=== PATIENT | female | born 1930 | race Caucasian/White ===

== ENCOUNTER 2017-08-24 13:48 | Inpatient (IN) | payer MEDICARE ==
[2017-08-24] MEDS ORDERED: SODIUM CHLORIDE 0.9% 1,000 ML IV ONE (14:12)
[2017-08-24] MEDS ORDERED: IBUPROFEN 600 MG TAB PO STA (14:12)
--- NOTE | 2017-08-24 14:20 | ED ---
General Adult HPI - General Chief complaint: Urogenital Stated complaint: Female Time Seen by Provider: 08/24/17 13:55 Source: patient Mode of arrival: ambulatory Limitations: no limitations - History of Present Illness Initial comments: 86-year-old female who presents with a chief complaint of fatigue and lower abdominal pain. The patient states that she was seen at urgent care earlier today where they performed a urinalysis and advised that she go to the emergency department. Review of the patient's urinalysis from urgent care shows mild leukocyte esterases but is otherwise unremarkable. Patient stated her symptoms going on for 3 days intermittently. She cannot identify any inciting incidences. There are no aggravating or alleviating factors. Patient states that her symptoms are worse at night. She admits to intermittent chills and back pain. She denies nausea or vomiting. Regarding the patient's back pain she states that she fell 3 days ago but was able to get herself up off the floor. She states while getting up she feels that she strained her lower back. - Related Data Home Medications Medication Instructions Recorded Confirmed Acetaminophen Tab [Tylenol Tab] 325 mg PO Q4H PRN 08/24/17 08/24/17 Cholecalciferol [Vitamin D3] 1,000 unit PO DAILY 08/24/17 08/24/17 [place] Unknown Dose 1 tab PO TID PRN 08/24/17 08/24/17 Ramipril 1.25 mg PO DAILY 08/24/17 08/24/17 Allergies Allergy/AdvReac Type Severity Reaction Status Date / Time No Known Allergies Allergy Verified 08/24/17 14:27 Review of Systems ROS Statement: Those systems with pertinent positive or pertinent negative responses have been documented in the HPI. ROS Other: All systems not noted in ROS Statement are negative. Constitutional: Reports: chills Respiratory: Reports: cough Genitourinary: Reports: dysuria Musculoskeletal: Reports: back pain Past Medical History Past Medical History: Hyperlipidemia, Hypertension, Thyroid Disorder History of Any Multi-Drug Resistant Organisms: None Reported Past Surgical History: Adenoidectomy, Appendectomy, Hysterectomy, Tonsillectomy Additional Past Surgical History / Comment(s): eye surgery Past Psychological History: No Psychological Hx Reported Smoking Status: Current every day smoker Past Alcohol Use History: None Reported Past Drug Use History: None Reported General Exam Limitations: no limitations General appearance: alert, in no apparent distress Head exam: Present: atraumatic, normocephalic Eye exam: Present: normal appearance ENT exam: Present: mucous membranes moist Neck exam: Absent: tenderness Respiratory exam: Present: normal lung sounds bilaterally. Absent: respiratory distress, wheezes Cardiovascular Exam: Present: normal rhythm, tachycardia GI/Abdominal exam: Present: tenderness (Patient has tenderness in the epigastric and right upper quadrant regions. There is minimal tenderness to palpation of the lower abdomen.) Rectal exam: Present: deferred Extremities exam: Present: normal inspection Back exam: Present: tenderness, CVA tenderness (R), CVA tenderness (L) Neurological exam: Present: alert, oriented X3 Psychiatric exam: Present: normal affect, normal mood Skin exam: Present: warm, dry, intact Course Vital Signs 08/24/17 13:50 Temperature 100.3 F H Pulse Rate 119 H Respiratory 20 Rate Blood Pressure 173/64 O2 Sat by Pulse 98 Oximetry Medical Decision Making - Medical Decision Making Patient presents with a chief complaint of dysuria and fatigue. On initial evaluation, patient is febrile and tachycardic otherwise vital signs are stable. At this time, Sepsis considered with an intraabdominal source. patient will be evaluated with basic and abdominal labs, EKG, cardiac enzymes, and x- rays. I will perform a bedside US to evaluate the gall bladder and further discuss imaging with the patient at that point. patient given motrin, and IVF. EKG performed at 1431 shows sinus tachycardia with a rate of 108 bpm. EKG is otherwise unremarkable. 4:46 PM Lab evaluation of this patient reveals evidence of a urinary tract infection and acute kidney injury with a creatinine of 1.30. Labs are otherwise unremarkable. Computed tomography scan of the abdomen and pelvis shows a 4 mm left-sided obstructing ureteral calculus with mild hydronephrosis. There is perinephric fat stranding out of proportion to other findings likely indicative of pyelonephritis. Patient was started on Rocephin. On reexamination, patient appears well and in no acute distress. I discussed admission with the patient, she is agreeable. This case was discussed with Dr. Vázquez who accepts admission with consults to Dr. Basurto. - Lab Data Result diagrams: 08/24/17 14:41 08/24/17 14:41 Lab Results 08/24/17 08/24/17 08/24/17 Range/Units 14:41 14:41 14:41 WBC 6.1 (3.8-10.6) k/uL RBC 3.95 (3.80-5.40) m/uL Hgb 12.5 (11.4-16.0) gm/dL Hct 38.5 (34.0-46.0) % MCV 97.5 (80.0-100.0) fL MCH 31.7 (25.0-35.0) pg MCHC 32.5 (31.0-37.0) g/dL RDW 13.5 (11.5-15.5) % Plt Count 136 L (150-450) k/uL Neutrophils % 89 % Lymphocytes % 5 % Monocytes % 3 % Eosinophils % 2 % Basophils % 0 % Neutrophils # 5.4 (1.3-7.7) k/uL Lymphocytes # 0.3 L (1.0-4.8) k/uL Monocytes # 0.2 (0-1.0) k/uL Eosinophils # 0.1 (0-0.7) k/uL Basophils # 0.0 (0-0.2) k/uL PT (9.0-12.0) sec INR (<1.2) APTT (22.0-30.0) sec Sodium 139 (137-145) mmol/L Potassium 5.1 (3.5-5.1) mmol/L Chloride 103 (98-107) mmol/L Carbon Dioxide 22 (22-30) mmol/L Anion Gap 14 mmol/L BUN 24 H (7-17) mg/dL Creatinine 1.30 H (0.52-1.04) mg/dL Est GFR (CKD-EPI)AfAm 44 (>60 ml/min/1.73 sqM) Est GFR (CKD-EPI)NonAf 38 (>60 ml/min/1.73 sqM) Glucose 83 (74-99) mg/dL Plasma Lactic Acid Don 1.1 (0.7-2.0) mmol/L Calcium 10.2 (8.4-10.2) mg/dL Total Bilirubin 0.8 (0.2-1.3) mg/dL AST 20 (14-36) U/L ALT 17 (9-52) U/L Alkaline Phosphatase 54 (38-126) U/L Troponin I (0.000-0.034) ng/mL NT-Pro-B Natriuret Pep pg/mL Total Protein 6.3 (6.3-8.2) g/dL Albumin 3.8 (3.5-5.0) g/dL Lipase 78 (23-300) U/L Urine Color Urine Appearance (Clear) Urine pH (5.0-8.0) Ur Specific [place] (1.001-1.035) Urine Protein (Negative) Urine Glucose (UA) (Negative) Urine Ketones (Negative) Urine Blood (Negative) Urine Nitrite (Negative) Urine Bilirubin (Negative) Urine Urobilinogen (<2.0) mg/dL Ur Leukocyte Esterase (Negative) Urine RBC (0-5) /hpf Urine WBC (0-5) /hpf Urine WBC Clumps (None) /hpf Ur Squamous Epith Cells (0-4) /hpf Urine Bacteria (None) /hpf Cellular Casts (0) /lpf 08/24/17 08/24/17 08/24/17 Range/Units 14:41 14:41 14:41 WBC (3.8-10.6) k/uL RBC (3.80-5.40) m/uL Hgb (11.4-16.0) gm/dL Hct (34.0-46.0) % MCV (80.0-100.0) fL MCH (25.0-35.0) pg MCHC (31.0-37.0) g/dL RDW (11.5-15.5) % Plt Count (150-450) k/uL Neutrophils % % Lymphocytes % % Monocytes % % Eosinophils % % Basophils % % Neutrophils # (1.3-7.7) k/uL Lymphocytes # (1.0-4.8) k/uL Monocytes # (0-1.0) k/uL Eosinophils # (0-0.7) k/uL Basophils # (0-0.2) k/uL PT 10.4 (9.0-12.0) sec INR 1.1 (<1.2) APTT 22.5 (22.0-30.0) sec Sodium (137-145) mmol/L Potassium (3.5-5.1) mmol/L Chloride (98-107) mmol/L Carbon Dioxide (22-30) mmol/L Anion Gap mmol/L BUN (7-17) mg/dL Creatinine (0.52-1.04) mg/dL Est GFR (CKD-EPI)AfAm (>60 ml/min/1.73 sqM) Est GFR (CKD-EPI)NonAf (>60 ml/min/1.73 sqM) Glucose (74-99) mg/dL Plasma Lactic Acid Don (0.7-2.0) mmol/L Calcium (8.4-10.2) mg/dL Total Bilirubin (0.2-1.3) mg/dL AST (14-36) U/L ALT (9-52) U/L Alkaline Phosphatase (38-126) U/L Troponin I <0.012 (0.000-0.034) ng/mL NT-Pro-B Natriuret Pep 263 pg/mL Total Protein (6.3-8.2) g/dL Albumin (3.5-5.0) g/dL Lipase (23-300) U/L Urine Color Urine Appearance (Clear) Urine pH (5.0-8.0) Ur Specific [place] (1.001-1.035) Urine Protein (Negative) Urine Glucose (UA) (Negative) Urine Ketones (Negative) Urine Blood (Negative) Urine Nitrite (Negative) Urine Bilirubin (Negative) Urine Urobilinogen (<2.0) mg/dL Ur Leukocyte Esterase (Negative) Urine RBC (0-5) /hpf Urine WBC (0-5) /hpf Urine WBC Clumps (None) /hpf Ur Squamous Epith Cells (0-4) /hpf Urine Bacteria (None) /hpf Cellular Casts (0) /lpf 08/24/17 Range/Units 15:27 WBC (3.8-10.6) k/uL RBC (3.80-5.40) m/uL Hgb (11.4-16.0) gm/dL Hct (34.0-46.0) % MCV (80.0-100.0) fL MCH (25.0-35.0) pg MCHC (31.0-37.0) g/dL RDW (11.5-15.5) % Plt Count (150-450) k/uL Neutrophils % % Lymphocytes % % Monocytes % % Eosinophils % % Basophils % % Neutrophils # (1.3-7.7) k/uL Lymphocytes # (1.0-4.8) k/uL Monocytes # (0-1.0) k/uL Eosinophils # (0-0.7) k/uL Basophils # (0-0.2) k/uL PT (9.0-12.0) sec INR (<1.2) APTT (22.0-30.0) sec Sodium (137-145) mmol/L Potassium (3.5-5.1) mmol/L Chloride (98-107) mmol/L Carbon Dioxide (22-30) mmol/L Anion Gap mmol/L BUN (7-17) mg/dL Creatinine (0.52-1.04) mg/dL Est GFR (CKD-EPI)AfAm (>60 ml/min/1.73 sqM) Est GFR (CKD-EPI)NonAf (>60 ml/min/1.73 sqM) Glucose (74-99) mg/dL Plasma Lactic Acid Don (0.7-2.0) mmol/L Calcium (8.4-10.2) mg/dL Total Bilirubin (0.2-1.3) mg/dL AST (14-36) U/L ALT (9-52) U/L Alkaline Phosphatase (38-126) U/L Troponin I (0.000-0.034) ng/mL NT-Pro-B Natriuret Pep pg/mL Total Protein (6.3-8.2) g/dL Albumin (3.5-5.0) g/dL Lipase (23-300) U/L Urine Color Light Yellow Urine Appearance Cloudy H (Clear) Urine pH 7.0 (5.0-8.0) Ur Specific [place] 1.008 (1.001-1.035) Urine Protein 1+ H (Negative) Urine Glucose (UA) Negative (Negative) Urine Ketones Negative (Negative) Urine Blood Small H (Negative) Urine Nitrite Negative (Negative) Urine Bilirubin Negative (Negative) Urine Urobilinogen <2.0 (<2.0) mg/dL Ur Leukocyte Esterase Moderate H (Negative) Urine RBC 19 H (0-5) /hpf Urine WBC 32 H (0-5) /hpf Urine WBC Clumps Occasional H (None) /hpf Ur Squamous Epith Cells <1 (0-4) /hpf Urine Bacteria Occasional H (None) /hpf Cellular Casts 1 (0) /lpf Disposition Clinical Impression: Urinary tract infection, Ureterolithiasis, SIRS (systemic inflammatory response syndrome) Disposition: ADMITTED IP TO THIS HOSP Is patient prescribed a controlled substance at d/c from ED?: No Referrals: Yung Vázquez MD [Primary Care Provider] - 1-2 days Decision to Admit Reason: Admit from EC - Out of Hospital Transfer - Req. Specs Out of Hospital Transfer - Requested Specifics: Other Non-Acute
[2017-08-24] MEDS ORDERED: RX INFO: IV CONTRAST WAS GIVEN 1 EACH MISC MISCELLANE PRN (14:31)
[2017-08-24 14:53] LABS: Basophils % (A) 0 %; Eosinophils # (A) 0.1 k/uL (0-0.7); Eosinophils % (A) 2 %; HCT 38.5 % (34.0-46.0); HGB 12.5 gm/dL (11.4-16.0); Lymphocytes # (A) 0.3 k/uL (1.0-4.8); Lymphocytes % (A) 5 %; MCH 31.7 pg (25.0-35.0); MCHC 32.5 g/dL (31.0-37.0); MCV 97.5 fL (80.0-100.0); Mean Platelet Volume 8.6; Monocytes # (A) 0.2 k/uL (0-1.0); Monocytes % (A) 3 %; Neutrophils # (A) 5.4 k/uL (1.3-7.7); Neutrophils % (A) 89 %; Platelet Count 136 k/uL (150-450); RBC 3.95 m/uL (3.80-5.40); RDW 13.5 % (11.5-15.5); WBC 6.1 k/uL (3.8-10.6)
[2017-08-24 15:03] LABS: Albumin 3.8 g/dL (3.5-5.0); Calcium 10.2 mg/dL (8.4-10.2); Potassium 5.1 mmol/L (3.5-5.1); Total Bilirubin 0.8 mg/dL (0.2-1.3); Total Protein 6.3 g/dL (6.3-8.2)
[2017-08-24 15:05] LABS: INR 1.1 (<1.2); Partial Thromboplastin Time 22.5 sec (22.0-30.0); Prothrombin Time 10.4 sec (9.0-12.0)
--- NOTE | 2017-08-24 15:14 | XR ---
EXAMINATION TYPE: XR chest 2V DATE OF EXAM: 08/24/2017 COMPARISON: NONE HISTORY: Fever, low back pain TECHNIQUE: Frontal and lateral views of the chest are obtained. FINDINGS: There is no focal air space opacity, pleural effusion, or pneumothorax seen. The cardiac silhouette size is within normal limits. Spondylosis noted in the visualized spine. There is mild spi nal curvature. The aorta is dense. The osseous structures are intact. IMPRESSION: No acute cardiopulmonary process.
--- NOTE | 2017-08-24 15:17 | XR ---
Lumbar spine HISTORY: Back pain No comparisons There is a dextroscoliosis centered at L3. Multilevel spondylosis is present. Loss of bone mineraliza tion is noted. Sclerosis present in the posterior elements of the lower lumbar spine. Lumbar vertebra l bodies show preserved height. Bone mineralization is reduced. There is a calcification superimposed over the left kidney measuring approximately 7 mm. Possible vascular calcifications within the pelvi s. IMPRESSION: Degenerative disc disease, osteopenia, scoliosis and facet arthropathy. Additional findin gs above. Possible nephrolithiasis.
--- NOTE | 2017-08-24 15:39 | CT ---
EXAMINATION TYPE: CT abdomen pelvis wo con DATE OF EXAM: 08/24/2017 COMPARISON: NONE HISTORY: 86-year-old female Female pain CT DLP: 300.5 mGycm. Automated exposure control for dose reduction was used. TECHNIQUE: Contiguous axial scanning of the abdomen and pelvis without IV contrast. Coronal and sagit vaughn reconstructions performed. FINDINGS: Heart is normal size with trace anterior basilar pericardial fluid. Some strandy dependent atelectasi s is noted. No pleural effusion. Small hiatal hernia. Noncontrast appearance of the liver, gallbladder, right adrenal gland, spleen, pancreas shows no guillermo s abnormality. There is a low-density 1.4 cm nodule in the left adrenal gland with attenuation of -7 Hounsfield unit s. There is a 7 mm nonobstructive calculus dependent in the right renal collecting system. No hydrone phrosis. An extrarenal pelvis is present on this side. Nonobstructive 8 mm and 3 mm left renal calculi. There is mild to moderate hydronephrosis which appea rs out of proportion to the degree of perinephric fat stranding and edema. 4 mm calculus at the left UVJ. Multiple pelvic phleboliths. Mild to moderate atherosclerotic calcifications throughout the abdominal aorta and iliac arteries. No dilated small bowel, free fluid, or free air. No mesenteric or retroperitoneal lymphadenopathy. Mild stool burden without pericolonic inflammatory change. There is sigmoid diverticulosis. Pelvic floor relaxation. Uterus surgically absent. No adnexal mass or abnormal fluid collection in th e pelvis. Bones: Degenerated dextroconvex scoliosis. Degenerative changes of the hips. No osseous destructive p rocess. Grade 1 anterolisthesis at L3-L4. IMPRESSION: 1. A 4 mm calculus at the left UVJ with mild to moderate obstructive uropathy. The degree of perinep hric fat stranding and edema is out of proportion to the degree of hydronephrosis suggesting either s uperimposed infection or more likely tiny urine extravasation from pyelosinus backflow. Clinically co rrelate. 2. A 7 mm calculus in the right renal collecting system. This calculus could potentially pass into t he ureter in the near future. 3. Additional nonobstructive left renal calculi measuring up to 8 mm. 4. Pelvic floor relaxation and sigmoid diverticulosis. 5. Small hiatal hernia and a 1.4 cm left adrenal adenoma.
[2017-08-24 15:45] LABS: Appearance,Urine Cloudy (Clear); Bacteria,Urine Occasional /hpf; Bilirubin,Urine Negative (Negative); Blood,Urine Small (Negative); Cellular Casts,Urine 1 /lpf (0); Color,Urine Light Yellow; Glucose,Urine (UA) Negative (Negative); Ketones,Urine Negative (Negative); Leukocyte Esterase,Urine Moderate (Negative); Nitrite,Urine Negative (Negative); Protein,Urine 1+ (Negative); RBC,Urine 19 /hpf (0-5); Specific Gravity,Urine 1.008 (1.001-1.035); Squamous Epithelial Cell,Urine <1 /hpf (0-4); Urobilinogen,Urine <2.0 mg/dL (<2.0); WBC,Urine 32 /hpf (0-5)
[2017-08-24] MEDS ORDERED: cefTRIAXone IN SWFI 1,000 MG/10 ML SYRINGE IVP STA (16:10)
[2017-08-24] MEDS ORDERED: NALOXONE 0.4 MG/ML 1 ML VIAL IV PRN (16:38)
[2017-08-24] MEDS ORDERED: oxyCODONE-APAP 5-325MG 1 EACH TAB PO PRN (16:38)
[2017-08-24] MEDS ORDERED: ONDANSETRON 4 MG/2 ML VIAL IVP PRN (16:38)
[2017-08-24] MEDS ORDERED: IBUPROFEN 400 MG TAB PO PRN (16:38)
[2017-08-24] MEDS ORDERED: TAMSULOSIN 0.4 MG CAP.ER.24H PO STA (18:22)
[2017-08-24] MEDS: SODIUM CHLORIDE 0.9% 1,000 ML IV SCH (19:50)
[2017-08-24] MEDS ORDERED: cefTRIAXone IN SWFI 1,000 MG/10 ML SYRINGE IVP SCH (20:00)
[2017-08-24] MEDS: KETOROLAC 30 MG/ML 1 ML VIAL IVP SCH (23:37)
--- NOTE | 2017-08-25 03:16 | HP ---
HISTORY AND PHYSICAL ATTENDING PHYSICIAN: Dr. Lyndon Vázquez. CHIEF COMPLAINT: Abdominal pain. HISTORY OF PRESENT ILLNESS: This 86-year-old was admitted to the hospital after evaluation in the emergency room. The patient presented to the emergency room with complaints of left flank pain. The patient says she has had some pain off and on for the past few days. The patient today decided to have it checked. She was going to come and drive down the emergency room when she suddenly started having shakiness and basically was unsteady. She felt unsteady. In view of this, she was asked the neighbor to bring her down to the emergency room who did bring her to the ER. The patient is evaluated in the emergency room, noted to have a temperature of 100.3, heart rate 103. The patient also had a CT scan of the abdomen done which revealed evidence of obstructive stone on the left side to the UV junction. There was also another stone in the right kidney. The radiologist report says there is a possibility of some infection not ruled out. The conclusion of the CT scan was the patient has a 4 mm left UVJ stone with [id number] obstructive uropathy and there was perinephric fat stranding and edema. However proportions due to the degree of hydronephrosis suggesting either superimposed infection or more likely tiny urine extravasation from the backflow. There is also a 7 mm calculus in the right renal collecting system with the potential risk of the passing down to this. Also, an additional left intrarenal calculus 8 mm in size and some sigmoid diverticulosis and a hiatal hernia with the left adrenal adenoma. The patient, in view of this, is admitted to the hospital for further medical management. The patient after initial hydration in the emergency room felt a bit better. At the time of my evaluation, patient is feeling fairly well. She is afebrile. However, she is still tachycardic at a rate of 110. Denies any pain. The patient denies any other symptoms. PAST MEDICAL HISTORY: Past medical history is primarily significant for no history of any nephrolithiasis. She has a history of hyperlipidemia. Also has a history of chronic kidney disease stage 3. Degenerative disc disease, lumbosacral area, gastroesophageal reflux with Camargo's esophagitis, and some anxiety disorder. PAST SURGICAL HISTORY: Significant for tonsils and adenoids, appendectomy, eye strabismus surgery, lower eyelid surgery, bilateral cataract surgery, total abdominal hysterectomy with bilateral salpingo-oophorectomy. SOCIAL HISTORY: Patient lives alone. She does exercise regularly. She has 1-5 cigarettes a day. Smoker. She has been smoking for the past 64 years. Alcohol: Glass of wine every day. FAMILY MEDICAL HISTORY: Father at the age of 87, ASHD. Mother at the age of 91, ASHD. A brother at the age of 60 cancer of the thyroid. Daughter in good health at age 67. A son 63 in good health and son 61 in good health. A son 57 in good health. REVIEW OF SYSTEMS: NEURO: Denies any headaches, dizziness. Psych no anxiety, depression. Cardiac: Denies chest pain, angina or palpitation. Respiratory: Denies shortness of breath, cough, hemoptysis. GI: Denies any nausea, vomiting. Present complaining of left flank pain. No diarrhea, constipation, hematochezia, melena. Symptoms of dysuria, hematuria, urgency, frequency. Extremities denies pain, edema. Constitutional: No fever, chills. MUSCULOSKELETAL: Back pain. The patient says she has done some physical work and she felt the back pain was hurting from that. She had also fallen and bruised her right arm and thought that at that time, she strained her back. Skin no rashes. CONSTITUTIONAL: Noted to have a low-grade temperature today, but no fever, chills at home. Hematological: No anemia, bleeding disorder. Endocrine: No history of diabetes mellitus or hypothyroidism. MEDICATIONS: Medications at home includes: 1. Ramipril 1.25 mg daily. 2. Tylenol. 3. Vitamin D3. 4. Occasional [place]. PHYSICAL EXAMINATION: Pleasant female at present in no distress. Vital signs reveals temperature in the ER was 100.5, pulse 108, respirations 18, blood pressure 133/76, pulse ox 95% room air. At the time of my evaluation, patient's heart rate was 111, temperature 98.3, blood pressure 119/66. HEENT: Normocephalic. NECK: Supple. No JVD. Pupils are reactive. Oral cavity is moist. Neck reveals no JVD, carotid bruits or thyromegaly. Chest examination is mild increased percussion noted bilaterally. Cardiac distant heart sounds S1, S2 with no gallop. Systolic murmur 2/6 left sternal border. Abdomen bilateral CVA tenderness. Bowel sounds active. No other masses. No abdominal bruits. No femoral bruits. Extremities revealed no edema. Good pulses upper and lower extremities. Neurological awake, alert, oriented with well-coordinated movements both upper and lower extremities. LAB ASSESSMENT: CBC which revealed a normal white count, hemoglobin, platelet count was 136. Electrolytes were normal. BUN 24, creatinine 1.3, which is slightly higher than previous. Calcium normal. Troponins negative. Urinalysis had 1+ protein, 19 RBCs, 32 WBCs, occasional bacteria. Nitrite negative. ASSESSMENT: 1. Abdominal pain associated with nephrolithiasis. 2. Left UVJ 4 mm calculus. 3. Right renal pelvic 8 mm stone. 4. Rule out urinary tract infection. 5. Mild thrombocytopenia. 6. Acute on chronic renal failure. PLAN: The patient is admitted to the hospital. Urine culture is pending. will continue. We will place the patient on Rocephin. The patient is given Flomax, pain medication with hydration. Repeat labs in the morning. Urology consult. The likelihood is the patient should pass the 4 mm stone. The patient's general condition is guarded. Prognosis guarded. Condition discussed with the patient. MMODL / IJN: [id number] /
[2017-08-25] MEDS: KETOROLAC 30 MG/ML 1 ML VIAL IVP SCH (05:56)
[2017-08-25] MEDS: SODIUM CHLORIDE 0.9% 1,000 ML IV SCH ×2 (05:57→15:26)
[2017-08-25] MEDS ORDERED: KETOROLAC 30 MG/ML 1 ML VIAL IVP PRN (06:40)
[2017-08-25 07:44] LABS: Basophils % (A) 0 %; Eosinophils # (A) 0.1 k/uL (0-0.7); Eosinophils % (A) 1 %; HCT 33.7 % (34.0-46.0); HGB 10.8 gm/dL (11.4-16.0); Lymphocytes # (A) 0.6 k/uL (1.0-4.8); Lymphocytes % (A) 8 %; MCH 32.3 pg (25.0-35.0); MCHC 32.1 g/dL (31.0-37.0); MCV 100.4 fL (80.0-100.0); Macrocytosis Slight; Mean Platelet Volume 8.9; Monocytes # (A) 0.5 k/uL (0-1.0); Monocytes % (A) 7 %; Neutrophils # (A) 5.7 k/uL (1.3-7.7); Neutrophils % (A) 82 %; Platelet Count 122 k/uL (150-450); RBC 3.36 m/uL (3.80-5.40); RDW 13.6 % (11.5-15.5)
[2017-08-25 07:58] LABS: Calcium 8.5 mg/dL (8.4-10.2)
[2017-08-25] MEDS: cefTRIAXone IN SWFI 1,000 MG/10 ML SYRINGE IVP SCH (09:11)
[2017-08-25] MEDS: HEPARIN SODIUM,PORCINE 5,000 UNIT/ML 1 ML VIAL SQ SCH ×2 (09:11→21:48)
[2017-08-25] MEDS: LISINOPRIL 5 MG TAB PO SCH (09:11)
--- NOTE | 2017-08-25 14:00 | XR ---
EXAMINATION TYPE: XR KUB DATE OF EXAM: 08/25/2017 HISTORY: Pain Comparison: None. Single KUB is submitted for interpretation. Findings: Right renal calculi: 6.6 mm calculus lower pole right kidney. Right ureteral calculi: None Visualized. Left renal calculi: 5.9 mm calculus lower pole left kidney. Left ureteral calculi: None Visualized. Pelvic calcifications: None Visualized. Bowel gas pattern is unremarkable. No free air. No mass effects. IMPRESSION: 1. Bilateral nephrolithiasis.
[2017-08-25] MEDS: ACETAMINOPHEN TAB 325 MG TAB PO PRN (17:18)
--- NOTE | 2017-08-25 21:29 | P.GSCN ---
History of Present Illness Consult date: 08/25/17 Reason for Consult: Left ureteral calculus Requesting physician: Yung Vázquez History of present illness: The patient is an 86-year-old white female who presents with a several-day history of left flank pain. She denies nausea, vomiting, fever, and chills. She has been found to have left hydronephrosis due to a 4 mm calculus at the left ureterovesical junction. Bilateral renal calculi are also noted. Her primary complaint today is urinary urgency. She has had a low-grade fever intermittently since the time of admission but is currently afebrile. Her WBC count is normal. Her urine culture is pending, but blood cultures have shown gram-negative bacilli. Review of Systems - Constitutional Denies chills, Denies fever - Gastrointestinal Denies nausea, Denies vomiting - Genitourinary Genitourinary: Reports flank pain, Reports kidney stones, Reports urgency, Denies dysuria, Denies hematuria Past Medical History Past Medical History: Hyperlipidemia, Hypertension, Osteoarthritis (OA), Sleep Apnea/CPAP/BIPAP, Thyroid Disorder Additional Past Medical History / Comment(s): used to take thyroid meds, rls, arthritis in hands, past gerd, past uterine fibroids History of Any Multi-Drug Resistant Organisms: None Reported Past Surgical History: Adenoidectomy, Appendectomy, Hysterectomy, Tonsillectomy Additional Past Surgical History / Comment(s): hx of "cross eyed"-sx to correct. cataracts-lens implants, eye lift Past Anesthesia/Blood Transfusion Reactions: No Reported Reaction Past Psychological History: Panic Disorder, PTSD Additional Psychological History / Comment(s): pt is . lives alone in single level home. has life alert. uses cane when up. has a cleaning service. drives. Smoking Status: Current every day smoker Past Alcohol Use History: Daily Additional Past Alcohol Use History / Comment(s): started smoking at age 21, currently smokes 2-3 cig/day and enjoys 1-2 coctails at night Past Drug Use History: None Reported - Past Family History Father Additional Family Medical History / Comment(s): cardiac problems Mother Additional Family Medical History / Comment(s): mom fom old age Medications and Allergies Home Medications Medication Instructions Recorded Confirmed Type Acetaminophen Tab [Tylenol Tab] 325 mg PO Q4H PRN 08/24/17 08/24/17 History Cholecalciferol [Vitamin D3] 1,000 unit PO DAILY 08/24/17 08/24/17 History [place] Unknown Dose 1 tab PO TID PRN 08/24/17 08/24/17 History Ramipril 1.25 mg PO DAILY 08/24/17 08/24/17 History Allergies Allergy/AdvReac Type Severity Reaction Status Date / Time No Known Allergies Allergy Verified 08/24/17 14:27 Surgical - Exam Vital Signs Temp Pulse Resp BP Pulse Ox 100.3 F H 119 H 20 173/64 98 08/24/17 13:50 08/24/17 13:50 08/24/17 13:50 08/24/17 13:50 08/24/17 13:50 - General well developed, well nourished, no distress - Abdomen Abdomen: soft, tender (Mild left CVA tenderness), no guarding, no rigid, no rebound - Psychiatric oriented to time, oriented to person, oriented to place, speech is normal, memory intact Results - Labs 08/25/17 07:18 08/25/17 07:18 Abnormal Lab Results - Last 24 Hours (Table) 08/25/17 08/25/17 Range/Units 07:18 07:18 RBC 3.36 L (3.80-5.40) m/uL Hgb 10.8 L (11.4-16.0) gm/dL Hct 33.7 L (34.0-46.0) % MCV 100.4 H (80.0-100.0) fL Plt Count 122 L (150-450) k/uL Lymphocytes # 0.6 L (1.0-4.8) k/uL Chloride 109 H (98-107) mmol/L Carbon Dioxide 19 L (22-30) mmol/L BUN 25 H (7-17) mg/dL Creatinine 1.30 H (0.52-1.04) mg/dL Microbiology - Last 24 Hours (Table) 08/24/17 14:41 Blood Culture Gram Stain - Preliminary Blood Blood Culture - Preliminary Gram Neg Bacilli 08/24/17 14:41 Blood Culture - Final Blood 08/24/17 15:27 Urine Culture - Preliminary Urine,Voided Diabetes panel 08/25/17 Range/Units 07:18 Sodium 138 (137-145) mmol/L Potassium 4.0 (3.5-5.1) mmol/L Chloride 109 H (98-107) mmol/L Carbon Dioxide 19 L (22-30) mmol/L BUN 25 H (7-17) mg/dL Creatinine 1.30 H (0.52-1.04) mg/dL Glucose 78 (74-99) mg/dL Calcium 8.5 (8.4-10.2) mg/dL Calcium panel 08/25/17 Range/Units 07:18 Calcium 8.5 (8.4-10.2) mg/dL Pituitary panel 08/25/17 Range/Units 07:18 Sodium 138 (137-145) mmol/L Potassium 4.0 (3.5-5.1) mmol/L Chloride 109 H (98-107) mmol/L Carbon Dioxide 19 L (22-30) mmol/L BUN 25 H (7-17) mg/dL Creatinine 1.30 H (0.52-1.04) mg/dL Glucose 78 (74-99) mg/dL Calcium 8.5 (8.4-10.2) mg/dL Adrenal panel 08/25/17 Range/Units 07:18 Sodium 138 (137-145) mmol/L Potassium 4.0 (3.5-5.1) mmol/L Chloride 109 H (98-107) mmol/L Carbon Dioxide 19 L (22-30) mmol/L BUN 25 H (7-17) mg/dL Creatinine 1.30 H (0.52-1.04) mg/dL Glucose 78 (74-99) mg/dL Calcium 8.5 (8.4-10.2) mg/dL - Imaging CT scan - abdomen: report reviewed, image reviewed Assessment and Plan (1) Ureterolithiasis Current Visit: Yes Status: Acute Code(s): N20.1 - CALCULUS OF URETER SNOMED Code(s): 27282950 (2) Hydronephrosis with urinary obstruction due to ureteral calculus Current Visit: Yes Status: Acute Code(s): N13.2 - HYDRONEPHROSIS WITH RENAL AND URETERAL CALCULOUS OBSTRUCTION SNOMED Code(s): 507117679 (3) Bilateral nephrolithiasis Current Visit: Yes Status: Acute Code(s): N20.0 - CALCULUS OF KIDNEY SNOMED Code(s): 32933149 Plan: I had a lengthy discussion with Mrs. WILSON regarding her condition. In summary, she has moderate left hydronephrosis due to a 4 mm calculus at the left ureterovesical junction. There is significant left perinephric stranding, suggestive of pyelonephritis and/or a forniceal rupture. Bilateral renal calculi are also noted, though these are not contributing to her condition at this time. A preliminary blood culture shows gram-negative bacilli, which is likely of urinary origin. In view of this, I have suggested she undergo cystoscopy with left ureteral stent insertion. I discussed the rationale for this procedure with her, and also explained the potential risks. These include anesthesia, ureteral injury, and inability to successfully place the stent. In either of the latter 2 scenarios, she may require left percutaneous nephrostomy tube insertion. I am hopeful that I can perform this procedure tomorrow. In the meantime, her urine will be strained as the procedure will be unnecessary if she successfully passes the calculus. Time with Patient: Greater than 30
[2017-08-26] MEDS: SODIUM CHLORIDE 0.9% 1,000 ML IV SCH ×3 (02:23→20:30)
--- NOTE | 2017-08-26 05:20 | PN ---
PROGRESS NOTE CHIEF COMPLAINT: Re-evaluation. HISTORY OF PRESENT ILLNESS: This 86-year-old female was admitted to the hospital yesterday with low-grade fever and suggestion of urinary tract infection. The patient's blood cultures came back positive. The patient also has nephrolithiasis with a left UVJ stone. The patient is pain free and suspect she might have passed the stone. The patient also has bilateral renal calculi. She is feeling better today. Actually, she does not appear sick today. REVIEW OF SYSTEMS: NEURO: Denies any headaches, dizziness. PSYCH: No anxiety. CARDIAC: No chest pain, angina, palpitation. RESPIRATORY: No shortness of breath, cough, hemoptysis. GI: No nausea, vomiting, abdominal pain, diarrhea. : No symptoms of dysuria or hematuria. EXTREMITIES: No pain or edema. CONSTITUTIONAL: No fever or chills. MUSCULOSKELETAL: Lower back pain. PHYSICAL EXAMINATION: A pleasant female in no distress. Vital signs reveal temperature 97.9, pulse 71, respirations 16, blood pressure 114/56, pulse ox 98% on room air. HEENT: Normocephalic. NECK: Decreased range of motion. No JVD. CHEST: Clear to auscultation. CARDIAC: Normal S1, S2 with no gallops. Systolic murmur 2/6 left sternal border. ABDOMEN: Soft. Bowel sounds active. Mild tenderness in the left CVA area. Extremities reveal no edema, no tenderness. NEUROLOGICAL: Awake, alert, oriented x3 with well-coordinated movements. LABORATORY ASSESSMENT: A CBC which revealed white count of 7, hemoglobin 10.8, platelets 122. Electrolytes are normal. BUN 25, creatinine 1.3. Urine culture positive for gram negative and blood cultures positive gram-negative. KUB reveals bilateral renal stones. The UVJ stone does not appear to be seen on my review of the film. Radiologist reports also the same. ASSESSMENT: 1. Urinary tract infection with sepsis. 2. Obstructive uropathy. 3. Nephrolithiasis. 4. Chronic kidney disease stage 3. 5. Thrombocytopenia. PLAN: Continue present medical regimen with IV antibiotics, IV fluids. The patient seems to have passed the UV junction stone. Surgical consultation with Dr. Enrique reviewed. Dr. Enrique suggested the patient undergo cystoscopy with left ureteral stent insertion. The patient's condition discussed with the patient. Prognosis guarded. MMODL / IJN: [id number] /
[2017-08-26] MEDS: HEPARIN SODIUM,PORCINE 5,000 UNIT/ML 1 ML VIAL SQ SCH ×2 (07:51→20:30)
[2017-08-26] MEDS: cefTRIAXone IN SWFI 1,000 MG/10 ML SYRINGE IVP SCH (09:13)
[2017-08-26] MEDS: LISINOPRIL 5 MG TAB PO SCH (09:13)
[2017-08-26] MEDS: ACETAMINOPHEN TAB 325 MG TAB PO PRN ×2 (13:36→23:26)
--- NOTE | 2017-08-26 15:48 | P.PN ---
Progress Note - Text Progress Note Date: 08/26/17 Mrs. Chavarria Past a small calculus this morning and feels well. A headache is her only complaint at this time. She is afebrile with stable vital signs. Urine and blood cultures of shown gram-negative bacilli. She is currently receiving Rocephin, pending the final culture results. It does not appear that she will require urologic intervention during this hospitalization. We discussed the fact that she has bilateral renal calculi, including a 7 mm calculus within the right renal pelvis. She was advised to consider treatment for these calculi, particularly the right renal pelvic calculus, though observation is not unreasonable if she is asymptomatic. She will follow up in 2 weeks to confirm resolution of her UTI and further discuss the management of her renal calculi.
--- NOTE | 2017-08-26 22:18 | PN ---
PROGRESS NOTE CHIEF COMPLAINT: Re-evaluation. HISTORY OF PRESENT ILLNESS: 86-year-old female was admitted to the hospital with left flank pain. The patient noted to have a left UVJ 4 mm stone. The neurologist was planning to surgically remove it today. However, the patient just prior to my evaluation did pass the stone. In view of this, the surgical procedure will be canceled. The patient had obstructive uropathy with pyelonephritis and infection including bacteremia. The patient actually is feeling fairly well. Denies any symptoms, though she did have a low-grade temperature of 100.8 yesterday. The patient denies any flank pain. However, on examination, she is still cleaner over the left CVA. REVIEW OF SYSTEMS: NEURO: Denies any headaches or dizziness. Psych: No anxiety. Cardiac: No chest pain, angina, palpitation. Respiratory: Denies shortness of breath, cough, hemoptysis. GI no nausea, vomiting, abdominal pain, diarrhea. : No symptoms of dysuria or hematuria. Extremities: No pain or edema. Constitutional: No fever or chills. PHYSICAL EXAMINATION: Pleasant female in no distress. Vital signs reveals temperature 98, pulse 53, respirations 18, blood pressure 158/72, pulse ox of 94% on room air. HEENT: Normocephalic. Neck decreased range of motion. CHEST: Clear to auscultation and percussion. Cardiac: Normal S1, S2 with no gallops, murmurs. ABDOMEN: Soft. Left CVA tenderness present. Bowel sounds present. Extremities revealed no edema. Good pulses both upper and lower extremities. Neurological awake, alert, oriented with well-coordinated movements. LABORATORY ASSESSMENT: Blood culture which reveals E coli. Urine culture, E coli sensitive to all antibiotics. White count is normal 7.0, hemoglobin of 10.8 yesterday. BUN was 25, creatinine 1.3. ASSESSMENT: 1. Obstructive uropathy with improvement. 2. Nephrolithiasis. 3. Passed kidney stone. 4. Left pyelonephritis. 5. Urinary tract infection with bacteremia. 6. Chronic kidney disease stage 3. PLAN: The patient is doing better. Surgical procedure is not indicated. Continue antibiotic for now. If the patient remains afebrile over the next 24 hours we will plan on discharge. Patient's condition discussed with the patient. Prognosis guarded. MMODL / IJN: [id number] /
[2017-08-26] MEDS ORDERED: LORazepam 1 MG TAB PO STA (22:40)
[2017-08-27 07:09] LABS: HCT 30.7 % (34.0-46.0); MCH 32.1 pg (25.0-35.0); MCHC 32.6 g/dL (31.0-37.0); MCV 98.6 fL (80.0-100.0); Mean Platelet Volume 8.8; Platelet Count 109 k/uL (150-450); RBC 3.11 m/uL (3.80-5.40); RDW 13.8 % (11.5-15.5); WBC 2.4 k/uL (3.8-10.6)
[2017-08-27 07:26] LABS: Calcium 8.4 mg/dL (8.4-10.2); Potassium 3.7 mmol/L (3.5-5.1)
[2017-08-27 08:25] VITALS: BP 175/81; PULSE 71; RESP 18; TEMP 97.6
[2017-08-27] MEDS: cefTRIAXone IN SWFI 1,000 MG/10 ML SYRINGE IVP SCH (09:08)
[2017-08-27] MEDS: HEPARIN SODIUM,PORCINE 5,000 UNIT/ML 1 ML VIAL SQ SCH (09:08)
[2017-08-27] MEDS: SODIUM CHLORIDE 0.9% 1,000 ML IV SCH (09:08)
[2017-08-27] MEDS: LISINOPRIL 5 MG TAB PO SCH (09:09)
--- NOTE | 2017-08-29 13:05 | P.DS ---
Providers Date of admission: 08/24/17 16:38 Attending physician: Yung Vázquez Consults: 08/24/17 16:40 Consult Physician Routine Consulting Provider: Jerry Basurto Consult Reason/Comments: UTI, ureterolithiasis Do you want consulting provider notified?: Yes Primary care physician: Yung Vázquez [facility] Hospital Course: This 86-year-old female was admitted to the hospital with chills and low-grade temperature and evidence suggestive urinary tract infection in the left UVJ stone. The patient had obstructive uropathy due to the nephrolithiasis. She has one kidney stone the right kidney 1 stone in the left kidney and 1 stone in the ureter. The patient's started on IV antibiotic. Urine culture showed 2 different kinds of E. coli one resistant to Rocephin. Patient also had positive blood culture which showed E. coli sensitive to Rocephin. Patient's general condition improved rapidly once she passed a stone. Patient was seen by urology. The patient will be followed up by them for possible lithotripsy. Meanwhile the patient and no further fever improved white count ambulating. Her white count and platelet counts are actually decreased with no symptoms. Patient does have a history of chronic kidney disease stage III. She complained of seizures which she describes as a sensation of falling while in bed. Symptoms lasting couple seconds. No focal neurological deficits. Patient to follow-up in outpatient regarding this. Follow-up regarding CBC abnormalities Final diagnosis to include 1. Urinary tract infection with sepsis/bacteremia 2. E. coli bacteremia 3. Obstructive uropathy left kidney due to left ureteric stone 4. Nephrolithiasis 5. Chronic kidney disease stage III 6. Acute on chronic renal failure improved with obstruction and urinary tract infection 7. Thrombocytopenia 8. Leukopenia Plan - Discharge Summary Discharge Rx Participant: No New Discharge Prescriptions: New Acetaminophen Tab [Tylenol] 650 mg PO Q6HR PRN tab PRN Reason: Mild Pain Or Fever > 100.5 Levofloxacin [Levaquin] 250 mg PO DAILY #14 tablet LORazepam [Ativan] 1 mg PO BID PRN #30 tab PRN Reason: Anxiety Continue Cholecalciferol [Vitamin D3] 1,000 unit PO DAILY Acetaminophen Tab [Tylenol] 325 mg PO Q4H PRN PRN Reason: Pain Ramipril 1.25 mg PO DAILY [place] Unknown Dose 1 tab PO TID PRN PRN Reason: Pain Discharge Medication List Acetaminophen Tab [Tylenol] 325 mg PO Q4H PRN 08/24/17 [History] Cholecalciferol [Vitamin D3] 1,000 unit PO DAILY 08/24/17 [History] [place] Unknown Dose 1 tab PO TID PRN 08/24/17 [History] Ramipril 1.25 mg PO DAILY 08/24/17 [History] Acetaminophen Tab [Tylenol] 650 mg PO Q6HR PRN tab 08/27/17 [Rx] LORazepam [Ativan] 1 mg PO BID PRN #30 tab 08/27/17 [Rx] Levofloxacin [Levaquin] 250 mg PO DAILY #14 tablet 08/27/17 [Rx] Follow up Appointment(s)/Referral(s): Yung Vázquez MD [Primary Care Provider] - 09/01/17 3:30 pm Cecilio Enrique MD [STAFF PHYSICIAN] - 2 Weeks (Dr. Enrique's office will call patient with an appointment date and time. ) Patient Instructions/Handouts: Lorazepam (By mouth), Levofloxacin (By mouth), Urinary Tract Infection in Women (DC) Discharge Disposition: HOME WITH HOME HEALTH SERVICES
== END 2017-08-27 10:32 | disposition home health service (06) | DRG 872 ==
LOC: EC 13:48 → 5MS5E 16:38
PROVIDERS: ADMIT Internal Medicine; ATTEND Internal Medicine
DX: A41.51 Sepsis due to Escherichia coli [E. coli] (principal); N17.9 Acute kidney failure, unspecified; N13.6 Pyonephrosis; D35.02 Benign neoplasm of left adrenal gland; D69.6 Thrombocytopenia, unspecified; D72.819 Decreased white blood cell count, unspecified; E78.5 Hyperlipidemia, unspecified; F41.0 Panic disorder [episodic paroxysmal anxiety]; F43.10 Post-traumatic stress disorder, unspecified; G25.81 Restless legs syndrome; G47.30 Sleep apnea, unspecified; I12.9 Hypertensive chronic kidney disease with stage 1 through stage 4 chronic kidney disease, or unspecified chronic kidney disease; K21.9 Gastro-esophageal reflux disease without esophagitis; K22.70 Barrett's esophagus without dysplasia; K44.9 Diaphragmatic hernia without obstruction or gangrene; K57.30 Diverticulosis of large intestine without perforation or abscess without bleeding; N18.3 Chronic kidney disease, stage 3 (moderate); R56.9 Unspecified convulsions; M51.37 Other intervertebral disc degeneration, lumbosacral region; M19.042 Primary osteoarthritis, left hand; M19.041 Primary osteoarthritis, right hand; F17.210 Nicotine dependence, cigarettes, uncomplicated; W19.XXXA Unspecified fall, initial encounter; Z79.899 Other long term (current) drug therapy; Z90.710 Acquired absence of both cervix and uterus; Z90.49 Acquired absence of other specified parts of digestive tract; Z98.42 Cataract extraction status, left eye; Z98.41 Cataract extraction status, right eye; Z96.1 Presence of intraocular lens; Z16.19 Resistance to other specified beta lactam antibiotics; Z82.49 Family history of ischemic heart disease and other diseases of the circulatory system; Z80.8 Family history of malignant neoplasm of other organs or systems
CPT/HCPCS: 36415; 71046; 72100; 74018; 74176; 80048; 80053; 81001; 82365; 83605; 83690; 83880; 84484; 85025; 85027; 85610; 85730; 87040; 87077; 87086; 87186; 93005; 94760; 96374; 99285

== ENCOUNTER → 2017-09-10 | Outpatient (CLI) | payer MEDICARE ==
--- NOTE | 2017-09-11 07:30 | US ---
EXAMINATION TYPE: US kidneys/renal and bladder DATE OF EXAM: 09/10/2017 COMPARISON: NONE CLINICAL HISTORY: N20.0 calculus of kidney. History of kidney stones EXAM MEASUREMENTS: Right Kidney: 9.0 x 4.2 x 3.7 cm Left Kidney: 8.9 x 3.7 x 3.9 cm Technical limitations due to large amount of overlying bowel content Right Kidney: cystic areas noted, largest = 1.3cm, internal echoes identified. Possible stone lower p ole = 0.8cm Left Kidney: cystic area lower pole = 1.1cm, internal echoes identified. Stone lower pole = 0.7cm Bladder: appears wnl as visualized Bilateral Jets seen: no There is no evidence for hydronephrosis at this point in time. The urinary bladder is anechoic. Wayne ateral ureteral jets are seen. IMPRESSION: 1. Nonobstructing nephrolithiasis as noted. 2. Nonsimple cyst can be further evaluated with contrast CT of the kidneys.
== END | disposition home or self-care (01) ==
LOC: RADUSWWP 15:48
PROVIDERS: ATTEND Urology
DX: N20.0 Calculus of kidney (principal)
CPT/HCPCS: 76770

== ENCOUNTER → 2018-01-14 | Outpatient (CLI) | payer MEDICARE | END | disposition home or self-care (01) | LOC: LABWHC1 11:13 | PROVIDERS: ATTEND Urology | DX: N39.0 Urinary tract infection, site not specified (principal) | CPT/HCPCS: 87077; 87086; 87186 ==

== ENCOUNTER 2018-02-20 10:10 | Emergency (ER) | payer MEDICARE ==
[2018-02-20 10:15] VITALS: TEMP 97.2
[2018-02-20] MEDS ORDERED: MORPHINE SULFATE 2 MG/ML SYRINGE IVP STA (11:12)
[2018-02-20] MEDS ORDERED: KETOROLAC 30 MG/ML 1 ML VIAL IVP STA (11:12)
[2018-02-20] MEDS ORDERED: SODIUM CHLORIDE 0.9% 1,000 ML IV STA (11:12)
--- NOTE | 2018-02-20 11:17 | ED ---
Abdominal Pain HPI - General Chief Complaint: Back Pain/Injury Stated Complaint: POSS KIDNEY PROBLEM Time Seen by Provider: 02/20/18 10:30 Source: patient, RN notes reviewed, old records reviewed Mode of arrival: ambulatory Limitations: no limitations - History of Present Illness Initial Comments: This is an 87-year-old female to the ER for evaluation. Patient presents today for evaluation regards to abdominal pain right flank pain middle back pain. No injury or traumatic event. No fevers. No loss of bowel or bladder no pain with urination, no diarrhea. Patient has no modifying factors for symptoms. Does have history of kidney stones history of UTI) feels mildly different. Patient is scheduled to see urology MD Complaint: abdominal pain, flank pain (Right) -: hour(s) Location: R flank Radiation: back (Mid back), other Migration to: suprapubic Severity: mild Severity scale (1-10): 3 Quality: stabbing, aching Consistency: constant Improves With: nothing Worsens With: nothing Associated Symptoms: denies other symptoms - Related Data Home Medications Medication Instructions Recorded Confirmed Acetaminophen Tab [Tylenol] 325 mg PO Q4H PRN 08/24/17 08/24/17 Cholecalciferol [Vitamin D3] 1,000 unit PO DAILY 08/24/17 08/24/17 [place] Unknown Dose 1 tab PO TID PRN 08/24/17 08/24/17 Ramipril 1.25 mg PO DAILY 08/24/17 08/24/17 Previous Rx's Medication Instructions Recorded Acetaminophen Tab [Tylenol] 650 mg PO Q6HR PRN tab 08/27/17 LORazepam [Ativan] 1 mg PO BID PRN #30 tab 08/27/17 Levofloxacin [Levaquin] 250 mg PO DAILY #14 tablet 08/27/17 Naproxen 250 mg PO BID #20 tablet 02/20/18 Tamsulosin [Flomax] 0.4 mg PO DAILY #7 cap 02/20/18 Allergies Allergy/AdvReac Type Severity Reaction Status Date / Time No Known Allergies Allergy Verified 02/20/18 10:15 Review of Systems ROS Statement: Those systems with pertinent positive or pertinent negative responses have been documented in the HPI. ROS Other: All systems not noted in ROS Statement are negative. Past Medical History Past Medical History: Hyperlipidemia, Hypertension, Osteoarthritis (OA), Sleep Apnea/CPAP/BIPAP, Thyroid Disorder Additional Past Medical History / Comment(s): used to take thyroid meds, rls, arthritis in hands, past gerd, past uterine fibroids History of Any Multi-Drug Resistant Organisms: ESBL Date of last positivie culture/infection: 08/24/17 MDRO Source:: URINE Past Surgical History: Adenoidectomy, Appendectomy, Hysterectomy, Tonsillectomy Additional Past Surgical History / Comment(s): hx of "cross eyed"-sx to correct. cataracts-lens implants, eye lift Past Anesthesia/Blood Transfusion Reactions: No Reported Reaction Past Psychological History: Panic Disorder, PTSD Smoking Status: Current every day smoker Past Alcohol Use History: Daily Past Drug Use History: None Reported - Past Family History Father Additional Family Medical History / Comment(s): cardiac problems Mother Additional Family Medical History / Comment(s): mom fom old age General Exam - General Exam Comments Initial Comments: No tenderness noted on exam Limitations: no limitations General appearance: alert, in no apparent distress Head exam: Present: atraumatic, normocephalic, normal inspection Eye exam: Present: normal appearance, PERRL, EOMI. Absent: scleral icterus, conjunctival injection, periorbital swelling ENT exam: Present: normal exam, mucous membranes moist Neck exam: Present: normal inspection. Absent: tenderness, meningismus, lymphadenopathy Respiratory exam: Present: normal lung sounds bilaterally. Absent: respiratory distress, wheezes, rales, rhonchi, stridor Cardiovascular Exam: Present: regular rate, normal rhythm, normal heart sounds. Absent: systolic murmur, diastolic murmur, rubs, gallop, clicks GI/Abdominal exam: Present: soft, normal bowel sounds. Absent: distended, tenderness, guarding, rebound, rigid Extremities exam: Present: normal inspection, full ROM, normal capillary refill. Absent: tenderness, pedal edema, joint swelling, calf tenderness Back exam: Present: normal inspection Neurological exam: Present: alert, oriented X3, CN II-XII intact Psychiatric exam: Present: normal affect, normal mood Skin exam: Present: warm, dry, intact, normal color. Absent: rash Course Vital Signs 02/20/18 10:10 Temperature 97.2 F L Pulse Rate 68 Respiratory 16 Rate Blood Pressure 180/79 O2 Sat by Pulse 100 Oximetry - Reevaluation(s) Reevaluation #1: 02/20/18 11:52 Medical record is reviewed Reevaluation #2: 02/20/18 11:52 Patient has current adequate pain control Reevaluation #3: 02/20/18 13:10 His symptoms remain improved Medical Decision Making - Medical Decision Making 5 female the ER for evaluation of flank pain. Patient has history of kidney stones, patient currently does have +3.3 mm kidney stone. Patient will continue follow-up with urology as directed. Patient can be discharged home - Lab Data Result diagrams: 02/20/18 11:37 02/20/18 11:37 Lab Results 02/20/18 02/20/18 02/20/18 Range/Units 11:37 11:37 12:37 WBC 6.4 (3.8-10.6) k/uL RBC 3.68 L (3.80-5.40) m/uL Hgb 11.8 (11.4-16.0) gm/dL Hct 37.1 (34.0-46.0) % MCV 100.8 H (80.0-100.0) fL MCH 32.0 (25.0-35.0) pg MCHC 31.8 (31.0-37.0) g/dL RDW 12.8 (11.5-15.5) % Plt Count 177 (150-450) k/uL Neutrophils % 71 % Lymphocytes % 16 % Monocytes % 7 % Eosinophils % 4 % Basophils % 0 % Neutrophils # 4.5 (1.3-7.7) k/uL Lymphocytes # 1.0 (1.0-4.8) k/uL Monocytes # 0.5 (0-1.0) k/uL Eosinophils # 0.3 (0-0.7) k/uL Basophils # 0.0 (0-0.2) k/uL Sodium 141 (137-145) mmol/L Potassium 5.2 H (3.5-5.1) mmol/L Chloride 109 H (98-107) mmol/L Carbon Dioxide 25 (22-30) mmol/L Anion Gap 7 mmol/L BUN 31 H (7-17) mg/dL Creatinine 1.48 H (0.52-1.04) mg/dL Est GFR (CKD-EPI)AfAm 37 (>60 ml/min/1.73 sqM) Est GFR (CKD-EPI)NonAf 32 (>60 ml/min/1.73 sqM) Glucose 92 (74-99) mg/dL Calcium 10.1 (8.4-10.2) mg/dL Total Bilirubin 0.4 (0.2-1.3) mg/dL AST 24 (14-36) U/L ALT 19 (9-52) U/L Alkaline Phosphatase 55 (38-126) U/L Total Protein 6.8 (6.3-8.2) g/dL Albumin 3.9 (3.5-5.0) g/dL Amylase 58 (30-110) U/L Lipase 95 (23-300) U/L Urine Color Yellow Urine Appearance Cloudy H (Clear) Urine pH 6.0 (5.0-8.0) Ur Specific [place] 1.012 (1.001-1.035) Urine Protein Trace H (Negative) Urine Glucose (UA) Negative (Negative) Urine Ketones Negative (Negative) Urine Blood Moderate H (Negative) Urine Nitrite Negative (Negative) Urine Bilirubin Negative (Negative) Urine Urobilinogen <2.0 (<2.0) mg/dL Ur Leukocyte Esterase Negative (Negative) Urine RBC 139 H (0-5) /hpf Urine WBC 1 (0-5) /hpf Ur Squamous Epith Cells 5 H (0-4) /hpf Urine Mucus Rare H (None) /hpf - Radiology Data Radiology results: report reviewed (CT of The abdomen and pelvis positive right- sided), image reviewed Disposition Clinical Impression: Ureterolithiasis, Hydronephrosis with urinary obstruction due to ureteral calculus, Right kidney stone Disposition: HOME SELF-CARE Condition: Good Instructions: Kidney Stones (ED) Prescriptions: Naproxen 250 mg PO BID #20 tablet Tamsulosin [Flomax] 0.4 mg PO DAILY #7 cap Is patient prescribed a controlled substance at d/c from ED?: No Referrals: Yung Vázquez MD [Primary Care Provider] - 1-2 days
[2018-02-20 11:54] LABS: Basophils % (A) 0 %; Eosinophils # (A) 0.3 k/uL (0-0.7); Eosinophils % (A) 4 %; HCT 37.1 % (34.0-46.0); HGB 11.8 gm/dL (11.4-16.0); Lymphocytes % (A) 16 %; MCHC 31.8 g/dL (31.0-37.0); MCV 100.8 fL (80.0-100.0); Mean Platelet Volume 8.7; Monocytes # (A) 0.5 k/uL (0-1.0); Monocytes % (A) 7 %; Neutrophils # (A) 4.5 k/uL (1.3-7.7); Neutrophils % (A) 71 %; Platelet Count 177 k/uL (150-450); RBC 3.68 m/uL (3.80-5.40); RDW 12.8 % (11.5-15.5); WBC 6.4 k/uL (3.8-10.6)
[2018-02-20 12:04] LABS: Albumin 3.9 g/dL (3.5-5.0); Calcium 10.1 mg/dL (8.4-10.2); Potassium 5.2 mmol/L (3.5-5.1); Total Bilirubin 0.4 mg/dL (0.2-1.3); Total Protein 6.8 g/dL (6.3-8.2)
--- NOTE | 2018-02-20 12:33 | CT ---
EXAMINATION TYPE: CT abdomen pelvis wo con DATE OF EXAM: 02/20/2018 COMPARISON: Previous study dated 08/24/2017. HISTORY: Rt flank pain CT DLP: 346.1 mGycm Automated exposure control for dose reduction was used. FINDINGS: There is minimal dependent atelectasis within the dependent portions of the lungs. There is no pleural or pericardial fluid. The heart is mildly enlarged. There is a small hiatal hernia. Within the abdomen, the liver, spleen and gallbladder are normal. There is a stable 11 mm left adrenal nodule. Right adrenal gland is normal. There is a stable, 8mm calculus in the posterior lower pole calyx of the left kidney. There is a smal ler 2.6 mm calculus in the posterior middle pole calyx of the left kidney. There is a 4 mm calculus in one of the lower pole calyces of the right kidney. There is a 3.4 mm calc ulus in the proximal right ureter this is causing moderate hydronephrosis of the right kidney and mod erate stranding about the right kidney. Limited views of the pancreas are normal. There is moderate atheromatous calcification of the visualized arterial tree. There is no significant retroperitoneal, iliac or inguinal adenopathy. There are multiple phleboliths within the pelvis. The bladder is unremarkable. The uterus and ovaries are not visualized. There is uncomplicated diverticulosis of the sigmoid colon. I do not see radiographic evidence of div erticulitis. The appendix is not visualized with certainty. Small bowel loops are normal in caliber. There is no free fluid and no free air. There is degenerative disc disease, facet arthropathy and hypertrophic spondylosis within the spine. IMPRESSION: 1. 3.4 MM CALCULUS IN THE PROXIMAL RIGHT URETER CAUSING MODERATE RIGHT-SIDED HYDRONEPHROSIS. 2. ADDITIONAL NONOBSTRUCTING BILATERAL NEPHROLITHIASIS. 3. SMALL HIATAL HERNIA. 4. MILD CARDIOMEGALY. 5. STABLE, 11 MM LEFT ADRENAL NODULE. 6. UNCOMPLICATED DIVERTICULOSIS OF THE SIGMOID COLON. 7. DEGENERATIVE CHANGES WITHIN THE SPINE.
[2018-02-20] MEDS ORDERED: Acetaminophen-Codeine 300-30mg TAB PO STA (12:58)
[2018-02-20] MEDS ORDERED: ACET/COD 300 MG/30 MG STARTER PACK 6 TAB BTL PO STA (12:58)
[2018-02-20] MEDS ORDERED: TAMSULOSIN 0.4 MG CAP.ER.24H PO STA (12:58)
[2018-02-20 13:04] LABS: Appearance,Urine Cloudy (Clear); Bilirubin,Urine Negative (Negative); Blood,Urine Moderate (Negative); Color,Urine Yellow; Glucose,Urine (UA) Negative (Negative); Ketones,Urine Negative (Negative); Leukocyte Esterase,Urine Negative (Negative); Mucus,Urine Rare /hpf; Nitrite,Urine Negative (Negative); Protein,Urine Trace (Negative); RBC,Urine 139 /hpf (0-5); Specific Gravity,Urine 1.012 (1.001-1.035); Squamous Epithelial Cell,Urine 5 /hpf (0-4); Urobilinogen,Urine <2.0 mg/dL (<2.0); WBC,Urine 1 /hpf (0-5)
[2018-02-20 13:23] VITALS: BP 174/69; PULSE 71; RESP 18
== END 2018-02-20 13:43 | disposition home or self-care (01) ==
LOC: EC 10:10
DX: N13.2 Hydronephrosis with renal and ureteral calculous obstruction (principal); I10 Essential (primary) hypertension; G47.30 Sleep apnea, unspecified; F17.200 Nicotine dependence, unspecified, uncomplicated; Z90.89 Acquired absence of other organs; Z90.710 Acquired absence of both cervix and uterus; Z79.899 Other long term (current) drug therapy
CPT/HCPCS: 36415; 80053; 82150; 83690; 85025; 81001; 87086; 74176; 99284; 96374; 96361 ×2; J1885

== ENCOUNTER → 2018-04-05 | Outpatient (CLI) | payer MEDICARE ==
--- NOTE | 2018-04-05 15:29 | US ---
EXAMINATION TYPE: US kidneys/renal and bladder DATE OF EXAM: 04/05/2018 COMPARISON: NONE CLINICAL HISTORY: N13.2 Hydronephrosis w/renal and ureteral stone ob. pt recently passed a kidney sto ne EXAM MEASUREMENTS: Right Kidney: 9.0 x 4.5 x 3.9 cm Left Kidney: 10.0 x 4.6 x 3.9 cm Right Kidney: couple cortical cysts, largest at upper pole measuring 1.4cm, 4mm calc at the lower jennifer e, possible 7mm calc at the upper pole, mild hydronephrosis Left Kidney: some limitations, 8mm calc at the mid pole, 9mm calc at the lower pole Bladder: wnl Bilateral Jets seen: yes There is chronic medical renal disease bilaterally as there is diminished cortical medullary differen tiation bilaterally and cortical renal thinning. IMPRESSION: 1. Bilateral nephrolithiasis without hydronephrosis of either kidney. 2. Multiple small right renal cysts that appear uncomplicated (Bosniak type I). 3. Sonographic sequela of medical renal disease.
== END | disposition home or self-care (01) ==
LOC: RADUSWWP 13:29
PROVIDERS: ATTEND Urology
DX: N20.0 Calculus of kidney (principal); N28.1 Cyst of kidney, acquired
CPT/HCPCS: 76770

== ENCOUNTER → 2018-05-20 | Outpatient (CLI) | payer MEDICARE ==
--- NOTE | 2018-05-20 13:20 | US ---
EXAMINATION TYPE: US kidneys/renal and bladder DATE OF EXAM: 05/20/2018 COMPARISON: 04/05/2018 CLINICAL HISTORY: N28.1 RENAL CYST. EXAM MEASUREMENTS: Right Kidney: 9.2 x 4.6 x 4.7 cm Left Kidney: 10.4 x 5.3 x 4.0 cm Post Void Residual Volume: Bladder not full enough to evaluate. Right Kidney: upper pole cyst = 1.4 x 1.1 x 1.3 cm, mid pole cyst = 1 cm, lower pole calculus = 0.7 c m. Dilated renal pelvis = 1.5 cm. Thinned renal cortex. Left Kidney: Lower pole calculus = 1.3 x 1.2, Mid pole calculus = 0.8 x 0.5 cm. Mid pole hypoechoic a carlton = 0.8 x 0.7 x 0.7 cm. Without increased through transmission. This was not seen definitively on t he prior of 04/05/2018. Thinned renal cortex. No hydronephrosis seen. Bladder: wnl Bilateral Jets seen: Yes Normal Post Void Residual: Not evaluated d/t bladder not being fully distended. There is no evidence for hydronephrosis at this point in time. The urinary bladder is anechoic but in completely distended. Bilateral ureteral jets are seen. IMPRESSION: Right renal cysts, bilateral sequela of medical renal disease, and bilateral nonobstructing nephrolit hiasis. Subcentimeter left renal lesion is too small to accurately characterize but does not definiti vely represent a benign cyst and short-term follow-up could be considered as this was not seen on the prior of 04/05/2018.
== END | disposition home or self-care (01) ==
LOC: RADUSWWP 12:16
PROVIDERS: ATTEND Urology
DX: N28.1 Cyst of kidney, acquired (principal); N20.0 Calculus of kidney
CPT/HCPCS: 76770

== ENCOUNTER 2019-08-15 21:57 | Inpatient (IN) | payer MEDICARE ==
[2019-08-15] MEDS ORDERED: SODIUM CHLORIDE 0.9% 500 ML 500 ML IV STA (22:49)
[2019-08-15 23:09] LABS: Basophils % (A) 0 %; Eosinophils # (A) 0.3 k/uL (0-0.7); Eosinophils % (A) 4 %; HCT 41.9 % (34.0-46.0); HGB 13.7 gm/dL (11.4-16.0); Lymphocytes # (A) 1.2 k/uL (1.0-4.8); Lymphocytes % (A) 20 %; MCH 33.3 pg (25.0-35.0); MCHC 32.6 g/dL (31.0-37.0); Macrocytosis Slight; Mean Platelet Volume 9.3; Monocytes # (A) 0.3 k/uL (0-1.0); Monocytes % (A) 5 %; Neutrophils % (A) 68 %; Platelet Count 144 k/uL (150-450); RBC 4.11 m/uL (3.80-5.40); RDW 13.7 % (11.5-15.5); WBC 5.9 k/uL (3.8-10.6)
[2019-08-15 23:14] LABS: Potassium 3.5 mmol/L (3.5-5.1)
[2019-08-15 23:15] LABS: Albumin 3.9 g/dL (3.5-5.0); Calcium 9.7 mg/dL (8.4-10.2); Total Bilirubin 0.5 mg/dL (0.2-1.3); Total Protein 6.6 g/dL (6.3-8.2)
--- NOTE | 2019-08-16 00:59 | CT ---
EXAMINATION TYPE: CT abdomen pelvis w con DATE OF EXAM: 08/16/2019 COMPARISON: 02/20/2018 HISTORY: Mid to upper abd pain, vomiting CT DLP: 730.40 mGycm Automated exposure control for dose reduction was used. CONTRAST: Performed with IV Contrast, patient injected with 80 mL of Isovue 300. Multiple axial sections were obtained from the diaphragm to the floor the pelvis with intravenous con trast. There is some interstitial infiltrates in the lower lobes bilaterally. There is no pericardial effusion. Heart size is fairly normal. There is no pleural effusion. There is small hiatal hernia. Stomach is intact. Liver shows no focal defect. Gallbladder has normal size. Spleen is intact. There is no pancreatic mass. There is no adrenal mass. Kidneys show satisfactory contrast opacification. There is no hydronephrosi s. Delayed images show normal renal excretion. There is 1 cm calculus lower pole left kidney. There i s 7 mm calculus lower pole right kidney. There are multiple small renal cortical cysts that measure u p to 1 cm. There is no retroperitoneal adenopathy. Abdominal aorta is atheromatous. Ureters are not d ilated. Bladder distends smoothly. There is no inguinal hernia. There is small amount of free fluid i n the pelvis on the right side. There is no mesenteric edema. There is no bowel obstruction. There are multiple air bubbles in the p drake on the right side that could be some free intraperitoneal air. There is some wall thickening of the proximal sigmoid colon. There are probably some sigmoid diverticula. There is small amount of fr ee fluid in the right paracolic gutter. There is minimal fat stranding around the descending colon an d proximal sigmoid colon. Lumbar vertebra have normal alignment. There is degenerative disc space narrowing in the lumbar spine . There is no compression fracture. Bony pelvis is intact. IMPRESSION: Localized free air in the pelvis with inflammatory changes and mild fluid in the pelvis on the right side and right paracolic gutter. This could relate to localized diverticulitis or diverticular perfor ation. Minimal changes of colitis involving the lower descending colon and proximal sigmoid colon. Ex am findings were discussed with ER physician at 1:00 AM.
[2019-08-16] MEDS ORDERED: PIPERACILLIN-TAZOBACTAM 3.375 GM in SODIUM CHLORIDE 0.9% 100 ML IVPB ONE (01:00)
[2019-08-16 01:02] LABS: Appearance,Urine Clear (Clear); Bilirubin,Urine Negative (Negative); Blood,Urine Negative (Negative); Color,Urine Yellow; Glucose,Urine (UA) Negative (Negative); Ketones,Urine Negative (Negative); Leukocyte Esterase,Urine Negative (Negative); Nitrite,Urine Negative (Negative); PH, Urine 5.5 (5.0-8.0); Protein,Urine Trace (Negative); Specific Gravity,Urine 1.023 (1.001-1.035); Urobilinogen,Urine <2.0 mg/dL (<2.0)
[2019-08-16] MEDS ORDERED: AMPICILLIN-SULBACTAM 3 GM in SODIUM CHLORIDE 0.9% 100 ML IVPB STA (01:03)
[2019-08-16] MEDS ORDERED: SODIUM CHLORIDE 0.9% 1,000 ML IV ONE (01:28)
[2019-08-16] MEDS ORDERED: MORPHINE SULFATE 4 MG/ML SYRINGE IV STA (01:35)
--- NOTE | 2019-08-16 01:35 | ED ---
General Adult HPI - General Chief complaint: Abdominal Pain Stated complaint: Abdominal pain Time Seen by Provider: 08/15/19 22:01 Source: patient, EMS, RN notes reviewed, old records reviewed Mode of arrival: EMS Limitations: no limitations - History of Present Illness Initial comments: 88-year-old female patient presents ED fatigue and abdominal pain. Patient reports that pain began around noon. She describes it as generalized nonlocalized reports that she had approximately 2 episodes of nausea and vomiting. Patient states that she does feel somewhat better upon entering the ER. She was administered Toradol and Zofran by EMS. Systemic: Pt denies fatigue, fever/chills, rash. Pt denies weakness, night sweats, weight loss. Neuro: Pt denies headache, visual disturbances, syncope or pre-syncope. HEENT: Pt denies ocular discharge or irritation, otalgia, rhinorrhea, pharyngitis or notable lymphadenopathy. Cardiopulmonary: Pt denies chest pain, SOB, heart palpitations, dyspnea on exertion. : Pt denies dysuria, burning w/ urination, frequency/urgency. Denies new onset urinary or bowel incontinence. MSK: Pt denies myalgia, loss of strength or function in extremities. Neuro: Pt denies new onset weakness, paresthesias. - Related Data Home Medications Medication Instructions Recorded Confirmed Cholecalciferol [Vitamin D3 (25 2,000 unit PO DAILY 08/24/17 08/15/19 Mcg = 1000 Iu)] Acetaminophen/Diphenhydramine 1 tab PO HS 08/15/19 08/15/19 [Tylenol Pm Ex-Strength Caplet] HYDROcodone/APAP 5-325MG [[place] 1 tab PO BID PRN 08/15/19 08/15/19 5-325] Ketoconazole 2% Cream [Nizoral 2%] 1 applic TOPICAL BID 08/15/19 08/15/19 Ramipril 2.5 mg PO DAILY 08/15/19 08/15/19 clonazePAM [KlonoPIN] 1 mg PO HS 08/15/19 08/15/19 rOPINIRole HCL [Requip] 0.375 mg PO HS 08/15/19 08/15/19 Previous Rx's Medication Instructions Recorded Acetaminophen Tab [Tylenol] 650 mg PO Q6HR PRN tab 08/27/17 Allergies Allergy/AdvReac Type Severity Reaction Status Date / Time No Known Allergies Allergy Verified 08/15/19 22:57 Review of Systems ROS Statement: Those systems with pertinent positive or pertinent negative responses have been documented in the HPI. ROS Other: All systems not noted in ROS Statement are negative. Past Medical History Past Medical History: Hyperlipidemia, Hypertension, Osteoarthritis (OA), Sleep Apnea/CPAP/BIPAP, Thyroid Disorder Additional Past Medical History / Comment(s): used to take thyroid meds, rls, arthritis in hands, past gerd, past uterine fibroids History of Any Multi-Drug Resistant Organisms: ESBL Date of last positivie culture/infection: 08/24/17 MDRO Source:: URINE Past Surgical History: Adenoidectomy, Appendectomy, Hysterectomy, Tonsillectomy Additional Past Surgical History / Comment(s): hx of "cross eyed"-sx to correct. cataracts-lens implants, eye lift Past Anesthesia/Blood Transfusion Reactions: No Reported Reaction Past Psychological History: Panic Disorder, PTSD Smoking Status: Current every day smoker Past Alcohol Use History: Daily Past Drug Use History: None Reported - Past Family History Father Additional Family Medical History / Comment(s): cardiac problems Mother Additional Family Medical History / Comment(s): mom fom old age General Exam - General Exam Comments Initial Comments: Constitutional: NAD, AOX3, Pt has pleasant affect. HEENT: NC/AT, trachea midline, neck supple, no lymphadenopathy. Posterior pharynx non erythematous, without exudates. External ears appear normal, without discharge. Mucous membranes moist. Eyes PERRLA, EOM intact. There is no scleral icterus. No pallor noted. Cardiopulmonary: RRR, no murmurs, rubs or gallops, no JVD noted. Lungs CTAB in anterior and posterior ibarra. No peripheral edema. Abdominal exam: Abdomen soft and non-distended. Generalized abdominal tenderness. Nonlocalized. No hepatosplenomegaly. No ecchymosis Neuro: CN II-XII grossly intact. No nuchal rigidity. No raccon eyes, no gao sign, no hemotympanum. No cervical spinal tenderness. MSK: No posterior calf tenderness bilaterally, homans sign negative bilaterally. Posterior tibialis and radial pulse +2 bilaterally. Sensation intact in upper and lower extremities. Full active ROM in upper and lower extremities, 5/5 stregnth. Limitations: no limitations Course Vital Signs 08/15/19 08/15/19 08/16/19 21:59 23:30 01:00 Temperature 97.4 F L 97.9 F Pulse Rate 93 92 Respiratory 18 17 Rate Blood Pressure 140/88 153/92 163/95 O2 Sat by Pulse 99 97 98 Oximetry Medical Decision Making - Medical Decision Making 88-year-old female patient presents ED fatigue and abdominal pain. Patient reports that pain began around noon. She describes it as generalized nonlocalized reports that she had approximately 2 episodes of nausea and vomiting. Patient states that she does feel somewhat better upon entering the ER. She was administered Toradol and Zofran by EMS. Pt VSS, afebrile. Physical exam displayed: Abdomen soft and non-distended. Generalized abdominal tenderness. Investigations are pain in or were not impressive. 4 negative. UA negative. EKG is nonischemic. Lactic acid 1.9. CT and pelvis with contrast with localized free air in the pelvis of inflammatory changes mild fluid in the pelvis on the right side and right pericolic gutter. This could relate to localized diverticulitis or diverticular perforation. Patient initiated on Unasyn, made nothing by mouth, placed on maintenance fluids, was admitted for surgical evaluation. Case discussed with Dr. Rocha. - Lab Data Result diagrams: 08/15/19 22:15 08/15/19 22:15 Lab Results 08/15/19 08/15/19 08/15/19 Range/Units 22:15 22:15 22:15 WBC 5.9 (3.8-10.6) k/uL RBC 4.11 (3.80-5.40) m/uL Hgb 13.7 (11.4-16.0) gm/dL Hct 41.9 (34.0-46.0) % MCV 102.0 H (80.0-100.0) fL MCH 33.3 (25.0-35.0) pg MCHC 32.6 (31.0-37.0) g/dL RDW 13.7 (11.5-15.5) % Plt Count 144 L (150-450) k/uL Neutrophils % 68 % Lymphocytes % 20 % Monocytes % 5 % Eosinophils % 4 % Basophils % 0 % Neutrophils # 4.0 (1.3-7.7) k/uL Lymphocytes # 1.2 (1.0-4.8) k/uL Monocytes # 0.3 (0-1.0) k/uL Eosinophils # 0.3 (0-0.7) k/uL Basophils # 0.0 (0-0.2) k/uL Macrocytosis Slight Sodium 137 (137-145) mmol/L Potassium 3.5 (3.5-5.1) mmol/L Chloride 106 (98-107) mmol/L Carbon Dioxide 22 (22-30) mmol/L Anion Gap 9 mmol/L BUN 25 H (7-17) mg/dL Creatinine 0.98 (0.52-1.04) mg/dL Est GFR (CKD-EPI)AfAm 60 (>60 ml/min/1.73 sqM) Est GFR (CKD-EPI)NonAf 52 (>60 ml/min/1.73 sqM) Glucose 121 H (74-99) mg/dL Plasma Lactic Acid Don 1.9 (0.7-2.0) mmol/L Calcium 9.7 (8.4-10.2) mg/dL Total Bilirubin 0.5 (0.2-1.3) mg/dL AST 24 (14-36) U/L ALT 12 (4-34) U/L Alkaline Phosphatase 92 (38-126) U/L Troponin I (0.000-0.034) ng/mL Total Protein 6.6 (6.3-8.2) g/dL Albumin 3.9 (3.5-5.0) g/dL Lipase 133 (23-300) U/L Urine Color Urine Appearance (Clear) Urine pH (5.0-8.0) Ur Specific [place] (1.001-1.035) Urine Protein (Negative) Urine Glucose (UA) (Negative) Urine Ketones (Negative) Urine Blood (Negative) Urine Nitrite (Negative) Urine Bilirubin (Negative) Urine Urobilinogen (<2.0) mg/dL Ur Leukocyte Esterase (Negative) 08/15/19 08/16/19 Range/Units 22:15 00:52 WBC (3.8-10.6) k/uL RBC (3.80-5.40) m/uL Hgb (11.4-16.0) gm/dL Hct (34.0-46.0) % MCV (80.0-100.0) fL MCH (25.0-35.0) pg MCHC (31.0-37.0) g/dL RDW (11.5-15.5) % Plt Count (150-450) k/uL Neutrophils % % Lymphocytes % % Monocytes % % Eosinophils % % Basophils % % Neutrophils # (1.3-7.7) k/uL Lymphocytes # (1.0-4.8) k/uL Monocytes # (0-1.0) k/uL Eosinophils # (0-0.7) k/uL Basophils # (0-0.2) k/uL Macrocytosis Sodium (137-145) mmol/L Potassium (3.5-5.1) mmol/L Chloride (98-107) mmol/L Carbon Dioxide (22-30) mmol/L Anion Gap mmol/L BUN (7-17) mg/dL Creatinine (0.52-1.04) mg/dL Est GFR (CKD-EPI)AfAm (>60 ml/min/1.73 sqM) Est GFR (CKD-EPI)NonAf (>60 ml/min/1.73 sqM) Glucose (74-99) mg/dL Plasma Lactic Acid Don (0.7-2.0) mmol/L Calcium (8.4-10.2) mg/dL Total Bilirubin (0.2-1.3) mg/dL AST (14-36) U/L ALT (4-34) U/L Alkaline Phosphatase (38-126) U/L Troponin I <0.012 (0.000-0.034) ng/mL Total Protein (6.3-8.2) g/dL Albumin (3.5-5.0) g/dL Lipase (23-300) U/L Urine Color Yellow Urine Appearance Clear (Clear) Urine pH 5.5 (5.0-8.0) Ur Specific [place] 1.023 (1.001-1.035) Urine Protein Trace H (Negative) Urine Glucose (UA) Negative (Negative) Urine Ketones Negative (Negative) Urine Blood Negative (Negative) Urine Nitrite Negative (Negative) Urine Bilirubin Negative (Negative) Urine Urobilinogen <2.0 (<2.0) mg/dL Ur Leukocyte Esterase Negative (Negative) - EKG Data -: EKG Interpreted by Me (and Dr. Rocha) EKG Comments: Ventricular rate 91, when necessary for 192, QRS 68, QT/QTC 354/435. Normal sinus rhythm. Voltage criteria for left ventricular hypertrophy. Nonspecific T-wave abnormality. No concern for acute ischemic this time. Disposition Clinical Impression: Diverticulitis of intestine with perforation Disposition: ADMITTED IP TO THIS HOSP Condition: Serious Is patient prescribed a controlled substance at d/c from ED?: No Referrals: Yung Vázquez MD [Primary Care Provider] - 1-2 days
[2019-08-16] MEDS ORDERED: ACETAMINOPHEN TAB 325 MG TAB PO PRN (01:49)
[2019-08-16] MEDS ORDERED: NALOXONE 0.4 MG/ML 1 ML VIAL IV PRN (01:49)
[2019-08-16] MEDS ORDERED: MORPHINE SULFATE 4 MG/ML SYRINGE IV PRN (01:49)
[2019-08-16] MEDS: SODIUM CHLORIDE 0.9% 1,000 ML IV SCH ×2 (02:10→23:57)
[2019-08-16] MEDS ORDERED: AMPICILLIN-SULBACTAM 3 GM in SODIUM CHLORIDE 0.9% 100 ML IVPB SCH (09:00)
[2019-08-16] MEDS: HEPARIN SODIUM,PORCINE 5,000 UNIT/ML 1 ML VIAL SQ SCH ×2 (09:31→20:19)
[2019-08-16] MEDS: PANTOPRAZOLE 40 MG/10 ML VIAL IVP SCH (09:31)
[2019-08-16] MEDS: PIPERACILLIN-TAZOBACTAM 3.375 GM in SODIUM CHLORIDE 0.9% 100 ML IVPB SCH ×2 (09:31→17:06)
--- NOTE | 2019-08-16 10:10 | P.CONS ---
History of Present Illness - Reason for Consult Consult date: 08/16/19 HTN Requesting physician: Estrada Ward - Chief Complaint abdominal pain - History of Present Illness Patient is an 88-year-old female with past medical history of hypertension, GERD with prior duodenal ulcer, restless leg syndrome, dyslipidemia, and hypothyroidism who presented to the emergency department with complaints of abdominal pain. In the ER she underwent extensive evaluation. Her vital signs within normal limits and laboratory analysis was unremarkable. She underwent a CT abdomen and pelvis which showed localized free air in the pelvis with inflammatory changes and mild fluid in the pelvis on the right side and paracolic gutter. There was concern for possible ruptured diverticulitis. She was started on IV antibiotics and admitted to Dr. Ward. We were consulted for medical management. Patient seen and examined at bedside. She reports that for the last 2 weeks she's been having some abdominal pain that has been intermittent. She didn't pay much attention to it as her right knee have been more bothersome to her. She noticed that the pain was worse with straining to have a bowel movement. She denied any nausea, vomiting, diarrhea, or constipation. She has not had any changes in appetite. She's not had any recent weight loss. She reports that approximately 2 weeks ago she fell when trying to get off of the toilet. She denies any syncope or presyncope but states that her cane slipped out from under her. She struck her head and knee on the bathtub and bathroom floor. She reports that she had quite a large amount of bleeding from her head but did not present to the emergency department if she did not want them to shave her head and put in stitches. Since that point in time she has been having rather significant right elbow pain, and increase in her chronic right knee pain. She denies any headache or visual changes. She reports that she didn ambulate with a walker for approximately 3 days after the fall but has since gone back to her cane. Review of Systems Pertinent positives and negatives as discussed in HPI, a complete review of systems was performed and all other systems are negative. Past Medical History Past Medical History: Hyperlipidemia, Hypertension, Osteoarthritis (OA), Sleep Apnea/CPAP/BIPAP, Thyroid Disorder Additional Past Medical History / Comment(s): rls, arthritis in hands, GERD, gastric ulcer, past uterine fibroids, nephrolithiasis History of Any Multi-Drug Resistant Organisms: ESBL Year Discovered:: 08/24/17 MDRO Source:: URINE Past Surgical History: Adenoidectomy, Appendectomy, Hysterectomy, Tonsillectomy Additional Past Surgical History / Comment(s): Strabismus correction. cataracts- lens implants, blepharoplasty, lithotripsy Past Anesthesia/Blood Transfusion Reactions: No Reported Reaction Past Psychological History: Panic Disorder, PTSD Additional Psychological History / Comment(s): pt is . lives alone in single level home. has life alert. uses cane when up. has a cleaning service. drives. Smoking Status: Current every day smoker Past Alcohol Use History: Daily Additional Past Alcohol Use History / Comment(s): started smoking at age 21, currently smokes 2-3 cig/day and has 1-2 coctails at night Past Drug Use History: None Reported Additional History: Drinks one mixed drink nightly. - Past Family History Father Additional Family Medical History / Comment(s): cardiac problems Mother Additional Family Medical History / Comment(s): mom fom old age Medications and Allergies Home Medications Medication Instructions Recorded Confirmed Type Cholecalciferol [Vitamin D3 (25 2,000 unit PO DAILY 08/24/17 08/15/19 History Mcg = 1000 Iu)] Acetaminophen Tab [Tylenol] 650 mg PO Q6HR PRN tab 08/27/17 08/15/19 Rx Acetaminophen/Diphenhydramine 1 tab PO HS 08/15/19 08/15/19 History [Tylenol Pm Ex-Strength Caplet] HYDROcodone/APAP 5-325MG [[place] 1 tab PO BID PRN 08/15/19 08/15/19 History 5-325] Ketoconazole 2% Cream [Nizoral 2%] 1 applic TOPICAL BID 08/15/19 08/15/19 History Ramipril 2.5 mg PO DAILY 08/15/19 08/15/19 History clonazePAM [KlonoPIN] 1 mg PO HS 08/15/19 08/15/19 History rOPINIRole HCL [Requip] 0.375 mg PO HS 08/15/19 08/15/19 History Allergies Allergy/AdvReac Type Severity Reaction Status Date / Time No Known Allergies Allergy Verified 08/15/19 22:57 Physical Exam Osteopathic Statement: *. No significant issues noted on an osteopathic structural exam other than those noted in the History and Physical/Consult. Vitals: Vital Signs Temp Pulse Pulse Resp BP BP Pulse Ox 08/16/19 05:25 97.4 F L 76 18 155/66 99 08/16/19 02:40 18 08/16/19 02:33 97.8 F 100 18 187/95 96 08/16/19 02:05 98.3 F 90 18 158/85 99 08/16/19 01:00 97.9 F 92 17 163/95 98 08/15/19 23:30 153/92 97 08/15/19 21:59 97.4 F L 93 18 140/88 99 Intake and Output 08/15/19 08/16/19 08/16/19 22:59 06:59 14:59 Intake Total 1300 Balance 1300 Intake: Intake, IV Titration 1300 Amount Sodium Chloride 0.9% 1, 300 000 ml @ 75 mls/hr IV . [id number] [facility] Rx#:[id number] Sodium Chloride 0.9% 1, 1000 000 ml @ 999 mls/hr IV . Q1H1M ONE Rx#:[id number] Other: # Voids 1 Weight 58.06 kg 58.06 kg General: non toxic, no distress, appears at stated age, normal weight Derm: 1 cm laceration right scalp appears to be healing and can not longer be sutured, no unusual rashes/lesions no unusual ecchymoses, warm, dry Head: atraumatic, normocephalic, symmetric Eyes: EOMI, no lid lag, anicteric sclera, pupils equal round reactive to light ENT: Nose and ears atraumatic, no thrush, no pharyngeal erythema Neck: No thyromegaly, no cervical lymphadenopathy, trachea midline, supple Mouth: no lip lesion, mucus membranes moist Cardiovascular: S1S2 reg, no murmur, positive posterior tibial pulse bilateral, no edema, capillary refill less than 2 seconds Lungs:Decrease bs bilateral, no rhonchi, no rales , no accessory muscle use Abdominal: soft, +tender to palpation LUQ and LLQ, no guarding, no appreciable organomegaly, normal bowel sounds Ext: no gross muscle atrophy, muscle strength 5 out of 5 in all 4 extremities grossly, no contractures, + TTP right for arm just distal to the elbow, + TTP medical area right knee joint Neuro: + tremor and shaking, CN II-XI grossly intact, light touch intact all 4 extremities, finger to nose within normal limits, Psych: Alert, oriented, upset and tearful Results CBC & Chem 7: 08/15/19 22:15 08/15/19 22:15 Labs: Abnormal Lab Results - Last 24 Hours (Table) 08/15/19 08/15/19 08/16/19 Range/Units 22:15 22:15 00:52 MCV 102.0 H (80.0-100.0) fL Plt Count 144 L (150-450) k/uL BUN 25 H (7-17) mg/dL Glucose 121 H (74-99) mg/dL Urine Protein Trace H (Negative) CT scan - abdomen: report reviewed CT scan - pelvis: report reviewed Assessment and Plan Assessment: Fall with right elbow and knee pain - Check elbow and knee x-ray on right - pain control - walker - pt/ot eval HTN, accerelated - Resume ACEI - Follow BP Lacteration right scalp - Bacitracin daily Diverticulitis with possible microperforation - Z0syn - IVF - NPO - Pain control GERD - PPI Tobacco abuse Daily ETOH use HLD Thank you for allowing us to participate in the care of this pleasant patient. Do not hesitate to contact us with questions. Someone can be reached from the [facility] hospitalist group all hours of the day at [phone] or via perfect serve.
[2019-08-16] MEDS ORDERED: BACITRACIN OINT 1 EACH PACKET TOPICAL SCH (10:15)
[2019-08-16] MEDS ORDERED: LORazepam 2 MG/ML INJ IV PRN (10:21)
--- NOTE | 2019-08-16 11:02 | XR ---
EXAMINATION TYPE: XR knee complete RT DATE OF EXAM: 08/16/2019 COMPARISON: NONE HISTORY: Pain TECHNIQUE: Three views are submitted. FINDINGS: Near complete loss of joint space along the medial compartment with hypertrophic spurring. Suprapatel lar bursal fluid collection noted. Osseous structures are intact. No acute fracture seen. IMPRESSION: 1. No acute fracture or dislocation. 2. Suprapatellar bursal fluid collection with severe osteoarthritis.
--- NOTE | 2019-08-16 11:05 | XR ---
EXAMINATION TYPE: XR elbow complete RT DATE OF EXAM: 08/16/2019 COMPARISON: NONE HISTORY: Pain FINDINGS: Three views of the elbow demonstrate no pathologic joint effusion. There is slight deformity of the p roximal radius. IMPRESSION: 1. Correlate with point tenderness to exclude a hairline fracture of the proximal radius.
[2019-08-16] MEDS: BACITRACIN 500 UNIT/GM OINT 28.4 GM TUBE TOPICAL SCH ×3 (11:13→20:22)
--- NOTE | 2019-08-16 14:16 | P.GSHP ---
History of Present Illness H&P Date: 08/16/19 CHIEF COMPLAINT: Abdominal pain HISTORY OF PRESENT ILLNESS: 88-year-old female who presented to the emergency room with abdominal pain. Patient examined at the bedside with Dr. Ward. Patient reports she has history of duodenal ulcers. She states she has been having pain in the left side of her abdomen for the last 2-3 weeks and thought may be secondary to another ulcer. She also reports having some pain when she had a bowel movement. PAST MEDICAL HISTORY: See list. PAST SURGICAL HISTORY: See list. SOCIAL HISTORY: No illicit drug use. Reports daily alcohol use. REVIEW OF SYSTEMS: CONSTITUTIONAL: Denies fever or chills. Reports recent fall. HEENT: Denies blurred vision, vision changes, or eye pain. Denies hemoptysis CARDIOVASCULAR: Denies chest pain or pressure. RESPIRATORY: No shortness of breath. GASTROINTESTINAL: Refer to [facility] for pertinent findings HEMATOLOGIC: Denies bleeding disorders. GENITOURINARY: Denies any blood in urine. SKIN: Denies pruitis. Denies rash. PHYSICAL EXAM: VITAL SIGNS: Reviewed. GENERAL: Well-developed in no acute distress. HEENT: No sclera icterus. Extraocular movements grossly intact. Moist buccal mucosa. Head is atraumatic, normocephalic. ABDOMEN: Soft. Nondistended. Tenderness with palpation of all four quadrants, left side worse than right. NEUROLOGIC: Alert and oriented. Cranial nerves II through XII grossly intact. LABORATORY DATA: WBC 5.9. Hemoglobin 13.7. Platelet count 144. IMAGING: CT abdomen pelvis: Localized free air in the pelvis with inflammatory changes and mild fluid in the pelvis on the right side and right pericolic gutter. This could relate to localize diverticulitis or diverticular perforation. ASSESSMENT: 1. Diverticulitis with localized perforation PLAN: -NPO except ice chips and popsicles -Continue antibiotics -No surgical intervention recommended at this time -Consult Dr. Cao for medical management Nurse practitioner note has been reviewed by physician. Signing provider agrees with the documented findings, assessment, and plan of care. Past Medical History Past Medical History: Hyperlipidemia, Hypertension, Osteoarthritis (OA), Sleep Apnea/CPAP/BIPAP, Thyroid Disorder Additional Past Medical History / Comment(s): rls, arthritis in hands, past gerd, past uterine fibroids History of Any Multi-Drug Resistant Organisms: ESBL Date of last positivie culture/infection: 08/24/17 MDRO Source:: URINE Past Surgical History: Adenoidectomy, Appendectomy, Hysterectomy, Tonsillectomy Additional Past Surgical History / Comment(s): hx of "cross eyed"-sx to correct. cataracts-lens implants, eye lift Past Anesthesia/Blood Transfusion Reactions: No Reported Reaction Past Psychological History: Panic Disorder, PTSD Additional Psychological History / Comment(s): pt is . lives alone in single level home. has life alert. uses cane when up. has a cleaning service. drives. Smoking Status: Current every day smoker Past Alcohol Use History: Daily Additional Past Alcohol Use History / Comment(s): started smoking at age 21, currently smokes 2-3 cig/day and has 1-2 coctails at night Past Drug Use History: None Reported - Past Family History Father Additional Family Medical History / Comment(s): cardiac problems Mother Additional Family Medical History / Comment(s): mom fom old age Medications and Allergies Home Medications Medication Instructions Recorded Confirmed Type Cholecalciferol [Vitamin D3 (25 2,000 unit PO DAILY 08/24/17 08/15/19 History Mcg = 1000 Iu)] Acetaminophen Tab [Tylenol] 650 mg PO Q6HR PRN tab 08/27/17 08/15/19 Rx Acetaminophen/Diphenhydramine 1 tab PO HS 08/15/19 08/15/19 History [Tylenol Pm Ex-Strength Caplet] HYDROcodone/APAP 5-325MG [[place] 1 tab PO BID PRN 08/15/19 08/15/19 History 5-325] Ketoconazole 2% Cream [Nizoral 2%] 1 applic TOPICAL BID 08/15/19 08/15/19 History Ramipril 2.5 mg PO DAILY 08/15/19 08/15/19 History clonazePAM [KlonoPIN] 1 mg PO HS 08/15/19 08/15/19 History rOPINIRole HCL [Requip] 0.375 mg PO HS 08/15/19 08/15/19 History Allergies Allergy/AdvReac Type Severity Reaction Status Date / Time No Known Allergies Allergy Verified 08/15/19 22:57 Surgical - Exam Vital Signs Temp Pulse Resp BP Pulse Ox 97.4 F L 93 18 140/88 99 08/15/19 21:59 08/15/19 21:59 08/15/19 21:59 08/15/19 21:59 08/15/19 21:59 Results - Labs 08/15/19 22:15 08/15/19 22:15 Abnormal Lab Results - Last 24 Hours (Table) 08/15/19 08/15/19 08/16/19 Range/Units 22:15 22:15 00:52 MCV 102.0 H (80.0-100.0) fL Plt Count 144 L (150-450) k/uL BUN 25 H (7-17) mg/dL Glucose 121 H (74-99) mg/dL Urine Protein Trace H (Negative) Diabetes panel 08/15/19 Range/Units 22:15 Sodium 137 (137-145) mmol/L Potassium 3.5 (3.5-5.1) mmol/L Chloride 106 (98-107) mmol/L Carbon Dioxide 22 (22-30) mmol/L BUN 25 H (7-17) mg/dL Creatinine 0.98 (0.52-1.04) mg/dL Glucose 121 H (74-99) mg/dL Calcium 9.7 (8.4-10.2) mg/dL AST 24 (14-36) U/L ALT 12 (4-34) U/L Alkaline Phosphatase 92 (38-126) U/L Total Protein 6.6 (6.3-8.2) g/dL Albumin 3.9 (3.5-5.0) g/dL Calcium panel 08/15/19 Range/Units 22:15 Calcium 9.7 (8.4-10.2) mg/dL Albumin 3.9 (3.5-5.0) g/dL Pituitary panel 08/15/19 Range/Units 22:15 Sodium 137 (137-145) mmol/L Potassium 3.5 (3.5-5.1) mmol/L Chloride 106 (98-107) mmol/L Carbon Dioxide 22 (22-30) mmol/L BUN 25 H (7-17) mg/dL Creatinine 0.98 (0.52-1.04) mg/dL Glucose 121 H (74-99) mg/dL Calcium 9.7 (8.4-10.2) mg/dL Adrenal panel 08/15/19 Range/Units 22:15 Sodium 137 (137-145) mmol/L Potassium 3.5 (3.5-5.1) mmol/L Chloride 106 (98-107) mmol/L Carbon Dioxide 22 (22-30) mmol/L BUN 25 H (7-17) mg/dL Creatinine 0.98 (0.52-1.04) mg/dL Glucose 121 H (74-99) mg/dL Calcium 9.7 (8.4-10.2) mg/dL Total Bilirubin 0.5 (0.2-1.3) mg/dL AST 24 (14-36) U/L ALT 12 (4-34) U/L Alkaline Phosphatase 92 (38-126) U/L Total Protein 6.6 (6.3-8.2) g/dL Albumin 3.9 (3.5-5.0) g/dL
--- NOTE | 2019-08-16 16:09 | P.CNOR ---
History of Present Illness - [facility] Consult date: 08/16/19 Consult reason: joint pain, fracture History of present illness: Patient is an 88-year-old female who was admitted to [facility] early this morning with regards to fatigue and increase in abdominal pain. She is being evaluated by general surgery with regards to diverticulitis. Since being admitted she has mentioned pain involving her right elbow and right knee. apparently she had a fall about 2 weeks ago when getting off the toilet, her cane gave out when she fell onto her right side. She did land on the elbow and her knee along with hitting her head. She was never evaluated in the hospital or doctor's office for this. X-rays of the knee and elbow were done since being in the clamp were in hospital. Images demonstrated no fractures or dislocations of the knee, obvious arthritic changes. X-rays of the elbow did demonstrate a minimally displaced right radial head fracture. Our orthopedic was consulted for this. She was evaluated today at bedside, she is resting comfortably. She notes that the pain in the knee and the elbow has improved. She denies any previous surgery of either extremity. She has had previous steroid injections in the knee, this is been many years since then. She has no other orthopedic complaints at this time. Review of Systems Constitutional: Reports as per HPI Past Medical History Past Medical History: Hyperlipidemia, Hypertension, Osteoarthritis (OA), Sleep Apnea/CPAP/BIPAP, Thyroid Disorder Additional Past Medical History / Comment(s): rls, arthritis in hands, GERD, gastric ulcer, past uterine fibroids, nephrolithiasis History of Any Multi-Drug Resistant Organisms: ESBL Year Discovered:: 08/24/17 MDRO Source:: URINE Past Surgical History: Adenoidectomy, Appendectomy, Hysterectomy, Tonsillectomy Additional Past Surgical History / Comment(s): Strabismus correction. cataracts- lens implants, blepharoplasty, lithotripsy Past Anesthesia/Blood Transfusion Reactions: No Reported Reaction Past Psychological History: Panic Disorder, PTSD Additional Psychological History / Comment(s): pt is . lives alone in single level home. has life alert. uses cane when up. has a cleaning service. drives. Smoking Status: Current every day smoker Past Alcohol Use History: Daily Additional Past Alcohol Use History / Comment(s): started smoking at age 21, currently smokes 2-3 cig/day and has 1-2 coctails at night Past Drug Use History: None Reported - Past Family History Father Additional Family Medical History / Comment(s): cardiac problems Mother Additional Family Medical History / Comment(s): mom fom old age Medications and Allergies Home Medications Medication Instructions Recorded Confirmed Type Cholecalciferol [Vitamin D3 (25 2,000 unit PO DAILY 08/24/17 08/15/19 History Mcg = 1000 Iu)] Acetaminophen Tab [Tylenol] 650 mg PO Q6HR PRN tab 08/27/17 08/15/19 Rx Acetaminophen/Diphenhydramine 1 tab PO HS 08/15/19 08/15/19 History [Tylenol Pm Ex-Strength Caplet] HYDROcodone/APAP 5-325MG [[place] 1 tab PO BID PRN 08/15/19 08/15/19 History 5-325] Ketoconazole 2% Cream [Nizoral 2%] 1 applic TOPICAL BID 08/15/19 08/15/19 History Ramipril 2.5 mg PO DAILY 08/15/19 08/15/19 History clonazePAM [KlonoPIN] 1 mg PO HS 08/15/19 08/15/19 History rOPINIRole HCL [Requip] 0.375 mg PO HS 08/15/19 08/15/19 History Allergies Allergy/AdvReac Type Severity Reaction Status Date / Time No Known Allergies Allergy Verified 08/15/19 22:57 Physical Examination Right upper extremity: No obvious open lesions or sores present, no significant areas of erythema or soft tissue swelling Patient has full range of motion with regards to the elbow, this to include extension and flexion along with supination and pronation She has minimal discomfort over the radial head with palpation also over the olecranon Sensation to light touch throughout the extremity is intact, radial pulses 2+ Right lower extremity: Obvious abrasion with scab noted on the lateral anterior aspect of the knee. No obvious drainage appreciated Minimal effusion present over the knee Patient has full range of motion with extension and flexion She has tenderness with palpation over the medial joint line Calf is soft, no tenderness with palpation Dorsalis pedis pulses 2+, her sensory exam to light touch is intact Results - Labs Labs: Abnormal Lab Results - Last 24 Hours (Table) 08/15/19 08/15/19 08/16/19 Range/Units 22:15 22:15 00:52 MCV 102.0 H (80.0-100.0) fL Plt Count 144 L (150-450) k/uL BUN 25 H (7-17) mg/dL Glucose 121 H (74-99) mg/dL Urine Protein Trace H (Negative) H & H 08/15/19 Range/Units 22:15 Hgb 13.7 (11.4-16.0) gm/dL Hct 41.9 (34.0-46.0) % Result Diagrams: 08/15/19 22:15 08/15/19 22:15 - Diagnostic results Elbow x-ray: report reviewed, image reviewed Knee x-ray: report reviewed, image reviewed Assessment and Plan Plan: Imaging: X-ray reports and images were reviewed of both the right knee and right elbow. The knee x-rays demonstrate no acute fractures or dislocations, evidence of superior medial joint osteoarthritis with joint space narrowing and osteophyte formation. X-rays of the elbow didn't demonstrate a minimally displaced right radial head fracture. There are no other osseous abnormalities noted Assessment: Right knee pain Right knee contusion and abrasion Right knee osteoarthritis Minimally displaced right radial head fracture Status post recent fall Other medical comorbidities Plan: I was able to discuss the case, including the physical exam findings and imaging studies my attending Dr. Crabtree. No orthopedic surgical intervention recommended at this time. Conservative management of both the knee and the elbow at this time. This to include icing and elevating in both extremities. Recommend basic range of motion exercises of the elbow, advised her to avoid heavy lifting. Advise use of the cane at all times with ambulation Basic antibiotic ointment over the knee abrasion Weight-bear as tolerated Plan for follow-up in the outpatient setting in 4 weeks for x-ray evaluation Time with Patient: Less than 30
[2019-08-16] MEDS: LISINOPRIL 10 MG TAB PO SCH (17:04)
[2019-08-16] MEDS: HYDROcodone/APAP 5-325MG 1 EACH TAB PO PRN (17:04)
[2019-08-16] MEDS: clonazePAM 1 MG TAB PO SCH (20:18)
[2019-08-17] MEDS: PIPERACILLIN-TAZOBACTAM 3.375 GM in SODIUM CHLORIDE 0.9% 100 ML IVPB SCH ×3 (01:23→17:37)
[2019-08-17] MEDS: SODIUM CHLORIDE 0.9% 1,000 ML IV SCH (01:23)
[2019-08-17] MEDS: PANTOPRAZOLE 40 MG/10 ML VIAL IVP SCH (07:53)
[2019-08-17] MEDS: LISINOPRIL 10 MG TAB PO SCH (07:54)
[2019-08-17] MEDS: CHOLECALCIFEROL 1,000 UNIT TAB PO SCH (07:54)
[2019-08-17] MEDS: HEPARIN SODIUM,PORCINE 5,000 UNIT/ML 1 ML VIAL SQ SCH ×2 (07:54→21:15)
[2019-08-17] MEDS: BACITRACIN 500 UNIT/GM OINT 28.4 GM TUBE TOPICAL SCH ×3 (07:55→21:16)
[2019-08-17] MEDS: HYDROcodone/APAP 5-325MG 1 EACH TAB PO PRN ×2 (08:08→21:18)
[2019-08-17 08:35] LABS: HCT 37.5 % (34.0-46.0); MCH 33.5 pg (25.0-35.0); MCV 104.7 fL (80.0-100.0); Macrocytosis Slight; Mean Platelet Volume 9.3; Platelet Count 132 k/uL (150-450); RBC 3.58 m/uL (3.80-5.40); RDW 13.7 % (11.5-15.5); WBC 8.9 k/uL (3.8-10.6)
[2019-08-17 08:46] LABS: Calcium 9.2 mg/dL (8.4-10.2); Potassium 3.9 mmol/L (3.5-5.1)
--- NOTE | 2019-08-17 09:23 | P.PN ---
Subjective Progress Note Date: 08/17/19 CHIEF COMPLAINT: Abdominal pain HISTORY OF PRESENT ILLNESS: Patient examined this morning at the bedside. She is tolerating ice chips and popsicles. Denies nausea or vomiting. She reports abdominal pain on the left side of her abdomen while at rest. She reports passing a small amount of flatus this morning. WBC 8.9. Blood pressure stable. Heart rate within normal limits. Temperature this morning 99.3F. PHYSICAL EXAM: VITAL SIGNS: Reviewed. GENERAL: Well-developed in no acute distress. HEENT: No sclera icterus. Extraocular movements grossly intact. Moist buccal mucosa. Head is atraumatic, normocephalic. ABDOMEN: Soft. Nondistended. Tenderness with palpation of all four quadrants, left side worse than right. NEUROLOGIC: Alert and oriented. Cranial nerves II through XII grossly intact. ASSESSMENT: 1. Diverticulitis with localized perforation PLAN: -NPO except ice chips and popsicles due to continued abdominal pain this morning -Continue antibiotics -No surgical intervention recommended at this time -Medical management per Dr. Cao -Patient will be re-evaluated by Dr. Ward today Nurse practitioner note has been reviewed by physician. Signing provider agrees with the documented findings, assessment, and plan of care. Objective - Vital Signs Vital signs: Vital Signs Temp 99.3 F 08/17/19 04:32 Pulse 84 08/17/19 04:32 Resp 18 08/17/19 04:32 BP 128/73 08/17/19 04:32 Pulse Ox 97 08/17/19 04:32 Intake & Output 08/16/19 08/17/19 08/17/19 18:59 06:59 18:59 Intake Total 800 1090 Balance 800 1090 Intake: Intake, IV Titration 800 700 Amount Ampicillin-Sulbactam 3 gm 100 In Sodium Chloride 0.9% 100 ml @ 200 mls/hr IVPB Q8H ELIE Rx#:[id number] Piperacillin-Tazobactam 3 100 100 .375 gm In Sodium Chloride 0.9% 100 ml @ 25 mls/hr IVPB Q8H ELIE Rx#: [id number] Sodium Chloride 0.9% 1, 600 600 000 ml @ 75 mls/hr IV . [id number] ELIE Rx#:[id number] Oral 390 Other: # Voids 3 1 - Labs CBC & Chem 7: 08/17/19 08:04 08/17/19 08:04 Labs: Abnormal Lab Results - Last 24 Hours (Table) 08/17/19 08/17/19 Range/Units 08:04 08:04 RBC 3.58 L (3.80-5.40) m/uL MCV 104.7 H (80.0-100.0) fL Plt Count 132 L (150-450) k/uL Chloride 110 H (98-107) mmol/L BUN 22 H (7-17) mg/dL Microbiology - Last 24 Hours (Table) 08/16/19 01:15 Blood Culture - Preliminary Blood No Growth after 24 hours
--- NOTE | 2019-08-17 16:29 | P.PN ---
Subjective Progress Note Date: 08/17/19 (delayed charting seeing at 0930) Principal diagnosis: abdominal pain Patient is an 88-year-old female with past medical history of hypertension, GERD with prior duodenal ulcer, restless leg syndrome, dyslipidemia, and hypothyroidism who presented to the emergency department with complaints of abdominal pain. In the ER she underwent extensive evaluation. Her vital signs within normal limits and laboratory analysis was unremarkable. She underwent a CT abdomen and pelvis which showed localized free air in the pelvis with inflammatory changes and mild fluid in the pelvis on the right side and paracolic gutter. There was concern for possible ruptured diverticulitis. She was started on IV antibiotics and admitted to Dr. Ward. We were consulted for medical management. She did report a fall 2 weeks ago. She was having arm pain and x-ray was obtained and showed hairline radial head fracture. Ortho consulted and recommended conservative care and limited weight bearing in that arm. Patient will convert from cane in that hand to walker and will have home care with PT on discharge. Patient seen and examined at bedside. Still with some abdominal pain, no nausea, no vomiting, no diarrhea. Arm pain is slightly better. Objective - Vital Signs Vital signs: Vital Signs Temp 98.1 F 08/17/19 11:08 Pulse 85 08/17/19 11:08 Resp 18 08/17/19 11:08 BP 157/78 08/17/19 11:08 Pulse Ox 94 L 08/17/19 11:08 Intake & Output 08/16/19 08/17/19 08/17/19 18:59 06:59 18:59 Intake Total 800 1090 450 Balance 800 1090 450 Intake: Intake, IV Titration 800 700 450 Amount Ampicillin-Sulbactam 3 gm 100 In Sodium Chloride 0.9% 100 ml @ 200 mls/hr IVPB Q8H ELIE Rx#:[id number] Piperacillin-Tazobactam 3 100 100 100 .375 gm In Sodium Chloride 0.9% 100 ml @ 25 mls/hr IVPB Q8H ELIE Rx#: [id number] Sodium Chloride 0.9% 1, 600 600 350 000 ml @ 75 mls/hr IV . [id number] ELIE Rx#:[id number] Oral 390 Other: # Voids 3 1 - Labs CBC & Chem 7: 08/17/19 08:04 08/17/19 08:04 Labs: Abnormal Lab Results - Last 24 Hours (Table) 08/17/19 08/17/19 Range/Units 08:04 08:04 RBC 3.58 L (3.80-5.40) m/uL MCV 104.7 H (80.0-100.0) fL Plt Count 132 L (150-450) k/uL Chloride 110 H (98-107) mmol/L BUN 22 H (7-17) mg/dL Microbiology - Last 24 Hours (Table) 08/16/19 01:15 Blood Culture - Preliminary Blood No Growth after 24 hours Assessment and Plan Assessment: Patient is an 88 yo CF here with ruptured diverticulitis Right radial head hairline fracture s/p fall - ortho recs appreciated, convert to walker. Home health. No heavy lifting. - pain control - pt/ot HTN - ACEI - Follow BP Lacteration right scalp - Bacitracin daily Diverticulitis with possible microperforation - Zosyn - IVF - NPO - Pain control GERD - PPI Tobacco abuse Daily ETOH use HLD DVT prophylaxis: Heparin
[2019-08-17] MEDS: D5W WITH KCL 20 MEQ/L 1,000 ML IV SCH (17:36)
[2019-08-17] MEDS: clonazePAM 1 MG TAB PO SCH (21:15)
[2019-08-18] MEDS: PIPERACILLIN-TAZOBACTAM 3.375 GM in SODIUM CHLORIDE 0.9% 100 ML IVPB SCH ×3 (02:00→17:43)
[2019-08-18] MEDS: D5W WITH KCL 20 MEQ/L 1,000 ML IV SCH ×3 (02:09→23:02)
[2019-08-18 07:15] LABS: HCT 33.2 % (34.0-46.0); HGB 10.7 gm/dL (11.4-16.0); MCH 33.6 pg (25.0-35.0); MCHC 32.1 g/dL (31.0-37.0); MCV 104.8 fL (80.0-100.0); Macrocytosis Slight; Mean Platelet Volume 9.6; Platelet Count 115 k/uL (150-450); RBC 3.17 m/uL (3.80-5.40); RDW 13.7 % (11.5-15.5); WBC 6.4 k/uL (3.8-10.6)
[2019-08-18 07:28] LABS: Calcium 8.5 mg/dL (8.4-10.2); Magnesium 1.5 mg/dL (1.6-2.3)
[2019-08-18] MEDS: PANTOPRAZOLE 40 MG/10 ML VIAL IVP SCH (08:15)
[2019-08-18] MEDS: LISINOPRIL 10 MG TAB PO SCH (08:16)
[2019-08-18] MEDS: HEPARIN SODIUM,PORCINE 5,000 UNIT/ML 1 ML VIAL SQ SCH ×2 (08:16→20:37)
[2019-08-18] MEDS: CHOLECALCIFEROL 1,000 UNIT TAB PO SCH (08:16)
[2019-08-18] MEDS: HYDROcodone/APAP 5-325MG 1 EACH TAB PO PRN ×2 (08:18→21:55)
[2019-08-18] MEDS: BACITRACIN 500 UNIT/GM OINT 28.4 GM TUBE TOPICAL SCH ×3 (08:20→21:15)
--- NOTE | 2019-08-18 13:02 | P.PN ---
Subjective Progress Note Date: 08/18/19 CHIEF COMPLAINT: Abdominal pain HISTORY OF PRESENT ILLNESS: Patient examined this morning at the bedside. She is tolerating ice chips and popsicles. Pain significantly improved today. PHYSICAL EXAM: VITAL SIGNS: Reviewed. GENERAL: Well-developed in no acute distress. HEENT: No sclera icterus. Extraocular movements grossly intact. Moist buccal mucosa. Head is atraumatic, normocephalic. ABDOMEN: Soft. Nondistended. Minimal tenderness on palpation of left upper and lower quadrant NEUROLOGIC: Alert and oriented. Cranial nerves II through XII grossly intact. ASSESSMENT: 1. Diverticulitis with localized perforation PLAN: -Begin clear liquid diet -Continue antibiotics -No surgical intervention recommended at this time Nurse practitioner note has been reviewed by physician. Signing provider agrees with the documented findings, assessment, and plan of care. Objective - Vital Signs Vital signs: Vital Signs Temp 97.6 F 08/18/19 11:56 Pulse 73 08/18/19 11:56 Resp 17 08/18/19 11:56 BP 156/69 08/18/19 11:56 Pulse Ox 97 08/18/19 11:56 Intake & Output 08/17/19 08/18/19 08/18/19 18:59 06:59 18:59 Intake Total 450 1300 Balance 450 1300 Intake: Intake, IV Titration 450 1300 Amount D5w with KCl 20 Meq/l 1, 1200 000 ml @ 100 mls/hr IV . Q10H ELIE Rx#:[id number] Piperacillin-Tazobactam 3 100 100 .375 gm In Sodium Chloride 0.9% 100 ml @ 25 mls/hr IVPB Q8H ELIE Rx#: [id number] Sodium Chloride 0.9% 1, 350 000 ml @ 75 mls/hr IV . [id number] ELIE Rx#:[id number] Other: Voiding Method Toilet Diaper # Voids 2 - Labs CBC & Chem 7: 08/18/19 06:16 08/18/19 06:16 Labs: Abnormal Lab Results - Last 24 Hours (Table) 08/18/19 08/18/19 Range/Units 06:16 06:16 RBC 3.17 L (3.80-5.40) m/uL Hgb 10.7 L (11.4-16.0) gm/dL Hct 33.2 L (34.0-46.0) % MCV 104.8 H (80.0-100.0) fL Plt Count 115 L (150-450) k/uL Sodium 136 L (137-145) mmol/L Chloride 110 H (98-107) mmol/L Glucose 115 H (74-99) mg/dL Magnesium 1.5 L (1.6-2.3) mg/dL Microbiology - Last 24 Hours (Table) 08/16/19 01:15 Blood Culture - Preliminary Blood No Growth after 48 hours
--- NOTE | 2019-08-18 17:49 | P.PN ---
Subjective Progress Note Date: 08/18/19 Principal diagnosis: Diverticulitis Patient is an 88-year-old female with history of hypertension, GERD, dyslipidemia and hypothyroidism who presented to the emergency room and ab dominal pain. Patient had an extensive evaluation she had normal laboratory analysis, vital signs were normal CT of the abdomen pelvis showed localized free air in the pelvis with inflammatory changes there was concern for ruptured diverticulitis patient was started on IV antibiotics and admitted to surgery we were consulted for medical management. Patient reports recent fall she had Norment x-ray which showed radial head fracture orthopedics recommended conservative management. Patient states her pain is improved she was looking forward to starting a diet and states she wants to go home soon. Objective - Vital Signs Vital signs: Vital Signs Temp 97.6 F 08/18/19 11:56 Pulse 73 08/18/19 11:56 Resp 17 08/18/19 11:56 BP 156/69 08/18/19 11:56 Pulse Ox 97 08/18/19 11:56 Intake & Output 08/17/19 08/18/19 08/18/19 18:59 06:59 18:59 Intake Total 450 1300 200 Balance 450 1300 200 Intake: Intake, IV Titration 450 1300 200 Amount D5w with KCl 20 Meq/l 1, 1200 100 000 ml @ 100 mls/hr IV . Q10H ELIE Rx#:[id number] Piperacillin-Tazobactam 3 100 100 100 .375 gm In Sodium Chloride 0.9% 100 ml @ 25 mls/hr IVPB Q8H ELIE Rx#: [id number] Sodium Chloride 0.9% 1, 350 000 ml @ 75 mls/hr IV . [id number] ELIE Rx#:[id number] Other: Voiding Method Toilet Diaper # Voids 2 - Labs CBC & Chem 7: 08/18/19 06:16 08/18/19 06:16 Labs: Abnormal Lab Results - Last 24 Hours (Table) 08/18/19 08/18/19 Range/Units 06:16 06:16 RBC 3.17 L (3.80-5.40) m/uL Hgb 10.7 L (11.4-16.0) gm/dL Hct 33.2 L (34.0-46.0) % MCV 104.8 H (80.0-100.0) fL Plt Count 115 L (150-450) k/uL Sodium 136 L (137-145) mmol/L Chloride 110 H (98-107) mmol/L Glucose 115 H (74-99) mg/dL Magnesium 1.5 L (1.6-2.3) mg/dL Microbiology - Last 24 Hours (Table) 08/16/19 01:15 Blood Culture - Preliminary Blood No Growth after 48 hours Assessment and Plan (1) Diverticulitis of intestine with perforation Narrative/Plan: Continue per primary, no plan for surgery at this time, diet to be advanced, pain control Current Visit: Yes Status: Acute Code(s): K57.80 - DVTRCLI OF INTEST, PART UNSP, W PERF AND ABSCESS W/O BLEED SNOMED Code(s): 523590657 Plan: 1. Hypertension: Continue outpatient regiment and titrate as needed 2. Ruptured diverticulitis: Continue IV antibiotics, no plan for surgical intervention at this time 3. Right radial fracture conservative management at this time 4. Disposition: Diet to be advanced continue to monitor medically optimized as needed
[2019-08-18] MEDS: clonazePAM 1 MG TAB PO SCH (20:37)
[2019-08-19] MEDS: PIPERACILLIN-TAZOBACTAM 3.375 GM in SODIUM CHLORIDE 0.9% 100 ML IVPB SCH ×2 (01:05→09:13)
[2019-08-19] MEDS: LISINOPRIL 10 MG TAB PO SCH (09:12)
[2019-08-19] MEDS: HEPARIN SODIUM,PORCINE 5,000 UNIT/ML 1 ML VIAL SQ SCH (09:12)
[2019-08-19] MEDS: CHOLECALCIFEROL 1,000 UNIT TAB PO SCH (09:12)
[2019-08-19] MEDS: PANTOPRAZOLE 40 MG/10 ML VIAL IVP SCH (09:13)
[2019-08-19] MEDS: D5W WITH KCL 20 MEQ/L 1,000 ML IV SCH (09:14)
[2019-08-19] MEDS: HYDROcodone/APAP 5-325MG 1 EACH TAB PO PRN (09:17)
[2019-08-19] MEDS: BACITRACIN 500 UNIT/GM OINT 28.4 GM TUBE TOPICAL SCH (09:20)
[2019-08-19 09:53] VITALS: BMI 25.0
[2019-08-19 11:57] VITALS: BP 180/74; PULSE 88; RESP 16; TEMP 98.2
--- NOTE | 2019-08-19 12:57 | P.DS ---
Providers Date of admission: 08/16/19 01:42 Expected date of discharge: 08/19/19 Attending physician: Estrada Ward Consults: 08/16/19 08:34 Consult Physician Routine Consulting Provider: Ora Cao Consult Reason/Comments: medical management Do you want consulting provider notified?: Yes 08/16/19 14:52 Consult Physician Routine Consulting Provider: Pola Crabtree Consult Reason/Comments: possible hair line right radail fracture Do you want consulting provider notified?: Yes Primary care physician: [facility] Course: 88-year-old female who presented to the emergency room with abdominal pain. Patient examined at the bedside with Dr. Ward. Patient reports she has history of duodenal ulcers. She states she has been having pain in the left side of her abdomen for the last 2-3 weeks and thought may be secondary to another ulcer. She also reports having some pain when she had a bowel movement. CT abdomen pelvis: Localized free air in the pelvis with inflammatory changes and mild fluid in the pelvis on the right side and right pericolic gutter. This could relate to localize diverticulitis or diverticular perforation. Patient was placed on bowel rest and IV antibiotics. Her abdominal pain has resolved. She is stable for discharge home today on oral antibiotics. Discharge Diagnosis: 1. Diverticulitis with localized perforation Nurse practitioner note has been reviewed by physician. Signing provider agrees with the documented findings, assessment, and plan of care. Patient Condition at Discharge: Stable Plan - Discharge Summary New Discharge Prescriptions: New metroNIDAZOLE [Flagyl] 500 mg PO TID #21 tab Levofloxacin [Levaquin] 500 mg PO DAILY 7 Days #7 tab Continue Cholecalciferol [Vitamin D3 (25 Mcg = 1000 Iu)] 2,000 unit PO DAILY Acetaminophen Tab [Tylenol] 650 mg PO Q6HR PRN tab PRN Reason: Mild Pain Or Fever > 100.5 rOPINIRole HCL [Requip] 0.375 mg PO HS Ramipril 2.5 mg PO DAILY Ketoconazole 2% Cream [Nizoral 2%] 1 applic TOPICAL BID HYDROcodone/APAP 5-325MG [[place] 5-325] 1 tab PO BID PRN PRN Reason: Pain clonazePAM [KlonoPIN] 1 mg PO HS Acetaminophen/Diphenhydramine [Tylenol Pm Ex-Strength Caplet] 1 tab PO HS Discharge Medication List Cholecalciferol [Vitamin D3 (25 Mcg = 1000 Iu)] 2,000 unit PO DAILY 08/24/17 [History] Acetaminophen Tab [Tylenol] 650 mg PO Q6HR PRN tab 08/27/17 [Rx] Acetaminophen/Diphenhydramine [Tylenol Pm Ex-Strength Caplet] 1 tab PO HS 08/15/19 [History] HYDROcodone/APAP 5-325MG [[place] 5-325] 1 tab PO BID PRN 08/15/19 [History] Ketoconazole 2% Cream [Nizoral 2%] 1 applic TOPICAL BID 08/15/19 [History] Ramipril 2.5 mg PO DAILY 08/15/19 [History] clonazePAM [KlonoPIN] 1 mg PO HS 08/15/19 [History] rOPINIRole HCL [Requip] 0.375 mg PO HS 08/15/19 [History] Levofloxacin [Levaquin] 500 mg PO DAILY 7 Days #7 tab 08/19/19 [Rx] metroNIDAZOLE [Flagyl] 500 mg PO TID #21 tab 08/19/19 [Rx] Follow up Appointment(s)/Referral(s): Yung Vázquez MD [Primary Care Provider] - 1-2 days Pola Crabtree DO [Doctor of Osteopathic Medicine] - 4 Weeks Estrada Ward MD [STAFF PHYSICIAN] - 1 Week Activity/Diet/Wound Care/Special Instructions: pt would like a wheel chair van to take her home at time of d/c pt is aware of the cost.
--- NOTE | 2019-08-19 18:14 | P.PN ---
Subjective Progress Note Date: 08/19/19 Principal diagnosis: Ruptured diverticulitis 88-year-old female with history of hypertension, GERD, the patient dyslipidemia and hypothyroidism who was admitted for abdominal pain. Patient had normal labs, normal vital CT of the abdomen showed localized free air in the pelvis w ith inflammatory changes she is focused concern of ruptured diverticulitis admitted to surgery and started on IV antibiotics Objective - Vital Signs Vital signs: Vital Signs Temp 98.2 F 08/19/19 11:39 Pulse 88 08/19/19 11:39 Resp 16 08/19/19 11:39 BP 180/74 08/19/19 11:39 Pulse Ox 92 L 08/19/19 11:39 Intake & Output 08/18/19 08/19/19 08/19/19 18:59 06:59 18:59 Intake Total 200 800 Balance 200 800 Weight 58.06 kg Intake: Intake, IV Titration 200 800 Amount D5w with KCl 20 Meq/l 1, 100 800 000 ml @ 100 mls/hr IV . Q10H ELIE Rx#:[id number] Piperacillin-Tazobactam 3 100 .375 gm In Sodium Chloride 0.9% 100 ml @ 25 mls/hr IVPB Q8H ELIE Rx#: [id number] Other: Voiding Method Toilet Toilet Diaper Diaper # Voids 2 3 - Constitutional General appearance: Present: no acute distress - Respiratory Respiratory: bilateral: CTA - Cardiovascular Rhythm: regular - Gastrointestinal General gastrointestinal: Present: normal bowel sounds - Labs CBC & Chem 7: 08/18/19 06:16 08/18/19 06:16 Labs: Microbiology - Last 24 Hours (Table) 08/16/19 01:15 Blood Culture - Preliminary Blood No Growth after 72 hours Assessment and Plan (1) Diverticulitis of intestine with perforation Status: Acute Code(s): K57.80 - DVTRCLI OF INTEST, PART UNSP, W PERF AND ABSCESS W/O BLEED SNOMED Code(s): 331189386 Plan: Late entry: Seen earlier this morning Hypertension: Continue outpatient regiment Right radial fracture with plan for conservative management Ruptured diverticulitis patient was tolerating a diet she was pain-free and family evaluation.
== END 2019-08-19 15:45 | disposition home or self-care (01) | DRG 392 ==
LOC: EC 21:57 → 5NMEDONC 08-16 01:42
PROVIDERS: ADMIT Surgery; ATTEND Surgery
DX: K57.20 Diverticulitis of large intestine with perforation and abscess without bleeding (principal); Z16.12 Extended spectrum beta lactamase (ESBL) resistance; E03.9 Hypothyroidism, unspecified; E78.5 Hyperlipidemia, unspecified; F17.200 Nicotine dependence, unspecified, uncomplicated; F41.0 Panic disorder [episodic paroxysmal anxiety]; F43.10 Post-traumatic stress disorder, unspecified; G25.81 Restless legs syndrome; G89.29 Other chronic pain; I10 Essential (primary) hypertension; K21.9 Gastro-esophageal reflux disease without esophagitis; M17.11 Unilateral primary osteoarthritis, right knee; S52.121A Displaced fracture of head of right radius, initial encounter for closed fracture; S80.01XA Contusion of right knee, initial encounter; W19.XXXA Unspecified fall, initial encounter; Z79.899 Other long term (current) drug therapy; Z87.11 Personal history of peptic ulcer disease; Z87.442 Personal history of urinary calculi; Z90.710 Acquired absence of both cervix and uterus; Z91.81 History of falling; Z96.1 Presence of intraocular lens; Z79.891 Long term (current) use of opiate analgesic; Z98.42 Cataract extraction status, left eye; Z98.41 Cataract extraction status, right eye
CPT/HCPCS: 36415; 74177; 80048; 80053; 81003; 83605; 83690; 83735; 84484; 85025; 85027; 87040; 93005; 96361; 96365; 96375; 99285

== ENCOUNTER 2019-08-25 20:28 | Inpatient (IN) | payer MEDICARE ==
[2019-08-25] MEDS ORDERED: ACETAMINOPHEN TAB 500 MG TAB PO STA (20:50)
[2019-08-25] MEDS ORDERED: SODIUM CHLORIDE 0.9% 1,000 ML IV ONE ×2 (20:51→23:09)
--- NOTE | 2019-08-25 20:51 | ED ---
General Adult HPI - General Chief complaint: Nausea/Vomiting/Diarrhea Stated complaint: Weakness Time Seen by Provider: 08/25/19 20:35 Source: patient, EMS, RN notes reviewed, old records reviewed Mode of arrival: EMS Limitations: no limitations - History of Present Illness Initial comments: This is an 88-year-old female who presents emergency Department with a recent history of diverticulitis. Patient was admitted the hospital 2 weeks ago and she was discharged home about 5 days ago. Patient states she just finished her antibiotics as per patient states ever since she's been home she began getting weaker and weaker and having quite a bit of diarrhea. Patient states diarrhea is a little less today but her weakness was greater. Patient did not know she had a fever but currently she has 101 fever in the emergency department. Patient denies any difficulty breathing or shortness of breath per patient denies any cough. Patient denies any headache patient denies lightheadedness or dizziness. Patient denies any nausea vomiting. Patient states she has a little abdominal pain on the left but it is much improved from the previous 2 weeks. Patient denies any dysuria hematuria urinary frequency. - Related Data Home Medications Medication Instructions Recorded Confirmed Cholecalciferol [Vitamin D3 (25 2,000 unit PO DAILY 08/24/17 08/25/19 Mcg = 1000 Iu)] Acetaminophen/Diphenhydramine 1 tab PO HS 08/15/19 08/25/19 [Tylenol Pm Ex-Strength Caplet] HYDROcodone/APAP 5-325MG [[place] 1 tab PO BID PRN 08/15/19 08/25/19 5-325] Ketoconazole 2% Cream [Nizoral 2%] 1 applic TOPICAL BID 08/15/19 08/25/19 Ramipril 2.5 mg PO DAILY 08/15/19 08/25/19 clonazePAM [KlonoPIN] 1 mg PO HS 08/15/19 08/25/19 rOPINIRole HCL [Requip] 0.375 mg PO HS 08/15/19 08/25/19 Previous Rx's Medication Instructions Recorded Acetaminophen Tab [Tylenol] 650 mg PO Q6HR PRN tab 08/27/17 Levofloxacin [Levaquin] 500 mg PO DAILY 7 Days #7 tab 08/19/19 metroNIDAZOLE [Flagyl] 500 mg PO TID #21 tab 08/19/19 Allergies Allergy/AdvReac Type Severity Reaction Status Date / Time No Known Allergies Allergy Verified 08/25/19 22:36 Review of Systems ROS Statement: Those systems with pertinent positive or pertinent negative responses have been documented in the HPI. ROS Other: All systems not noted in ROS Statement are negative. Past Medical History Past Medical History: Hyperlipidemia, Hypertension, Osteoarthritis (OA), Sleep A pnea/CPAP/BIPAP, Thyroid Disorder Additional Past Medical History / Comment(s): rls, arthritis in hands, GERD, gastric ulcer, past uterine fibroids, nephrolithiasis History of Any Multi-Drug Resistant Organisms: None Reported, ESBL Date of last positivie culture/infection: 08/24/17 MDRO Source:: URINE Past Surgical History: Adenoidectomy, Appendectomy, Hysterectomy, Tonsillectomy Additional Past Surgical History / Comment(s): Strabismus correction. cataracts- lens implants, blepharoplasty, lithotripsy Past Anesthesia/Blood Transfusion Reactions: No Reported Reaction Past Psychological History: Panic Disorder, PTSD Smoking Status: Current every day smoker Past Alcohol Use History: Daily Past Drug Use History: None Reported - Past Family History Father Additional Family Medical History / Comment(s): cardiac problems Mother Additional Family Medical History / Comment(s): mom fom old age General Exam - General Exam Comments Initial Comments: GENERAL: Patient is well-developed and well-nourished. Patient is nontoxic and well- hydrated and is in mild distress. ENT: Neck is soft and supple. No significant lymphadenopathy is noted. Oropharynx is clear. Moist mucous membranes. Neck has full range of motion without eliciting any pain. EYES: The sclera were anicteric and conjunctiva were pink and moist. Extraocular movements were intact and pupils were equal round and reactive to light. Eyelids were unremarkable. PULMONARY: Unlabored respirations. Good breath sounds bilaterally. No audible rales rhonchi or wheezing was noted. CARDIOVASCULAR: There is a regular rate and rhythm without any murmurs gallops or rubs. Femoral pulses are equal bilaterally ABDOMEN: There is slight left lower quadrant abdominal pain SKIN: Skin is clear with no lesions or rashes and otherwise unremarkable. NEUROLOGIC: Patient is alert and oriented x3. Cranial nerves II through XII are grossly intact. Motor and sensory are also intact. Normal speech, volume and content. Symmetrical smile. MUSCULOSKELETAL: Normal extremities with adequate strength and full range of motion. No lower extremity swelling or edema. No calf tenderness. LYMPHATICS: No significant lymphadenopathy is noted PSYCHIATRIC: Normal psychiatric evaluation. Limitations: no limitations Course Vital Signs 08/25/19 08/25/19 20:35 21:37 Temperature 101.1 F H 101.0 F H Pulse Rate 96 86 Respiratory 20 16 Rate Blood Pressure 176/86 156/81 O2 Sat by Pulse 96 98 Oximetry Medical Decision Making - Medical Decision Making EKG shows normal sinus rhythm at 91 bpm WV interval 158 QRS is 72 QT interval 336 QTC is 413. Patient's EKG shows no ST segment elevation or depression or T wave abnormalities are noted. CT of the abdomen and pelvis shows no acute abnormality. CT of the chest showed possible mass left apical region. I cannot find source at this time of the patient's fever however the C. diff was sent out for testing. I spoke with Dr. Lozano he agreed to admit the patient admitted the patient wrote admitting orders. D-dimer was slightly elevated however patient had no symptoms of shortness of breath chest pain or any difficulty breathing. Patient's pulse ox is 9899 room air. - Lab Data Result diagrams: 08/25/19 20:49 08/25/19 20:49 Lab Results 08/25/19 08/25/19 08/25/19 Range/Units 20:49 20:49 20:49 WBC 4.8 (3.8-10.6) k/uL RBC 3.81 (3.80-5.40) m/uL Hgb 12.9 (11.4-16.0) gm/dL Hct 40.2 (34.0-46.0) % MCV 105.6 H (80.0-100.0) fL MCH 33.9 (25.0-35.0) pg MCHC 32.1 (31.0-37.0) g/dL RDW 13.9 (11.5-15.5) % Plt Count 189 D (150-450) k/uL Neutrophils % 74 % Lymphocytes % 12 % Monocytes % 8 % Eosinophils % 2 % Basophils % 0 % Neutrophils # 3.5 (1.3-7.7) k/uL Lymphocytes # 0.6 L (1.0-4.8) k/uL Monocytes # 0.4 (0-1.0) k/uL Eosinophils # 0.1 (0-0.7) k/uL Basophils # 0.0 (0-0.2) k/uL Hypochromasia Slight Macrocytosis Moderate PT 11.6 (9.0-12.0) sec INR 1.1 (<1.2) APTT 26.3 (22.0-30.0) sec D-Dimer 1.81 H (<0.60) mg/L FEU Sodium 136 L (137-145) mmol/L Potassium 4.5 (3.5-5.1) mmol/L Chloride 102 (98-107) mmol/L Carbon Dioxide 26 (22-30) mmol/L Anion Gap 8 mmol/L BUN 13 (7-17) mg/dL Creatinine 1.32 H (0.52-1.04) mg/dL Est GFR (CKD-EPI)AfAm 42 (>60 ml/min/1.73 sqM) Est GFR (CKD-EPI)NonAf 37 (>60 ml/min/1.73 sqM) Glucose 170 H (74-99) mg/dL Plasma Lactic Acid Don (0.7-2.0) mmol/L Calcium 10.9 H (8.4-10.2) mg/dL Magnesium 1.1 L (1.6-2.3) mg/dL Total Bilirubin 0.4 (0.2-1.3) mg/dL AST 28 (14-36) U/L ALT 17 (4-34) U/L Alkaline Phosphatase 169 H (38-126) U/L Lactate Dehydrogenase 351 (313-618) U/L C-Reactive Protein 19.5 H (<10.0) mg/L Total Protein 6.4 (6.3-8.2) g/dL Albumin 3.7 (3.5-5.0) g/dL Urine Color Urine Appearance (Clear) Urine pH (5.0-8.0) Ur Specific [employer] (1.001-1.035) Urine Protein (Negative) Urine Glucose (UA) (Negative) Urine Ketones (Negative) Urine Blood (Negative) Urine Nitrite (Negative) Urine Bilirubin (Negative) Urine Urobilinogen (<2.0) mg/dL Ur Leukocyte Esterase (Negative) Urine RBC (0-5) /hpf Urine WBC (0-5) /hpf Ur Squamous Epith Cells (0-4) /hpf Urine Mucus (None) /hpf Coronavirus (PCR) (Not Detectd) Influenza Type A RNA (Not Detectd) Influenza Type B (PCR) (Not Detectd) 08/25/19 08/25/19 08/25/19 Range/Units 20:49 21:08 21:30 WBC (3.8-10.6) k/uL RBC (3.80-5.40) m/uL Hgb (11.4-16.0) gm/dL Hct (34.0-46.0) % MCV (80.0-100.0) fL MCH (25.0-35.0) pg MCHC (31.0-37.0) g/dL RDW (11.5-15.5) % Plt Count (150-450) k/uL Neutrophils % % Lymphocytes % % Monocytes % % Eosinophils % % Basophils % % Neutrophils # (1.3-7.7) k/uL Lymphocytes # (1.0-4.8) k/uL Monocytes # (0-1.0) k/uL Eosinophils # (0-0.7) k/uL Basophils # (0-0.2) k/uL Hypochromasia Macrocytosis PT (9.0-12.0) sec INR (<1.2) APTT (22.0-30.0) sec D-Dimer (<0.60) mg/L FEU Sodium (137-145) mmol/L Potassium (3.5-5.1) mmol/L Chloride (98-107) mmol/L Carbon Dioxide (22-30) mmol/L Anion Gap mmol/L BUN (7-17) mg/dL Creatinine (0.52-1.04) mg/dL Est GFR (CKD-EPI)AfAm (>60 ml/min/1.73 sqM) Est GFR (CKD-EPI)NonAf (>60 ml/min/1.73 sqM) Glucose (74-99) mg/dL Plasma Lactic Acid Don 1.4 (0.7-2.0) mmol/L Calcium (8.4-10.2) mg/dL Magnesium (1.6-2.3) mg/dL Total Bilirubin (0.2-1.3) mg/dL AST (14-36) U/L ALT (4-34) U/L Alkaline Phosphatase (38-126) U/L Lactate Dehydrogenase (313-618) U/L C-Reactive Protein (<10.0) mg/L Total Protein (6.3-8.2) g/dL Albumin (3.5-5.0) g/dL Urine Color Light Red Urine Appearance Clear (Clear) Urine pH 5.5 (5.0-8.0) Ur Specific [employer] 1.025 (1.001-1.035) Urine Protein 1+ H (Negative) Urine Glucose (UA) Negative (Negative) Urine Ketones 1+ H (Negative) Urine Blood Negative (Negative) Urine Nitrite Positive H (Negative) Urine Bilirubin Negative (Negative) Urine Urobilinogen <2.0 (<2.0) mg/dL Ur Leukocyte Esterase Small H (Negative) Urine RBC 1 (0-5) /hpf Urine WBC 2 (0-5) /hpf Ur Squamous Epith Cells <1 (0-4) /hpf Urine Mucus Rare H (None) /hpf Coronavirus (PCR) Not Detected (Not Detectd) Influenza Type A RNA Not Detected (Not Detectd) Influenza Type B (PCR) Not Detected (Not Detectd) Disposition Clinical Impression: Acute diarrhea, Generalized weakness, Fever of unknown origin, Hypomagnesemia Disposition: ADMITTED IP TO THIS HOSP Referrals: Yung Vázquez MD [Primary Care Provider] - 1-2 days Time of Disposition: 23:09
[2019-08-25 21:02] LABS: Basophils % (A) 0 %; Eosinophils # (A) 0.1 k/uL (0-0.7); Eosinophils % (A) 2 %; HCT 40.2 % (34.0-46.0); HGB 12.9 gm/dL (11.4-16.0); Hypochromasia Slight; Lymphocytes # (A) 0.6 k/uL (1.0-4.8); Lymphocytes % (A) 12 %; MCH 33.9 pg (25.0-35.0); MCHC 32.1 g/dL (31.0-37.0); MCV 105.6 fL (80.0-100.0); Macrocytosis Moderate; Mean Platelet Volume 8.9; Monocytes # (A) 0.4 k/uL (0-1.0); Monocytes % (A) 8 %; Neutrophils # (A) 3.5 k/uL (1.3-7.7); Neutrophils % (A) 74 %; RBC 3.81 m/uL (3.80-5.40); RDW 13.9 % (11.5-15.5); WBC 4.8 k/uL (3.8-10.6)
[2019-08-25 21:13] LABS: Albumin 3.7 g/dL (3.5-5.0); C Reactive Protein 19.5 mg/L (<10.0); Calcium 10.9 mg/dL (8.4-10.2); Magnesium 1.1 mg/dL (1.6-2.3); Platelet Count 189 k/uL (150-450); Potassium 4.5 mmol/L (3.5-5.1); Total Bilirubin 0.4 mg/dL (0.2-1.3); Total Protein 6.4 g/dL (6.3-8.2)
[2019-08-25 21:20] LABS: INR 1.1 (<1.2); Partial Thromboplastin Time 26.3 sec (22.0-30.0); Prothrombin Time 11.6 sec (9.0-12.0)
[2019-08-25 21:29] LABS: D-Dimer 1.81 mg/L FEU (<0.60)
[2019-08-25 21:52] LABS: Appearance,Urine Clear (Clear); Bilirubin,Urine Negative (Negative); Blood,Urine Negative (Negative); Color,Urine Light Red; Glucose,Urine (UA) Negative (Negative); Ketones,Urine 1+ (Negative); Leukocyte Esterase,Urine Small (Negative); Mucus,Urine Rare /hpf; Nitrite,Urine Positive (Negative); PH, Urine 5.5 (5.0-8.0); Protein,Urine 1+ (Negative); RBC,Urine 1 /hpf (0-5); Specific Gravity,Urine 1.025 (1.001-1.035); Squamous Epithelial Cell,Urine <1 /hpf (0-4); Urobilinogen,Urine <2.0 mg/dL (<2.0); WBC,Urine 2 /hpf (0-5)
--- NOTE | 2019-08-25 22:37 | XR ---
EXAMINATION TYPE: XR chest 1V portable DATE OF EXAM: 08/25/2019 COMPARISON: 08/24/2017 INDICATION: Suspected Covid 19 and pneumonia TECHNIQUE: Single frontal view of the chest is obtained. FINDINGS: The heart size is normal. The pulmonary vasculature is normal. The lungs are clear. IMPRESSION: 1. No acute pulmonary process.
--- NOTE | 2019-08-25 22:48 | CT ---
EXAMINATION TYPE: CT ChestAbdPelvis wo con DATE OF EXAM: 08/25/2019 INDICATION: diverticulitis COMPARISON: 08/16/2019 CT DLP: 617.2 mGycm CONTRAST: Performed without Oral Contrast . No intravenous contrast TECHNIQUE: Axial images at 5 mm thick sections. Reconstructed images in the coronal plane. Delayed images through the kidneys. FINDINGS: CT CHEST: Portion of the thyroid visualized is normal. There is a small area of increased density within the medial left apex measuring 0.9 x 0.8 cm series 201 image 10. Neoplasm and scarring should be considered within the differential. No enlarged mediastinal or hilar adenopathy is evident. Multiple small shotty lymph nodes are present within the mediastinum. No suspicious infiltrates are identified. No peripheral consolidations are increased linear markings are evident. No groundglass opacities are evident. Early findings for Covid 19 type infections is not evident. Follow-up exams can be performed as clinically indicated. The ascending aorta diameter at the level of the main pulmonary artery is 4.0 cm. The main pulmonary artery diameter at the bifurcation is 2.7 cm. Mild coronary calcification is present CT ABDOMEN: Liver: Normal Spleen: Normal Pancreas: Normal Adrenal glands: The adrenal glands are normal. Gallbladder: Normal Kidneys: No masses are evident. No hydronephrosis is present. No cysts are present. There is a 0.6 cm calcification without obstruction at the inferior pole right kidney. There is a 0.9 cm calcificat ion without obstruction at the inferior pole left kidney. Uptake mid kidney renal stone is present wi thout obstruction measuring 0.4 cm. Aorta: Vascular calcification is within the aorta. Inferior vena cava: Normal. CT PELVIS: Loops of bowel within the abdomen and pelvis are normal. There are a few diverticular changes wit hin the sigmoid colon. No adjacent inflammatory changes to suggest acute diverticulitis are evident. No free air is identified. Appendix: Normal as visualized. Urinary bladder: Normal. Genitourinary structures: Uterus and ovaries are not identified. Osseous structures: No suspicious lytic or sclerotic lesions. IMPRESSIONS: 1. No suspicious changes to suggest acute Covid infection based on radiographic CT findings. 2. Irregular mass superior medial left apex. Correlate for neoplasm versus scarring. Consider follow- up PET/CT. 3. Mild Diverticulosis without acute diverticulitis. 4. Bilateral nonobstructing renal stones.
[2019-08-25] MEDS: MAGNESIUM SULFATE-D5W PMX 1 GM in DEXTROSE/WATER 1 100ML.BAG IVPB SCH (23:34)
[2019-08-26] MEDS: MAGNESIUM SULFATE-D5W PMX 1 GM in DEXTROSE/WATER 1 100ML.BAG IVPB SCH ×3 (00:33→05:41)
--- NOTE | 2019-08-26 02:55 | P.HPIM ---
History of Present Illness H&P Date: 08/26/19 The patient is an 88-year-old female with a PMH of hypertension, duodenal ulcers, diverticulosis, GERD, hyperlipidemia, and hypothyroidism with a recent admission for diverticulitis and localized perforation presented to the ED with complaints of abdominal pain, and diarrhea. The patient reports that following her discharge to home on 08/18, she immediately began having soft "jelly-like" black stools. She notes that she had 5-7 stools per day, with occasional intermittent left-sided abdominal pain with no clear inciting or alleviating factors. She reports that due to her diarrhea and abdominal pain, she has been unable to tolerate much foods and as a result has been feeling really weak. A side from the abdominal pain and diarrhea, she denied any additional complaints. She denied experiencing a cough, fever, sore throat, chest pain, or shortness of breath. She also denied dysuria, leg pain, headache, or visual disturbances. The patient reports that she completed her course of levofloxacin and Flagyl and continued having diarrhea despite taking the above medications. She underwent an extensive evaluation in the emergency room with CT chest abdomen and pelvis without contrast showing an irregular superior medial left apex mass, concerning for neoplasm versus scarring with a follow-up CT recommended. CT also revealed mild diverticulosis without diverticulitis and bilateral n onobstructing renal stones. Chest x-ray was unremarkable and EKG showed normal sinus rhythm at 91 bpm with T-wave inversion in lead III and T-wave flattening in lead aVF. Laboratory evaluation revealed a WBC count of 4.8, hemoglobin 12.9, platelet 189, sodium 136, potassium 4.5, chloride 102, CO2 26, BUN 13, creatinine 1.32, glucose 170, and magnesium 1.1. UA showed positive nitrates and small leukocyte esterase with no leukocytosis. Influenza and coronavirus testing was negative. Review of Systems Pertinent positives and negatives as discussed in HPI, a complete review of systems was performed and all other systems are negative. Past Medical History Past Medical History: Hyperlipidemia, Hypertension, Osteoarthritis (OA), Sleep Apnea/CPAP/BIPAP, Thyroid Disorder Additional Past Medical History / Comment(s): rls, arthritis in hands, GERD, gastric ulcer, past uterine fibroids, nephrolithiasis History of Any Multi-Drug Resistant Organisms: None Reported, ESBL Date of last positivie culture/infection: 08/24/17 MDRO Source:: URINE Past Surgical History: Adenoidectomy, Appendectomy, Hysterectomy, Tonsillectomy Additional Past Surgical History / Comment(s): Strabismus correction. cataracts- lens implants, blepharoplasty, lithotripsy Past Anesthesia/Blood Transfusion Reactions: No Reported Reaction Past Psychological History: Panic Disorder, PTSD Additional Psychological History / Comment(s): pt is . lives alone in single level home. has life alert. uses cane when up. has a cleaning service. drives. Smoking Status: Current every day smoker Past Alcohol Use History: Daily Additional Past Alcohol Use History / Comment(s): started smoking at age 21, currently smokes 2-3 cig/day and has 1-2 coctails at night Past Drug Use History: None Reported - Past Family History Father Additional Family Medical History / Comment(s): cardiac problems Mother Additional Family Medical History / Comment(s): mom fom old age Medications and Allergies Home Medications Medication Instructions Recorded Confirmed Type Cholecalciferol [Vitamin D3 (25 2,000 unit PO DAILY 08/24/17 08/25/19 History Mcg = 1000 Iu)] Acetaminophen Tab [Tylenol] 650 mg PO Q6HR PRN tab 08/27/17 08/25/19 Rx Acetaminophen/Diphenhydramine 1 tab PO HS 08/15/19 08/25/19 History [Tylenol Pm Ex-Strength Caplet] HYDROcodone/APAP 5-325MG [[place] 1 tab PO BID PRN 08/15/19 08/25/19 History 5-325] Ketoconazole 2% Cream [Nizoral 2%] 1 applic TOPICAL BID 08/15/19 08/25/19 History Ramipril 2.5 mg PO DAILY 08/15/19 08/25/19 History clonazePAM [KlonoPIN] 1 mg PO HS 08/15/19 08/25/19 History rOPINIRole HCL [Requip] 0.375 mg PO HS 08/15/19 08/25/19 History Levofloxacin [Levaquin] 500 mg PO DAILY 7 Days #7 tab 08/19/19 08/25/19 Rx metroNIDAZOLE [Flagyl] 500 mg PO TID #21 tab 08/19/19 08/25/19 Rx Allergies Allergy/AdvReac Type Severity Reaction Status Date / Time No Known Allergies Allergy Verified 08/25/19 22:36 Physical Exam Vitals: Vital Signs Temp Pulse Pulse Resp BP BP Pulse Ox 08/26/19 00:07 98.8 F 83 20 163/80 98 08/25/19 23:28 98.1 F 84 16 147/77 96 08/25/19 21:37 101.0 F H 86 16 156/81 98 08/25/19 20:35 101.1 F H 96 20 176/86 96 Intake and Output 08/25/19 08/25/19 08/26/19 14:59 22:59 06:59 Intake Total 1000 Balance 1000 Intake: Amount of Fluid Infused ( 1000 ml) Other: Weight 58.06 kg 58.06 kg General: non toxic, no distress, appears at stated age, normal weight Derm: no unusual rashes/lesions no unusual ecchymoses, warm, dry Head: atraumatic, normocephalic, symmetric Eyes: EOMI, no lid lag, anicteric sclera, pupils equal round reactive to light ENT: Nose and ears atraumatic, no thrush, no pharyngeal erythema Neck: No thyromegaly, no cervical lymphadenopathy, trachea midline, supple Mouth: no lip lesion, mucus membranes moist Cardiovascular: S1S2 reg, no murmur, positive posterior tibial pulse bilateral, no edema, capillary refill less than 2 seconds Lungs: CTA bilateral, no rhonchi, no rales , no accessory muscle use Abdominal: soft, nontender to palpation, no guarding, no appreciable organomegaly, normal bowel sounds Ext: no gross muscle atrophy, muscle strength 3+ out of 5 in all 4 extremities grossly, no contractures, Neuro: CN II-XI grossly intact, light touch intact all 4 extremities, finger to nose within normal limits, Psych: Alert, oriented, appropriate affect Results CBC & Chem 7: 08/25/19 20:49 08/25/19 20:49 Labs: Abnormal Lab Results - Last 24 Hours (Table) 08/25/19 08/25/19 08/25/19 Range/Units 20:49 20:49 20:49 MCV 105.6 H (80.0-100.0) fL Lymphocytes # 0.6 L (1.0-4.8) k/uL D-Dimer 1.81 H (<0.60) mg/L FEU Sodium 136 L (137-145) mmol/L Creatinine 1.32 H (0.52-1.04) mg/dL Glucose 170 H (74-99) mg/dL Calcium 10.9 H (8.4-10.2) mg/dL Magnesium 1.1 L (1.6-2.3) mg/dL Alkaline Phosphatase 169 H (38-126) U/L C-Reactive Protein 19.5 H (<10.0) mg/L Urine Protein (Negative) Urine Ketones (Negative) Urine Nitrite (Negative) Ur Leukocyte Esterase (Negative) Urine Mucus (None) /hpf 08/25/19 Range/Units 21:30 MCV (80.0-100.0) fL Lymphocytes # (1.0-4.8) k/uL D-Dimer (<0.60) mg/L FEU Sodium (137-145) mmol/L Creatinine (0.52-1.04) mg/dL Glucose (74-99) mg/dL Calcium (8.4-10.2) mg/dL Magnesium (1.6-2.3) mg/dL Alkaline Phosphatase (38-126) U/L C-Reactive Protein (<10.0) mg/L Urine Protein 1+ H (Negative) Urine Ketones 1+ H (Negative) Urine Nitrite Positive H (Negative) Ur Leukocyte Esterase Small H (Negative) Urine Mucus Rare H (None) /hpf Assessment and Plan Plan: Diarrhea, with fever, rule out C. diff -Testing pending -Contact precautions -Begin empiric Vancomycin oral 125 mg QID -IVFs -F/u blood cultures - DALILA -Likely secondary to poor oral intake and dehydration -Monitor BMP -Continue with IV fluids Hypomagnesemia -Replace and monitor Deconditioning -Likely due to poor oral intake and dehydration -PT consult Chronic conditions: Hypertension, hyperlipidemia, Cardizem -Continue with home meds -Hold Ramipril in setting of DALILA DVT prophylaxis -Heparin subq The patient is admitted with an anticipated more than 2 midnight stay for evaluation of Diarrhea CODE STATUS: Full Code Discussed with: Patient Anticipated discharge date: 2-[address]: Home A total of 40 minutes was spent on the care of this complex patient more than 50% of the time was spent in counseling and care coordination.
[2019-08-26] MEDS: VANCOMYCIN ORAL SOLUTION 250 MG/5 ML BOTTLE PO SCH ×2 (05:41→11:44)
[2019-08-26 06:09] LABS: HGB 11.6 gm/dL (11.4-16.0); Hypochromasia Moderate; MCH 33.2 pg (25.0-35.0); MCHC 31.3 g/dL (31.0-37.0); MCV 106.3 fL (80.0-100.0); Macrocytosis Moderate; Mean Platelet Volume 8.5; Platelet Count 151 k/uL (150-450); RBC 3.48 m/uL (3.80-5.40); RDW 13.7 % (11.5-15.5); WBC 3.2 k/uL (3.8-10.6)
[2019-08-26 06:19] LABS: Albumin 2.8 g/dL (3.5-5.0); Calcium 9.4 mg/dL (8.4-10.2); Magnesium 2.4 mg/dL (1.6-2.3); Potassium 3.7 mmol/L (3.5-5.1); Total Bilirubin 0.3 mg/dL (0.2-1.3); Total Protein 5.1 g/dL (6.3-8.2)
[2019-08-26] MEDS: ACETAMINOPHEN TAB 325 MG TAB PO PRN ×2 (09:41→19:41)
[2019-08-26] MEDS: HEPARIN SODIUM,PORCINE 5,000 UNIT/ML 1 ML VIAL SQ SCH ×2 (09:41→15:45)
--- NOTE | 2019-08-26 13:18 | P.PN ---
Progress Note - Text Progress Note Date: 08/26/19 Please refer to H&P for complete documentation. The patient is an 88-year-old female with a PMH of hypertension, duodenal ulcers, diverticulosis, GERD, hyperlipidemia, and hypothyroidism with a recent admission for diverticulitis and localized perforation presented to the ED with complaints of abdominal pain, and diarrhea. The patient reports that following her discharge to home on 08/18, she immediately began having soft "jelly-like" black stools. She underwent an extensive evaluation in the emergency room with CT chest abdomen and pelvis without contrast showing an irregular superior medial left apex mass, concerning for neoplasm versus scarring with a follow-up CT recommended. CT also revealed mild diverticulosis without diverticulitis and bilateral nonobstructing renal stones. Patient was seen and examined. No acute events overnight. Patient reports multiple bouts of diarrhea with black stools since her discharge on 08/19/2019. Patient also reports feeling extremely weak and unable to do her ADLs and IADLs. She does live alone. She denies any chest pain, shortness of breath, palpitations or dizziness. Patient is in no acute distress. C. diff is negative. DC vancomycin. General surgery consulted from previous admission. Continue hydration with normal saline 50 mL per hour for acute kidney injury. Tylenol as needed for fever or chills. Transition diet to low fiber diet. PT and OT consulted for generalized weakness. She is pending clinical improvement. Likely DC in 1-2 days.
--- NOTE | 2019-08-26 14:08 | P.GSCN ---
<Kristi Dozier - Last Filed: 08/26/19 14:03> History of Present Illness Consult date: 08/26/19 Reason for Consult: Diverticulitis with localized perforation Requesting physician: Radhika Jacobs History of present illness: CHIEF COMPLAINT: Diverticulitis with localized perforation HISTORY OF PRESENT ILLNESS: 88 year old female who was recently admitted to hospital from 08/16/2019 until 08/19/2019 secondary to diverticulitis with localized perforation. Patient was discharged home in stable condition. Patient reports she is doing well at home but then began feeling progressively more weak and having diarrhea. Patient examined at the bedside by Dr. Goldstein. Patient states her diarrhea has resolved. She denies abdominal pain. She denies nausea or vomiting. She reports eating a sandwich earlier and tolerated well. PAST MEDICAL HISTORY: See list. PAST SURGICAL HISTORY: See list. MEDICATIONS: See list. ALLERGIES: See list. SOCIAL HISTORY: Current tobacco user. Daily alcohol use. REVIEW OF SYSTEMS: CONSTITUTIONAL: Denies fever or chills. HEENT: Denies blurred vision, vision changes, or eye pain. Denies hemoptysis ENDOCRINE: Denies heat or cold intolerance. CARDIOVASCULAR: Denies chest pain or pressure. RESPIRATORY: No shortness of breath. GASTROINTESTINAL: See HPI for pertinent findings NEURO: Denies history of seizures. PSYCH: History of panic disorder and PTSD. HEMATOLOGIC: Denies bleeding disorders. LYMPHATIC: The patient denies any lumps and bumps around the neck. GENITOURINARY: Denies any blood in urine or increased urinary frequency. MUSCULOSKELETAL: Denies myalgias. Denies joint swelling. Denies decreased range of motion beyond patients baseline. SKIN: Denies pruitis. Denies rash. PHYSICAL EXAM: VITAL SIGNS: Reviewed GENERAL: Well-developed in no acute distress. HEENT: No sclera icterus. Extraocular movements grossly intact. Moist buccal mucosa. Head is atraumatic, normocephalic. Hears conversational speech. No nasal drainage. NECK: Supple without lymphadenopathy. CHEST: Non-labored respirations and equal bilateral excursions. CARDIOVASCULAR: Regular rate with regular rhythm. Palpable 2+ radial pulses. ABDOMEN: Soft. Nondistended. Nontender MUSCULOSKELETAL: No clubbing or cyanosis. NEUROLOGIC: No focal or lateralizing signs. Cranial nerves II through XII grossly intact. PSYCH: Appropriate affect. Alert and oriented to person, place and time. SKIN: Well perfused. Good skin turgor. LABORATORY DATA: WBC 3.2. Hemoglobin 11.6. Platelet count 151. Sodium 133. Potassium 3.7. BUN 11. Creatinine 1.09. Lactic acid 1.4. CDiff negative IMAGING: CT abdomen and pelvis: Loops of bowel with matter and pelvis are normal. Few d iverticular changes within the sigmoid colon. No adjacent inflammatory changes to suggest acute diverticulitis are evident. No free air. ASSESSMENT: 1. Diarrhea, resolved 2. Recent admission secondary to diverticulitis with localized perforation PLAN: -Cdiff negative. Will discontinue vancomycin. -No need for antibiotics at this time -May continue low fiber diet at this time -No surgical intervention recommended at this time Nurse practitioner note has been reviewed by physician. Signing provider agrees with the documented findings, assessment, and plan of care. Past Medical History Past Medical History: Hyperlipidemia, Hypertension, Osteoarthritis (OA), Sleep Apnea/CPAP/BIPAP, Thyroid Disorder Additional Past Medical History / Comment(s): rls, arthritis in hands, GERD, gastric ulcer, past uterine fibroids, nephrolithiasis History of Any Multi-Drug Resistant Organisms: None Reported, ESBL Year Discovered:: 08/24/17 MDRO Source:: URINE Past Surgical History: Adenoidectomy, Appendectomy, Hysterectomy, Tonsillectomy Additional Past Surgical History / Comment(s): Strabismus correction. cataracts- lens implants, blepharoplasty, lithotripsy Past Anesthesia/Blood Transfusion Reactions: No Reported Reaction Past Psychological History: Panic Disorder, PTSD Additional Psychological History / Comment(s): pt is . lives alone in single level home. has life alert. uses cane when up. has a cleaning service. drives. Smoking Status: Current every day smoker Past Alcohol Use History: Daily Additional Past Alcohol Use History / Comment(s): started smoking at age 21, currently smokes 2-3 cig/day and has 1-2 coctails at night Past Drug Use History: None Reported - Past Family History Father Additional Family Medical History / Comment(s): cardiac problems Mother Additional Family Medical History / Comment(s): mom fom old age Medications and Allergies Home Medications Medication Instructions Recorded Confirmed Type Cholecalciferol [Vitamin D3 (25 2,000 unit PO DAILY 08/24/17 08/25/19 History Mcg = 1000 Iu)] Acetaminophen Tab [Tylenol] 650 mg PO Q6HR PRN tab 08/27/17 08/25/19 Rx Acetaminophen/Diphenhydramine 1 tab PO HS 08/15/19 08/25/19 History [Tylenol Pm Ex-Strength Caplet] HYDROcodone/APAP 5-325MG [[place] 1 tab PO BID PRN 08/15/19 08/25/19 History 5-325] Ketoconazole 2% Cream [Nizoral 2%] 1 applic TOPICAL BID 08/15/19 08/25/19 History Ramipril 2.5 mg PO DAILY 08/15/19 08/25/19 History clonazePAM [KlonoPIN] 1 mg PO HS 08/15/19 08/25/19 History rOPINIRole HCL [Requip] 0.375 mg PO HS 08/15/19 08/25/19 History Levofloxacin [Levaquin] 500 mg PO DAILY 7 Days #7 tab 08/19/19 08/25/19 Rx metroNIDAZOLE [Flagyl] 500 mg PO TID #21 tab 08/19/19 08/25/19 Rx Allergies Allergy/AdvReac Type Severity Reaction Status Date / Time No Known Allergies Allergy Verified 08/25/19 22:36 Surgical - Exam Vital Signs Temp Pulse Resp BP Pulse Ox 101.1 F H 96 20 176/86 96 08/25/19 20:35 08/25/19 20:35 08/25/19 20:35 08/25/19 20:35 08/25/19 20:35 Results - Labs 08/26/19 05:37 08/26/19 05:37 Abnormal Lab Results - Last 24 Hours (Table) 08/25/19 08/25/19 08/25/19 Range/Units 20:49 20:49 20:49 WBC (3.8-10.6) k/uL RBC (3.80-5.40) m/uL MCV 105.6 H (80.0-100.0) fL Lymphocytes # 0.6 L (1.0-4.8) k/uL D-Dimer 1.81 H (<0.60) mg/L FEU Sodium 136 L (137-145) mmol/L Creatinine 1.32 H (0.52-1.04) mg/dL Glucose 170 H (74-99) mg/dL Calcium 10.9 H (8.4-10.2) mg/dL Magnesium 1.1 L (1.6-2.3) mg/dL AST (14-36) U/L Alkaline Phosphatase 169 H (38-126) U/L C-Reactive Protein 19.5 H (<10.0) mg/L Total Protein (6.3-8.2) g/dL Albumin (3.5-5.0) g/dL Procalcitonin (0.02-0.09) ng/mL Urine Protein (Negative) Urine Ketones (Negative) Urine Nitrite (Negative) Ur Leukocyte Esterase (Negative) Urine Mucus (None) /hpf 08/25/19 08/25/19 08/26/19 Range/Units 20:49 21:30 05:37 WBC 3.2 L (3.8-10.6) k/uL RBC 3.48 L (3.80-5.40) m/uL MCV 106.3 H (80.0-100.0) fL Lymphocytes # (1.0-4.8) k/uL D-Dimer (<0.60) mg/L FEU Sodium (137-145) mmol/L Creatinine (0.52-1.04) mg/dL Glucose (74-99) mg/dL Calcium (8.4-10.2) mg/dL Magnesium (1.6-2.3) mg/dL AST (14-36) U/L Alkaline Phosphatase (38-126) U/L C-Reactive Protein (<10.0) mg/L Total Protein (6.3-8.2) g/dL Albumin (3.5-5.0) g/dL Procalcitonin 0.20 H (0.02-0.09) ng/mL Urine Protein 1+ H (Negative) Urine Ketones 1+ H (Negative) Urine Nitrite Positive H (Negative) Ur Leukocyte Esterase Small H (Negative) Urine Mucus Rare H (None) /hpf 08/26/19 Range/Units 05:37 WBC (3.8-10.6) k/uL RBC (3.80-5.40) m/uL MCV (80.0-100.0) fL Lymphocytes # (1.0-4.8) k/uL D-Dimer (<0.60) mg/L FEU Sodium 133 L (137-145) mmol/L Creatinine 1.09 H (0.52-1.04) mg/dL Glucose 118 H (74-99) mg/dL Calcium (8.4-10.2) mg/dL Magnesium 2.4 H (1.6-2.3) mg/dL AST 159 H (14-36) U/L Alkaline Phosphatase 257 H (38-126) U/L C-Reactive Protein (<10.0) mg/L Total Protein 5.1 L (6.3-8.2) g/dL Albumin 2.8 L (3.5-5.0) g/dL Procalcitonin (0.02-0.09) ng/mL Urine Protein (Negative) Urine Ketones (Negative) Urine Nitrite (Negative) Ur Leukocyte Esterase (Negative) Urine Mucus (None) /hpf Diabetes panel 08/25/19 08/26/19 Range/Units 20:49 05:37 Sodium 136 L 133 L (137-145) mmol/L Potassium 4.5 3.7 (3.5-5.1) mmol/L Chloride 102 105 (98-107) mmol/L Carbon Dioxide 26 25 (22-30) mmol/L BUN 13 11 (7-17) mg/dL Creatinine 1.32 H 1.09 H (0.52-1.04) mg/dL Glucose 170 H 118 H (74-99) mg/dL Calcium 10.9 H 9.4 (8.4-10.2) mg/dL AST 28 159 H (14-36) U/L ALT 17 32 (4-34) U/L Alkaline Phosphatase 169 H 257 H (38-126) U/L Total Protein 6.4 5.1 L (6.3-8.2) g/dL Albumin 3.7 2.8 L (3.5-5.0) g/dL Calcium panel 08/25/19 08/26/19 Range/Units 20:49 05:37 Calcium 10.9 H 9.4 (8.4-10.2) mg/dL Albumin 3.7 2.8 L (3.5-5.0) g/dL Pituitary panel 08/25/19 08/26/19 Range/Units 20:49 05:37 Sodium 136 L 133 L (137-145) mmol/L Potassium 4.5 3.7 (3.5-5.1) mmol/L Chloride 102 105 (98-107) mmol/L Carbon Dioxide 26 25 (22-30) mmol/L BUN 13 11 (7-17) mg/dL Creatinine 1.32 H 1.09 H (0.52-1.04) mg/dL Glucose 170 H 118 H (74-99) mg/dL Calcium 10.9 H 9.4 (8.4-10.2) mg/dL Adrenal panel 08/25/19 08/26/19 Range/Units 20:49 05:37 Sodium 136 L 133 L (137-145) mmol/L Potassium 4.5 3.7 (3.5-5.1) mmol/L Chloride 102 105 (98-107) mmol/L Carbon Dioxide 26 25 (22-30) mmol/L BUN 13 11 (7-17) mg/dL Creatinine 1.32 H 1.09 H (0.52-1.04) mg/dL Glucose 170 H 118 H (74-99) mg/dL Calcium 10.9 H 9.4 (8.4-10.2) mg/dL Total Bilirubin 0.4 0.3 (0.2-1.3) mg/dL AST 28 159 H (14-36) U/L ALT 17 32 (4-34) U/L Alkaline Phosphatase 169 H 257 H (38-126) U/L Total Protein 6.4 5.1 L (6.3-8.2) g/dL Albumin 3.7 2.8 L (3.5-5.0) g/dL <Criss Goldstein N - Last Filed: 08/26/19 15:08> History of Present Illness History of present illness: Patient seen and evaluated. CT of the abdomen pelvis independently reviewed by me. No features of perforated diverticulitis. No inflammatory changes in the pelvis identified. Gallbladder moderately distended but questionable features o f gallstones. Otherwise, patient able to tolerate regular diet. She reports no abdominal pain. Continue conservative management with IV fluid hydration. Agreeable with discontinue antibiotics as diarrhea resolved. Surgical - Exam Vital Signs Temp Pulse Resp BP Pulse Ox 101.1 F H 96 20 176/86 96 08/25/19 20:35 08/25/19 20:35 08/25/19 20:35 08/25/19 20:35 08/25/19 20:35 Results - Labs 08/26/19 05:37 08/26/19 05:37 Abnormal Lab Results - Last 24 Hours (Table) 08/25/19 08/25/19 08/25/19 Range/Units 20:49 20:49 20:49 WBC (3.8-10.6) k/uL RBC (3.80-5.40) m/uL MCV 105.6 H (80.0-100.0) fL Lymphocytes # 0.6 L (1.0-4.8) k/uL D-Dimer 1.81 H (<0.60) mg/L FEU Sodium 136 L (137-145) mmol/L Creatinine 1.32 H (0.52-1.04) mg/dL Glucose 170 H (74-99) mg/dL Calcium 10.9 H (8.4-10.2) mg/dL Magnesium 1.1 L (1.6-2.3) mg/dL AST (14-36) U/L Alkaline Phosphatase 169 H (38-126) U/L C-Reactive Protein 19.5 H (<10.0) mg/L Total Protein (6.3-8.2) g/dL Albumin (3.5-5.0) g/dL Procalcitonin (0.02-0.09) ng/mL Urine Protein (Negative) Urine Ketones (Negative) Urine Nitrite (Negative) Ur Leukocyte Esterase (Negative) Urine Mucus (None) /hpf 08/25/19 08/25/19 08/26/19 Range/Units 20:49 21:30 05:37 WBC 3.2 L (3.8-10.6) k/uL RBC 3.48 L (3.80-5.40) m/uL MCV 106.3 H (80.0-100.0) fL Lymphocytes # (1.0-4.8) k/uL D-Dimer (<0.60) mg/L FEU Sodium (137-145) mmol/L Creatinine (0.52-1.04) mg/dL Glucose (74-99) mg/dL Calcium (8.4-10.2) mg/dL Magnesium (1.6-2.3) mg/dL AST (14-36) U/L Alkaline Phosphatase (38-126) U/L C-Reactive Protein (<10.0) mg/L Total Protein (6.3-8.2) g/dL Albumin (3.5-5.0) g/dL Procalcitonin 0.20 H (0.02-0.09) ng/mL Urine Protein 1+ H (Negative) Urine Ketones 1+ H (Negative) Urine Nitrite Positive H (Negative) Ur Leukocyte Esterase Small H (Negative) Urine Mucus Rare H (None) /hpf 08/26/19 Range/Units 05:37 WBC (3.8-10.6) k/uL RBC (3.80-5.40) m/uL MCV (80.0-100.0) fL Lymphocytes # (1.0-4.8) k/uL D-Dimer (<0.60) mg/L FEU Sodium 133 L (137-145) mmol/L Creatinine 1.09 H (0.52-1.04) mg/dL Glucose 118 H (74-99) mg/dL Calcium (8.4-10.2) mg/dL Magnesium 2.4 H (1.6-2.3) mg/dL AST 159 H (14-36) U/L Alkaline Phosphatase 257 H (38-126) U/L C-Reactive Protein (<10.0) mg/L Total Protein 5.1 L (6.3-8.2) g/dL Albumin 2.8 L (3.5-5.0) g/dL Procalcitonin (0.02-0.09) ng/mL Urine Protein (Negative) Urine Ketones (Negative) Urine Nitrite (Negative) Ur Leukocyte Esterase (Negative) Urine Mucus (None) /hpf Diabetes panel 08/25/19 08/26/19 Range/Units 20:49 05:37 Sodium 136 L 133 L (137-145) mmol/L Potassium 4.5 3.7 (3.5-5.1) mmol/L Chloride 102 105 (98-107) mmol/L Carbon Dioxide 26 25 (22-30) mmol/L BUN 13 11 (7-17) mg/dL Creatinine 1.32 H 1.09 H (0.52-1.04) mg/dL Glucose 170 H 118 H (74-99) mg/dL Calcium 10.9 H 9.4 (8.4-10.2) mg/dL AST 28 159 H (14-36) U/L ALT 17 32 (4-34) U/L Alkaline Phosphatase 169 H 257 H (38-126) U/L Total Protein 6.4 5.1 L (6.3-8.2) g/dL Albumin 3.7 2.8 L (3.5-5.0) g/dL Calcium panel 08/25/19 08/26/19 Range/Units 20:49 05:37 Calcium 10.9 H 9.4 (8.4-10.2) mg/dL Albumin 3.7 2.8 L (3.5-5.0) g/dL Pituitary panel 08/25/19 08/26/19 Range/Units 20:49 05:37 Sodium 136 L 133 L (137-145) mmol/L Potassium 4.5 3.7 (3.5-5.1) mmol/L Chloride 102 105 (98-107) mmol/L Carbon Dioxide 26 25 (22-30) mmol/L BUN 13 11 (7-17) mg/dL Creatinine 1.32 H 1.09 H (0.52-1.04) mg/dL Glucose 170 H 118 H (74-99) mg/dL Calcium 10.9 H 9.4 (8.4-10.2) mg/dL Adrenal panel 08/25/19 08/26/19 Range/Units 20:49 05:37 Sodium 136 L 133 L (137-145) mmol/L Potassium 4.5 3.7 (3.5-5.1) mmol/L Chloride 102 105 (98-107) mmol/L Carbon Dioxide 26 25 (22-30) mmol/L BUN 13 11 (7-17) mg/dL Creatinine 1.32 H 1.09 H (0.52-1.04) mg/dL Glucose 170 H 118 H (74-99) mg/dL Calcium 10.9 H 9.4 (8.4-10.2) mg/dL Total Bilirubin 0.4 0.3 (0.2-1.3) mg/dL AST 28 159 H (14-36) U/L ALT 17 32 (4-34) U/L Alkaline Phosphatase 169 H 257 H (38-126) U/L Total Protein 6.4 5.1 L (6.3-8.2) g/dL Albumin 3.7 2.8 L (3.5-5.0) g/dL
[2019-08-26] MEDS: SODIUM CHLORIDE 0.9% 1,000 ML IV SCH (15:43)
[2019-08-26] MEDS: clonazePAM 1 MG TAB PO SCH (20:27)
[2019-08-26] MEDS ORDERED: diphenhydrAMINE 25 MG CAP PO PRN (23:12)
[2019-08-26] MEDS ORDERED: diphenhydrAMINE 25 MG CAP PO STA (23:15)
[2019-08-27] MEDS: HEPARIN SODIUM,PORCINE 5,000 UNIT/ML 1 ML VIAL SQ SCH ×3 (01:31→18:21)
[2019-08-27] MEDS: SODIUM CHLORIDE 0.9% 1,000 ML IV SCH (09:38)
--- NOTE | 2019-08-27 14:24 | P.PN ---
Subjective Progress Note Date: 08/27/19 CHIEF COMPLAINT: Diverticulitis HISTORY OF PRESENT ILLNESS: The patient is a 88-year-old female readmitted secondary to intractable diarrhea and abdominal pain. She was readmitted after initial hospitalization of perforated diverticulitis. Since admission, she is mobile within her room. She lives independently. No fevers or chills. No abdominal pain. She is tolerating regular diet. ROS: No reports of nausea and vomiting. No fevers or chills. No new chest pain. No productive sputum PHYSICAL EXAM: VITAL SIGNS: Reviewed CONSTITUTIONAL: Well developed and in no acute distress. EYES: Conjuctivae without sclera icterus. Extraocular movements grossly intact. HEAD, EARS, NOSE, THROAT: Moist buccal mucosa. Head is atraumatic, normocephalic. Hears conversational speech. No nasal drainage. NECK: Supple. No thyroidomegaly. RESPIRATORY: Non-labored respirations and equal bilateral excursions. CARDIOVASCULAR: Palpable 2+ radial pulses. ABDOMEN: Soft. Nontender. MUSCULOSKELETAL: No gross deformity of the lower extremities noted. No clubbing. No cyanosis. SKIN: Good skin turgor. Well perfused. NEUROLOGIC: Cranial nerves I through XII grossly intact. No focal or lateralizi ng signs. PSYCH: Appropriate affect. Alert and oriented to person, place and time. CLINICAL LABS: White blood cell count normal. AST elevated 28-159. Alkaline phosphatase elevated 169-257 ASSESSMENT: 1. History of perforated diverticulitis, improving 2. New elevated liver enzymes PLAN: 1. She has new elevated liver enzymes. Previous records reviewed without any findings of ultrasound of the liver or gallbladder. Recommend ultrasound of the gallbladder. 2. At this time continue current diet Objective - Vital Signs Vital signs: Vital Signs Temp 99.4 F 08/27/19 07:00 Pulse 90 08/27/19 07:00 Resp 16 08/27/19 08:15 BP 167/88 08/27/19 07:00 Pulse Ox 97 08/27/19 07:00 Intake & Output 08/26/19 08/27/19 08/27/19 18:59 06:59 18:59 Intake Total 550 100 100 Balance 550 100 100 Intake: Intake, IV Titration 450 Amount Sodium Chloride 0.9% 1, 450 000 ml @ 75 mls/hr IV . [id number] ONE Rx#:[id number] Oral 100 100 100 Other: Voiding Method Toilet Toilet # Voids 1 1 - Labs CBC & Chem 7: 08/26/19 05:37 08/26/19 05:37 Labs: Microbiology - Last 24 Hours (Table) 08/25/19 20:49 Blood Culture - Preliminary Blood No Growth after 24 hours Assessment and Plan (1) Elevated liver enzymes Current Visit: Yes Status: Acute Code(s): R74.8 - ABNORMAL LEVELS OF OTHER SERUM ENZYMES SNOMED Code(s): 329574900 (2) Generalized weakness Current Visit: Yes Status: Acute Code(s): R53.1 - WEAKNESS SNOMED Code(s): 03241080 (3) Diverticulitis of intestine with perforation Current Visit: No Status: Acute Code(s): K57.80 - DVTRCLI OF INTEST, PART UNSP, W PERF AND ABSCESS W/O BLEED SNOMED Code(s): 786102825
--- NOTE | 2019-08-27 15:18 | P.PN ---
Subjective Progress Note Date: 08/27/19 Principal diagnosis: Diarrhea, weakness Patient was seen and examined. No acute events overnight. Patient reports improvement in her diarrhea, liquid bowel movement this morning. She continues to complain of weakness, generalized. She denies any chest pain, shortness of breath or palpitations. No nausea or vomiting. Ate dinner yesterday without any difficulties. She denies any abdominal pain, dysuria or difficulty urinating. Objective - Vital Signs Vital signs: Vital Signs Temp 99.4 F 08/27/19 07:00 Pulse 90 08/27/19 07:00 Resp 16 08/27/19 08:15 BP 167/88 08/27/19 07:00 Pulse Ox 97 08/27/19 07:00 Intake & Output 08/26/19 08/27/19 08/27/19 18:59 06:59 18:59 Intake Total 550 100 100 Balance 550 100 100 Intake: Intake, IV Titration 450 Amount Sodium Chloride 0.9% 1, 450 000 ml @ 75 mls/hr IV . [id number] Rx#:[id number] Oral 100 100 100 Other: Voiding Method Toilet Toilet # Voids 1 1 2 - Exam General: [non toxic], [no distress], [appears at stated age] Derm: [warm], [dry] Head: [atraumatic], [normocephalic], [symmetric] Eyes: [EOMI], [no lid lag], [anicteric sclera] Mouth: [no lip lesion], [mucus membranes moist] Cardiovascular: [S1S2 reg], [no murmur], [positive posterior tibial pulse bilateral], Lungs: [CTA bilateral], [no rhonchi, no rales] , [no accessory muscle use] Abdominal: [soft], [ nontender to palpation], [no guarding], [no appreciable organomegaly] Ext: [no gross muscle atrophy], [no edema], [no contractures] Neuro: [no focal neuro deficits] Psych: [Alert], [oriented], [appropriate affect] - Labs CBC & Chem 7: 08/26/19 05:37 08/26/19 05:37 Labs: Microbiology - Last 24 Hours (Table) 08/25/19 20:49 Blood Culture - Preliminary Blood No Growth after 24 hours Assessment and Plan Assessment: Diarrhea, with history of diverticulitis and microperforation -C. diff negative -Contact precautions -Vancomycin discontinued -IVFs -Low fiber diet -F/u blood cultures, currently negative Abnormal UA -Positive nitrite and small leukocyte esterase -Patient asymptomatic and does not warrant antibiotic treatment at this time -Follow urine culture Elevated AST -Gallbladder ultrasound ordered by surgery DALILA -Likely secondary to poor oral intake and dehydration -Monitor BMP -Continue with IV fluids Hypomagnesemia -Replace and monitor Deconditioning -Likely due to poor oral intake and dehydration -PT consult, patient would prefer to go home Chronic conditions: Hypertension, hyperlipidemia, Cardizem -Continue with home meds -Hold Ramipril in setting of DALILA DVT prophylaxis -Heparin subq [Patient is pending clinical improvement. Working with physical therapy. Likely DC in 1-2 days.]
[2019-08-27] MEDS: clonazePAM 1 MG TAB PO SCH (20:51)
[2019-08-27] MEDS: ACETAMINOPHEN TAB 325 MG TAB PO PRN (20:53)
[2019-08-28] MEDS: HEPARIN SODIUM,PORCINE 5,000 UNIT/ML 1 ML VIAL SQ SCH ×4 (01:21→23:41)
[2019-08-28] MEDS: SODIUM CHLORIDE 0.9% 1,000 ML IV SCH (06:49)
[2019-08-28] MEDS: ACETAMINOPHEN TAB 325 MG TAB PO PRN (08:57)
--- NOTE | 2019-08-28 09:40 | US ---
EXAMINATION TYPE: US gallbladder DATE OF EXAM: 08/28/2019 COMPARISON: NONE CLINICAL HISTORY: elevated liver enzymes. EXAM MEASUREMENTS: Liver Length: 16.7 cm Gallbladder Wall: 0.2 cm CBD: obscured Right Kidney: 9.1 x 4.5 x 4.3 cm Technically difficult study due to extensive overlying bowel content. Pancreas: Obscured by bowel gas Liver: portions visualizes wnl, partially obscured by overlying bowel contene Gallbladder: hydropic, stones and probable sludge Evidence for sonographic Kelsey's sign: no CBD: Obscured by overlying bowel gas Right Kidney: Partially obscured by overlying bowel gas The pancreas is not visualized. The liver is normal in size without biliary dilatation. The gallbladder is hydropic. There is sludge within the gallbladder. Gallbladder wall measures 2 mm. The distal common hepatic duct was not visualized. The right kidney is unremarkable. IMPRESSION: HYDROPIC GALLBLADDER CONTAINING SLUDGE.
--- NOTE | 2019-08-28 10:40 | XR ---
EXAMINATION TYPE: XR chest 1V portable DATE OF EXAM: 08/28/2019 HISTORY: fever. REFERENCE: Previous study dated 08/25/2019. FINDINGS: Heart size upper limits of normal. The lungs are clear. There is blunting of the left CP an gle. I could not exclude a tiny left effusion. IMPRESSION: I CANNOT EXCLUDE A TINY LEFT EFFUSION.
--- NOTE | 2019-08-28 15:14 | P.PN ---
Subjective Progress Note Date: 08/28/19 Principal diagnosis: Diarrhea, weakness Patient was seen and examined. No acute events overnight. Patient reports improvement in her diarrhea, semi-solid bowel movement this morning. She continues to complain of weakness, generalized, difficulties getting off the commode. She denies any chest pain, shortness of breath or palpitations. No nausea or vomiting. She denies any abdominal pain, dysuria or difficulty urinating. Objective - Vital Signs Vital signs: Vital Signs Temp 100.3 F H 08/28/19 07:00 Pulse 85 08/28/19 07:00 Resp 18 08/28/19 07:00 BP 161/81 08/28/19 07:00 Pulse Ox 95 08/28/19 07:00 Intake & Output 08/27/19 08/28/19 08/28/19 18:59 06:59 18:59 Intake Total 100 400 200 Balance 100 400 200 Intake: Intake, IV Titration 400 Amount Sodium Chloride 0.9% 1, 400 000 ml @ 50 mls/hr IV . Q20H [facility] Rx#:[id number] Oral 100 200 Other: Voiding Method Toilet Toilet # Voids 2 1 3 # Bowel Movements 1 - Exam General: [non toxic], [no distress], [appears at stated age] Derm: [warm], [dry] Head: [atraumatic], [normocephalic], [symmetric] Eyes: [EOMI], [no lid lag], [anicteric sclera] Mouth: [no lip lesion], [mucus membranes moist] Cardiovascular: [S1S2 reg], [no murmur], [positive posterior tibial pulse bilateral], Lungs: [CTA bilateral], [no rhonchi, no rales] , [no accessory muscle use] Abdominal: [soft], [ nontender to palpation], [no guarding], [no appreciable organomegaly] Ext: [no gross muscle atrophy], [no edema], [no contractures] Neuro: [no focal neuro deficits] Psych: [Alert], [oriented], [appropriate affect] - Labs CBC & Chem 7: 08/26/19 05:37 08/26/19 05:37 Labs: Microbiology - Last 24 Hours (Table) 08/25/19 20:49 Blood Culture - Preliminary Blood No Growth after 48 hours Assessment and Plan Assessment: Diarrhea, with history of diverticulitis and microperforation -C. diff negative -Contact precautions -Vancomycin discontinued -IVFs -Low fiber diet -F/u blood cultures, currently negative UTI -Positive nitrite and small leukocyte esterase -Given her fever and symptoms of generalized weakness, start Rocephin for treatment of UTI. -Follow urine culture, discussed with RN regarding collection Elevated AST -Gallbladder ultrasound shows hydropic gallbladder containing sludge -Follow surgery consultation DALILA -Likely secondary to poor oral intake and dehydration -Monitor BMP -Continue with IV fluids Hypomagnesemia -Replace and monitor Deconditioning -Likely due to poor oral intake and dehydration -PT consult, patient would prefer to go home Chronic conditions: Hypertension, hyperlipidemia, Cardizem -Continue with home meds -Hold Ramipril in setting of DALILA DVT prophylaxis -Heparin subq [Patient is pending clinical improvement. Working with physical therapy. Likely DC in 1-2 days.]
--- NOTE | 2019-08-28 16:39 | P.PN ---
Subjective Progress Note Date: 08/28/19 CHIEF COMPLAINT: Diverticulitis HISTORY OF PRESENT ILLNESS: The patient is a 88-year-old female readmitted secondary to intractable diarrhea and abdominal pain. She was readmitted after initial hospitalization of perforated diverticulitis. She had abnormal liver enzymes which prompted additional studies. She also reports prior history of right upper quadrant epigastric abdominal pain which has improved. She reports having a new fever which is currently being further evaluated. ROS: No reports of nausea and vomiting. No new chest pain. No productive sputum. T-max 100.3. PHYSICAL EXAM: VITAL SIGNS: Reviewed CONSTITUTIONAL: Well developed and in no acute distress. EYES: Conjuctivae without sclera icterus. Extraocular movements grossly intact. HEAD, EARS, NOSE, THROAT: Moist buccal mucosa. Head is atraumatic, normocephalic. Hears conversational speech. No nasal drainage. NECK: Supple. No thyroidomegaly. RESPIRATORY: Non-labored respirations and equal bilateral excursions. CARDIOVASCULAR: Palpable 2+ radial pulses. ABDOMEN: Soft. Nontender. MUSCULOSKELETAL: No gross deformity of the lower extremities noted. No clubbing. No cyanosis. SKIN: Good skin turgor. Well perfused. NEUROLOGIC: Cranial nerves I through XII grossly intact. No focal or lateralizing signs. PSYCH: Appropriate affect. Alert and oriented to person, place and time. CLINICAL LABS: White blood cell count normal. AST elevated 28-159. Alkaline phosphatase elevated 169-257 from yesterday. No new labs. STUDIES: Ultrasound of the gallbladder independent reviewed demonstrating gallstones. RADIOLOGY: Radiology report of gallbladder also confirms no evidence of Kelsey signs or acute cholecystitis. Gallbladder distended. ASSESSMENT: 1. History of perforated diverticulitis, improving 2. New elevated liver enzymes 3. Gallstones. PLAN: 1. Clinically, she reports improvement of her abdominal pain. 2. Recommend low-fat diet and consultation dietitian for gallstone diet. 3. She has new fevers including chest x-ray being obtained. 4. Recommend pulmonary toilet with incentive spirometer Objective - Vital Signs Vital signs: Vital Signs Temp 100.3 F H 08/28/19 07:00 Pulse 85 08/28/19 07:00 Resp 18 08/28/19 07:00 BP 161/81 08/28/19 07:00 Pulse Ox 95 08/28/19 07:00 Intake & Output 08/27/19 08/28/19 08/28/19 18:59 06:59 18:59 Intake Total 100 400 200 Balance 100 400 200 Intake: Intake, IV Titration 400 Amount Sodium Chloride 0.9% 1, 400 000 ml @ 50 mls/hr IV . Q20H [facility] Rx#:[id number] Oral 100 200 Other: Voiding Method Toilet Toilet # Voids 2 1 3 # Bowel Movements 1 - Labs CBC & Chem 7: 08/26/19 05:37 08/26/19 05:37 Labs: Microbiology - Last 24 Hours (Table) 08/25/19 20:49 Blood Culture - Preliminary Blood No Growth after 48 hours Assessment and Plan (1) Elevated liver enzymes Current Visit: Yes Status: Acute Code(s): R74.8 - ABNORMAL LEVELS OF OTHER SERUM ENZYMES SNOMED Code(s): 893034035 (2) Generalized weakness Current Visit: Yes Status: Acute Code(s): R53.1 - WEAKNESS SNOMED Code(s): 72293334 (3) Diverticulitis of intestine with perforation Current Visit: No Status: Acute Code(s): K57.80 - DVTRCLI OF INTEST, PART UNSP, W PERF AND ABSCESS W/O BLEED SNOMED Code(s): 180922399
[2019-08-28] MEDS: clonazePAM 1 MG TAB PO SCH (21:56)
[2019-08-29] MEDS: SODIUM CHLORIDE 0.9% 1,000 ML IV SCH (05:22)
[2019-08-29] MEDS: HEPARIN SODIUM,PORCINE 5,000 UNIT/ML 1 ML VIAL SQ SCH (07:57)
[2019-08-29 08:10] VITALS: BP 161/81; PULSE 68; RESP 16; TEMP 98.8
[2019-08-29 09:01] LABS: Albumin 2.7 g/dL (3.5-5.0); Calcium 8.5 mg/dL (8.4-10.2); Potassium 3.6 mmol/L (3.5-5.1); Total Bilirubin 0.2 mg/dL (0.2-1.3); Total Protein 5.3 g/dL (6.3-8.2)
[2019-08-29 09:06] LABS: HCT 35.7 % (34.0-46.0); HGB 11.7 gm/dL (11.4-16.0); Hypochromasia Slight; MCH 33.8 pg (25.0-35.0); MCHC 32.6 g/dL (31.0-37.0); MCV 103.7 fL (80.0-100.0); Macrocytosis Slight; Mean Platelet Volume 9.1; Platelet Count 144 k/uL (150-450); RBC 3.45 m/uL (3.80-5.40); RDW 14.1 % (11.5-15.5); WBC 3.8 k/uL (3.8-10.6)
[2019-08-29 10:01] LABS: Lymphocytes # (M) 0.87 k/uL (1.0-4.8); Metamyelocytes # (M) 0.04 k/uL (0); Monocytes # (M) 0.34 k/uL (0-1.0); Neutrophils # (M) 2.55 k/uL (1.3-7.7); Neutrophils % (M) 67 %; Nucleated Red Blood Cells 0 /100 WBC (0-0); Total Cells Counted 100
[2019-08-29 10:02] LABS: Eosinophils # (M) 0.04 k/uL (0-0.7)
[2019-08-29 10:03] LABS: Anisocytosis (M) Present; Poikilocytosis (M) Present
--- NOTE | 2019-08-29 10:54 | P.PN ---
Subjective Progress Note Date: 08/29/19 CHIEF COMPLAINT: Diverticulitis with localized perforation HISTORY OF PRESENT ILLNESS: Patient examined this morning at the bedside. She denies abdominal pain. Denies nausea or vomiting. Tolerating diet. Reports passing flatus and having bowel movements. WBC 3.8. Bilirubin 0.2. AST 34. ALT 20. Vital signs stable. VITAL SIGNS: Reviewed. GENERAL: Well-developed in no acute distress. HEENT: No sclera icterus. Extraocular movements grossly intact. Moist buccal mucosa. Head is atraumatic, normocephalic. ABDOMEN: Soft. Nondistended. Nontender. NEUROLOGIC: Alert and oriented. Cranial nerves II through XII grossly intact. ASSESSMENT: 1. Diarrhea, resolved 2. Recent admission secondary to diverticulitis with localized perforation 3. Gallstones PLAN: -Continue low-fat diet -No surgical intervention recommended at this time -Patient may follow up outpatient with Dr. Ward Nurse practitioner note has been reviewed by physician. Signing provider agrees with the documented findings, assessment, and plan of care. Objective - Vital Signs Vital signs: Vital Signs Temp 98.8 F 08/29/19 07:00 Pulse 68 08/29/19 08:03 Resp 16 08/29/19 08:03 BP 161/81 08/29/19 07:00 Pulse Ox 98 08/29/19 07:00 Intake & Output 08/28/19 08/29/19 08/29/19 18:59 06:59 18:59 Intake Total 300 800 Balance 300 800 Intake: Intake, IV Titration 800 Amount Sodium Chloride 0.9% 1, 800 000 ml @ 50 mls/hr IV . Q20H [facility] Rx#:[id number] Oral 300 Other: Voiding Method Toilet Toilet # Voids 3 1 - Labs CBC & Chem 7: 08/29/19 08:32 08/29/19 08:32 Labs: Abnormal Lab Results - Last 24 Hours (Table) 08/29/19 08/29/19 Range/Units 08:32 08:32 RBC 3.45 L (3.80-5.40) m/uL MCV 103.7 H (80.0-100.0) fL Plt Count 144 L (150-450) k/uL Lymphocytes # (Manual) 0.87 L (1.0-4.8) k/uL Metamyelocytes # (Man) 0.04 H (0) k/uL Glucose 106 H (74-99) mg/dL Alkaline Phosphatase 218 H (38-126) U/L Total Protein 5.3 L (6.3-8.2) g/dL Albumin 2.7 L (3.5-5.0) g/dL Microbiology - Last 24 Hours (Table) 08/25/19 20:49 Blood Culture - Preliminary Blood No Growth after 72 hours 08/28/19 11:25 Urine Culture - Preliminary Urine,Clean Catch
[2019-08-29 12:21] VITALS: BMI 25.0
--- NOTE | 2019-08-29 16:36 | P.DS ---
Providers Date of admission: 08/25/19 23:09 Expected date of discharge: 08/29/19 Attending physician: Hai Lozano MD Consults: 08/26/19 12:47 Consult Physician Routine Consulting Provider: Estrada Ward Consult Reason/Comments: diverticulitis with localized perf Do you want consulting provider notified?: Yes Primary care physician: Yung [facility] Course: The patient is an 88-year-old female with a PMH of hypertension, duodenal ulcers, diverticulosis, GERD, hyperlipidemia, and hypothyroidism with a recent admission for diverticulitis and localized perforation presented to the ED with complaints of abdominal pain, and diarrhea. The patient reports that following her discharge to home on 08/18, she immediately began having soft "jelly-like" black stools. She notes that she had 5-7 stools per day, with occasional intermittent left-sided abdominal pain with no clear inciting or alleviating factors. She reports that due to her diarrhea and abdominal pain, she has been unable to tolerate much foods and as a result has been feeling really weak. Aside from the abdominal pain and diarrhea, she denied any additional complaints. She denied experiencing a cough, fever, sore throat, chest pain, or shortness of breath. She also denied dysuria, leg pain, headache, or visual disturbances. The patient reports that she completed her course of levofloxacin and Flagyl and continued having diarrhea despite taking the above medications. She underwent an extensive evaluation in the emergency room with CT chest abdomen and pelvis without contrast showing an irregular superior medial left apex mass, concerning for neoplasm versus scarring with a follow-up CT recommended. CT also revealed mild diverticulosis without diverticulitis and bilateral nonobstructing renal stones. Chest x-ray was unremarkable and EKG showed normal sinus rhythm at 91 bpm with T-wave inversion in lead III and T- wave flattening in lead aVF. Laboratory evaluation revealed a WBC count of 4.8, hemoglobin 12.9, platelet 189, sodium 136, potassium 4.5, chloride 102, CO2 26, BUN 13, creatinine 1.32, glucose 170, and magnesium 1.1. UA showed positive nitrates and small leukocyte esterase with no leukocytosis. Influenza and coronavirus testing was negative. C. diff was negative. Patient was initially started on vancomycin by mouth which was discontinued after C. diff was found to be negative. She was started on a low fiber diet and her diarrhea progressively resolved. Blood cultures were negative at the time of discharge. Patient was noted to have a positive nitrite and small leukocyte esterase on urinalysis. Given her symptoms of fever and generalized weakness, she was started on Rocephin for the treatment of UTI. Patient was noted to have an elevated AST for which general surgery ordered gallbladder ultrasound. Gallbladder ultrasound showed hydropic gallbladder containing sludge. Physical therapy was consulted due to generalized weakness and deconditioning. Patient prefer to go home rather than rehab. Patient was seen and examined. No acute events overnight. Patient reports considerable improvement in her weakness. No more diarrhea. She denies any chest pain, shortness breath or palpitations. No nausea or vomiting. No fever or chills. General: [non toxic], [no distress], [appears at stated age] Derm: [warm], [dry] Head: [atraumatic], [normocephalic], [symmetric] Eyes: [EOMI], [no lid lag], [anicteric sclera] Mouth: [no lip lesion], [mucus membranes moist] Cardiovascular: [S1S2 reg], [no murmur], [positive posterior tibial pulse bilateral], Lungs: [CTA bilateral], [no rhonchi, no rales] , [no accessory muscle use] Abdominal: [soft], [ nontender to palpation], [no guarding], [no appreciable organomegaly] Ext: [no gross muscle atrophy], [no edema], [no contractures] Neuro: [no focal neuro deficits] Psych: [Alert], [oriented], [appropriate affect] Diarrhea, with history of diverticulitis and microperforation -C. diff negative -Contact precautions -Vancomycin discontinued -IVFs -Low fiber diet -F/u blood cultures, currently negative UTI -Positive nitrite and small leukocyte esterase -Given her fever and symptoms of generalized weakness, will treat her UTI even though asymptomatic. -Transition Rocephin to Bactrim for another 5 days based on previous urine cultures -Urine culture pending at the time of discharge Deconditioning -Likely due to poor oral intake and dehydration -PT consult, patient would prefer to go home Chronic conditions: Hypertension, hyperlipidemia, Cardizem -Continue with home meds -Hold Ramipril in setting of DALILA DVT prophylaxis -Heparin subq [Patient has improved since admission. Generalized weakness improved. Plans on DC home today on oral antibiotics to complete a total of 7 days. We'll need to follow-up with PCP to follow-up urine culture.] this complex discharge took about 45 minutes to complete. Pertinent Studies: CT chest abdomen and pelvis, gallbladder ultrasound, chest x-ray Patient Condition at Discharge: Stable Plan - Discharge Summary Discharge Rx Participant: No New Discharge Prescriptions: New Sulfamethox-Tmp 800-160Mg [Bactrim DS 800-160 mg] 1 tab PO Q12HR #10 tab Continue Cholecalciferol [Vitamin D3 (25 Mcg = 1000 Iu)] 2,000 unit PO DAILY Acetaminophen Tab [Tylenol] 650 mg PO Q6HR PRN tab PRN Reason: Mild Pain Or Fever > 100.5 rOPINIRole HCL [Requip] 0.375 mg PO HS Ramipril 2.5 mg PO DAILY Ketoconazole 2% Cream [Nizoral 2%] 1 applic TOPICAL BID HYDROcodone/APAP 5-325MG [Campbell 5-325] 1 tab PO BID PRN PRN Reason: Pain clonazePAM [KlonoPIN] 1 mg PO HS Acetaminophen/Diphenhydramine [Tylenol Pm Ex-Strength Caplet] 1 tab PO HS Discontinued metroNIDAZOLE [Flagyl] 500 mg PO TID #21 tab Levofloxacin [Levaquin] 500 mg PO DAILY 7 Days #7 tab Discharge Medication List Cholecalciferol [Vitamin D3 (25 Mcg = 1000 Iu)] 2,000 unit PO DAILY 08/24/17 [History] Acetaminophen Tab [Tylenol] 650 mg PO Q6HR PRN tab 08/27/17 [Rx] Acetaminophen/Diphenhydramine [Tylenol Pm Ex-Strength Caplet] 1 tab PO HS 08/15/19 [History] HYDROcodone/APAP 5-325MG [Campbell 5-325] 1 tab PO BID PRN 08/15/19 [History] Ketoconazole 2% Cream [Nizoral 2%] 1 applic TOPICAL BID 08/15/19 [History] Ramipril 2.5 mg PO DAILY 08/15/19 [History] clonazePAM [KlonoPIN] 1 mg PO HS 08/15/19 [History] rOPINIRole HCL [Requip] 0.375 mg PO HS 08/15/19 [History] Sulfamethox-Tmp 800-160Mg [Bactrim DS 800-160 mg] 1 tab PO Q12HR #10 tab 0 08/29/19 [Rx] Follow up Appointment(s)/Referral(s): Yung Vázquez MD [Primary Care Provider] - 09/01/19 10:30 am (Phone call appointment. Office will call you. ) Estrada Ward MD [STAFF PHYSICIAN] - 1 Week Patient Instructions/Handouts: Urinary Tract Infection in Women (DC) Activity/Diet/Wound Care/Special Instructions: diet: Low-salt Follow-up PCP within 3 days of discharge. Take all medications as advised. Follow-up with PCP to obtain results for your urine culture. Discharge Disposition: HOME SELF-CARE
== END 2019-08-29 15:57 | disposition home or self-care (01) | DRG 690 ==
LOC: EC 20:28 → 4SSUR 23:09
PROVIDERS: ADMIT Internal Medicine; ATTEND Internal Medicine
DX: N39.0 Urinary tract infection, site not specified (principal); K82.1 Hydrops of gallbladder; N17.9 Acute kidney failure, unspecified; R19.7 Diarrhea, unspecified; K80.20 Calculus of gallbladder without cholecystitis without obstruction; E03.9 Hypothyroidism, unspecified; E78.5 Hyperlipidemia, unspecified; E83.42 Hypomagnesemia; E86.0 Dehydration; F41.0 Panic disorder [episodic paroxysmal anxiety]; F43.10 Post-traumatic stress disorder, unspecified; G25.81 Restless legs syndrome; I10 Essential (primary) hypertension; G47.30 Sleep apnea, unspecified; K21.9 Gastro-esophageal reflux disease without esophagitis; R74.8 Abnormal levels of other serum enzymes; K57.90 Diverticulosis of intestine, part unspecified, without perforation or abscess without bleeding; N20.0 Calculus of kidney; M19.042 Primary osteoarthritis, left hand; M19.041 Primary osteoarthritis, right hand; Z20.828 Contact with and (suspected) exposure to other viral communicable diseases; Z79.899 Other long term (current) drug therapy; Z87.11 Personal history of peptic ulcer disease; Z90.710 Acquired absence of both cervix and uterus; Z90.49 Acquired absence of other specified parts of digestive tract; Z98.42 Cataract extraction status, left eye; Z98.41 Cataract extraction status, right eye; Z96.1 Presence of intraocular lens; Z87.442 Personal history of urinary calculi; Z82.49 Family history of ischemic heart disease and other diseases of the circulatory system
CPT/HCPCS: 36415; 71045; 71250; 74176; 76705; 80053; 81001; 82728; 83605; 83615; 83735; 84145; 85025; 85027; 85379; 85610; 85730; 86140; 87040; 87086; 87324; 87502; 87635; 93005; 96360; 96361; 99285

== ENCOUNTER 2019-11-03 21:14 | Emergency (ER) | payer MEDICARE ==
[2019-11-03] MEDS ORDERED: SODIUM CHLORIDE 0.9% 1,000 ML IV STA (22:20)
--- NOTE | 2019-11-03 22:23 | ED ---
Back Pain HPI - General Chief Complaint: Back Pain/Injury Stated Complaint: RT flank pain Time Seen by Provider: 11/03/19 22:09 Source: patient Limitations: physical limitation - History of Present Illness Initial Comments: Patient is an 88-year-old female presenting to the emergency department with chief complaint of back pain. Patient states she developed the sudden onset of pain around 1400 today. He states the pain was sharp and lasted for about 1-2 hours. Patient reports the pain has since resolved. Patient denies any nausea or vomiting. States the pain was located in the right lumbar region. Denies any radiation of the pain. Denies any abdominal pain chest pain or shortness of breath. States she does have history of kidney stones. Denies any vaginal urinary symptoms. Denies hematuria, hematochezia or melena. Denies any night sweats or chills. Denies taking medication to alleviate the symptoms. - Related Data Home Medications Medication Instructions Recorded Confirmed Cholecalciferol [Vitamin D3 (25 2,000 unit PO DAILY 08/24/17 08/25/19 Mcg = 1000 Iu)] Acetaminophen/Diphenhydramine 1 tab PO HS 08/15/19 08/25/19 [Tylenol Pm Ex-Strength Caplet] HYDROcodone/APAP 5-325MG [[place] 1 tab PO BID PRN 08/15/19 08/25/19 5-325] Ketoconazole 2% Cream [Nizoral 2%] 1 applic TOPICAL BID 08/15/19 08/25/19 Ramipril 2.5 mg PO DAILY 08/15/19 08/25/19 clonazePAM [KlonoPIN] 1 mg PO HS 08/15/19 08/25/19 rOPINIRole HCL [Requip] 0.375 mg PO HS 08/15/19 08/25/19 Previous Rx's Medication Instructions Recorded Acetaminophen Tab [Tylenol] 650 mg PO Q6HR PRN tab 08/27/17 Sulfamethox-Tmp 800-160Mg [Bactrim 1 tab PO Q12HR #10 tab 08/29/19 DS 800-160 mg] Allergies Allergy/AdvReac Type Severity Reaction Status Date / Time No Known Allergies Allergy Verified 11/03/19 21:45 Review of Systems ROS Statement: Those systems with pertinent positive or pertinent negative responses have been documented in the HPI. ROS Other: All systems not noted in ROS Statement are negative. Past Medical History Past Medical History: Hyperlipidemia, Hypertension, Osteoarthritis (OA), Sleep Apnea/CPAP/BIPAP, Thyroid Disorder Additional Past Medical History / Comment(s): rls, arthritis in hands, GERD, gastric ulcer, past uterine fibroids, nephrolithiasis History of Any Multi-Drug Resistant Organisms: None Reported, ESBL Date of last positivie culture/infection: 08/24/17 MDRO Source:: URINE Past Surgical History: Adenoidectomy, Appendectomy, Hysterectomy, Tonsillectomy Additional Past Surgical History / Comment(s): Strabismus correction. cataracts- lens implants, blepharoplasty, lithotripsy Past Anesthesia/Blood Transfusion Reactions: No Reported Reaction Past Psychological History: Panic Disorder, PTSD Smoking Status: Current every day smoker Past Alcohol Use History: Daily Past Drug Use History: None Reported - Past Family History Father Additional Family Medical History / Comment(s): cardiac problems Mother Additional Family Medical History / Comment(s): mom fom old age General Exam Limitations: physical limitation General appearance: alert, in no apparent distress Head exam: Present: atraumatic, normocephalic, normal inspection Eye exam: Present: normal appearance, PERRL Pupils: Present: normal accommodation ENT exam: Present: normal exam, normal oropharynx, mucous membranes moist Neck exam: Present: normal inspection, full ROM Respiratory exam: Present: normal lung sounds bilaterally. Absent: respiratory distress, wheezes Cardiovascular Exam: Present: regular rate, normal rhythm, normal heart sounds GI/Abdominal exam: Present: soft, normal bowel sounds. Absent: distended, t enderness, guarding, rebound Extremities exam: Present: normal inspection, full ROM, normal capillary refill, other (+2 ulnar and radial pulses bilaterally. +2 dorsalis pedis and posterior tibialis bilaterally.) Back exam: Present: normal inspection, full ROM. Absent: tenderness, CVA tenderness (R), CVA tenderness (L), muscle spasm, paraspinal tenderness, vertebral tenderness Neurological exam: Present: alert, oriented X3, CN II-XII intact Psychiatric exam: Present: normal affect, normal mood Skin exam: Present: warm, dry, intact, normal color Course Vital Signs 11/03/19 11/03/19 21:41 22:51 Temperature 98.4 F 97.7 F Pulse Rate 93 94 Respiratory 20 16 Rate Blood Pressure 165/87 175/98 O2 Sat by Pulse 100 99 Oximetry Medical Decision Making - Medical Decision Making Patient is an 88-year-old female with history of kidney stones presenting to the emergency department with a chief complaint of back pain. Sudden onset of pain in the right lower back. No CVA tenderness. No complaints of pain at this time. CBC unremarkable. CMP reveals minor hyperkalemia 5.3. UA reveals no signs of urinary tract infection but does reveal blood and elevated red blood cells. CT of abdomen and pelvis without contrast reveals bilateral renal stones with no signs of hydronephrosis. Patient continues to be symptomatically throughout the whole hospital stay. I suspect patient had a renal stone which she was able to pass causing resolution of the pain. Patient is slightly hypertensive. Patient will be given her home antihypertensive medication. Return parameters were thoroughly discussed the patient was understanding and agreeable. Case discussed with physician. - Lab Data Result diagrams: 11/03/19 22:40 11/03/19 22:40 Lab Results 11/03/19 11/03/19 11/03/19 Range/Units 22:32 22:40 22:40 WBC 8.2 (3.8-10.6) k/uL RBC 4.49 (3.80-5.40) m/uL Hgb 14.3 (11.4-16.0) gm/dL Hct 45.4 (34.0-46.0) % MCV 101.0 H (80.0-100.0) fL MCH 31.9 (25.0-35.0) pg MCHC 31.6 (31.0-37.0) g/dL RDW 12.6 (11.5-15.5) % Plt Count 198 (150-450) k/uL Neutrophils % 69 % Lymphocytes % 20 % Monocytes % 5 % Eosinophils % 3 % Basophils % 1 % Neutrophils # 5.7 (1.3-7.7) k/uL Lymphocytes # 1.7 (1.0-4.8) k/uL Monocytes # 0.4 (0-1.0) k/uL Eosinophils # 0.2 (0-0.7) k/uL Basophils # 0.1 (0-0.2) k/uL Sodium 135 L (137-145) mmol/L Potassium 5.3 H (3.5-5.1) mmol/L Chloride 103 (98-107) mmol/L Carbon Dioxide 23 (22-30) mmol/L Anion Gap 9 mmol/L BUN 22 H (7-17) mg/dL Creatinine 0.92 (0.52-1.04) mg/dL Est GFR (CKD-EPI)AfAm 65 (>60 ml/min/1.73 sqM) Est GFR (CKD-EPI)NonAf 57 (>60 ml/min/1.73 sqM) Glucose 94 (74-99) mg/dL Calcium 10.6 H (8.4-10.2) mg/dL Total Bilirubin 0.9 (0.2-1.3) mg/dL AST 37 H (14-36) U/L ALT 12 (4-34) U/L Alkaline Phosphatase 69 (38-126) U/L Total Protein 8.1 (6.3-8.2) g/dL Albumin 4.7 (3.5-5.0) g/dL Urine Color Light Yellow Urine Appearance Clear (Clear) Urine pH 6.5 (5.0-8.0) Ur Specific [place] 1.008 (1.001-1.035) Urine Protein 1+ H (Negative) Urine Glucose (UA) Negative (Negative) Urine Ketones Negative (Negative) Urine Blood Moderate H (Negative) Urine Nitrite Negative (Negative) Urine Bilirubin Negative (Negative) Urine Urobilinogen <2.0 (<2.0) mg/dL Ur Leukocyte Esterase Moderate H (Negative) Urine RBC 81 H (0-5) /hpf Urine WBC 9 H (0-5) /hpf Ur Squamous Epith Cells 1 (0-4) /hpf Disposition Clinical Impression: Renal stones, Microscopic hematuria Disposition: HOME SELF-CARE Condition: Stable Instructions (If sedation given, give patient instructions): Kidney Stones (ED) Additional Instructions: Follow with her primary care. Return to emergency department if symptoms worsen. Is patient prescribed a controlled substance at d/c from ED?: No Referrals: Yung Vázquez MD [Primary Care Provider] - 1-2 days Time of Disposition: 00:20
[2019-11-03 22:46] LABS: Appearance,Urine Clear (Clear); Bilirubin,Urine Negative (Negative); Blood,Urine Moderate (Negative); Color,Urine Light Yellow; Glucose,Urine (UA) Negative (Negative); Ketones,Urine Negative (Negative); Leukocyte Esterase,Urine Moderate (Negative); Nitrite,Urine Negative (Negative); PH, Urine 6.5 (5.0-8.0); Protein,Urine 1+ (Negative); RBC,Urine 81 /hpf (0-5); Specific Gravity,Urine 1.008 (1.001-1.035); Squamous Epithelial Cell,Urine 1 /hpf (0-4); Urobilinogen,Urine <2.0 mg/dL (<2.0); WBC,Urine 9 /hpf (0-5)
[2019-11-03 22:49] LABS: Basophils # (A) 0.1 k/uL (0-0.2); Basophils % (A) 1 %; Eosinophils # (A) 0.2 k/uL (0-0.7); Eosinophils % (A) 3 %; HCT 45.4 % (34.0-46.0); HGB 14.3 gm/dL (11.4-16.0); Lymphocytes # (A) 1.7 k/uL (1.0-4.8); Lymphocytes % (A) 20 %; MCH 31.9 pg (25.0-35.0); MCHC 31.6 g/dL (31.0-37.0); Mean Platelet Volume 8.7; Monocytes # (A) 0.4 k/uL (0-1.0); Monocytes % (A) 5 %; Neutrophils # (A) 5.7 k/uL (1.3-7.7); Neutrophils % (A) 69 %; Platelet Count 198 k/uL (150-450); RBC 4.49 m/uL (3.80-5.40); RDW 12.6 % (11.5-15.5); WBC 8.2 k/uL (3.8-10.6)
[2019-11-03 23:00] LABS: Albumin 4.7 g/dL (3.5-5.0); Calcium 10.6 mg/dL (8.4-10.2); Total Bilirubin 0.9 mg/dL (0.2-1.3); Total Protein 8.1 g/dL (6.3-8.2)
[2019-11-03 23:06] LABS: Potassium 5.3 mmol/L (3.5-5.1)
--- NOTE | 2019-11-03 23:44 | CT ---
EXAMINATION TYPE: CT abdomen pelvis wo con DATE OF EXAM: 11/03/2019 COMPARISON: 08/16/2019 HISTORY: R/O Stones, Right Flank Pain CT DLP: 516.7 mGycm Automated exposure control for dose reduction was used. Exam performed without contrast from the diaphragm to the floor the pelvis. There is mild subsegmental atelectasis at the lung bases. There is no pleural effusion. Liver spleen pancreas gallbladder appear normal. Bile ducts are not dilated. Stomach shows small hiatal hernia. There is no adrenal mass. There is 1.2 cm calculus lower pole left kidney. There is 5 mm calculus low er pole right kidney. There is 5 mm calculus posterior left kidney. The ureters do not appear dilated . There are phleboliths in the pelvis. Bladder distends smoothly. There is no inguinal hernia. There is no sign of a pelvic mass. There is 1.5 cm cyst lateral left kidney. There is 6 mm calculus posterior right kidney. There are multiple sigmoid diverticula. I see no sign of diverticulitis. Appendix is not seen. There is no sign of thickened appendix. There is no mesenteric edema. There is no ascites or free air. Ther e is no bowel obstruction. There is multilevel spondylotic changes in the lumbar spine. There is mode rate spinal stenosis at L4-5 due to facet arthropathy. IMPRESSION: Nonobstructing bilateral renal calculi. Calculi increased compared to old exam. Appendix not seen. No sign of appendicitis. 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 Sigmoid diverticulosis without diverticulitis. There is clearing of a small amount of free fluid in the pelvis compared to old exam. There is clearing of the wall thickening and inflammatory changes of the colon compared to old exam.
[2019-11-04 07:34] VITALS: BP 164/73; PULSE 67; RESP 18; TEMP 97.8
== END 2019-11-04 08:25 | disposition home or self-care (01) ==
LOC: EC 21:14
DX: N20.0 Calculus of kidney (principal); E87.5 Hyperkalemia; I10 Essential (primary) hypertension; M19.042 Primary osteoarthritis, left hand; M19.041 Primary osteoarthritis, right hand; G25.81 Restless legs syndrome; F41.0 Panic disorder [episodic paroxysmal anxiety]; F17.200 Nicotine dependence, unspecified, uncomplicated; G47.30 Sleep apnea, unspecified; Z99.89 Dependence on other enabling machines and devices; Z79.891 Long term (current) use of opiate analgesic; Z90.49 Acquired absence of other specified parts of digestive tract; Z90.710 Acquired absence of both cervix and uterus; Z98.890 Other specified postprocedural states; Z79.899 Other long term (current) drug therapy
CPT/HCPCS: 36415; 74176; 80053; 81001; 85025; 96360; 96361; 99284

== ENCOUNTER → 2021-01-17 | Outpatient (CLI) | payer MEDICARE ==
--- NOTE | 2021-01-17 12:03 | CONS ---
CONSULTATION DATE OF SERVICE: 01/17/2021 This 89-year-old lady has been evaluated in [facility] for sleep problems and restless leg symptoms. HISTORY OF PRESENT ILLNESS/SLEEP-WAKE EVALUATION: This patient has difficulties with falling asleep secondary to restless leg symptoms, and that might increase her anxiety with movement when she goes to bed. She has episodes of gasping for air during sleep and a significant amount of movements during the night. These are more kicking movements; no history of [id number] movements, according to the patient. She wakes up from sleep two times with nocturia. In the mornings she wakes up tired, has problems with concentration and anxiety during the day. She usually does not take any naps. [place] Sleepiness Scale is 2. PAST MEDICAL HISTORY: Positive for hypertension, acid reflux, restless leg symptoms, swelling of the legs. PAST SURGICAL HISTORY: Appendectomy, tonsillectomy, hysterectomy, bladder suspension, left eye surgery. MEDICATIONS: 1. Furosemide 20 mg once a day. 2. Hydrocodone/acetaminophen 5/325 twice a day. 3. Ropinirole 0.25 mg 1-1/2 tablet twice a day. 4. Ramipril 10 mg once a day. 5. Pantoprazole 40 mg once a day. SOCIAL HISTORY: Positive for smoking for about 70 years, 2 to 3 cigarettes a day. Alcohol consumption occasional. FAMILY HISTORY: Cancer, heart problems. REVIEW OF SYSTEMS: No fevers. No double vision. No recent chest pain. No shortness of breath. No abdominal pain. No bleeding episodes. No blood in the urine. No seizure episodes. Significant amount of movements during sleep, restless leg symptoms. PHYSICAL EXAMINATION: GENERAL: Pleasant lady without distress. VITAL SIGNS: BP 193/95, HR 83, RR 15, height 4 feet 11 inches, weight 137, body mass index 27.2, temperature 97.1, oxygen saturation at room air 97%. HEENT: PERRLA, EOMI, evaluation of oropharynx showed tongue protrudes midline. Low position of soft palate; Mallampati III. NECK: Supple, no JVD. Thyroid is not palpable. Neck is 14-1/2 inches in circumference. LUNGS: Clear to percussion and to auscultation. Good air exchange. No wheezing or rhonchi. HEART: S1, S2 regular. No murmurs, gallops, or rubs. ABDOMEN: Soft and nontender. Bowel sounds are present. No organomegaly appreciated. EXTREMITIES: One to two plus bilateral ankle edema. PEST CONTROL TECHNICIAN: Patient walks with a walker, not stable to walk secondary to hip and knee problems. IMPRESSION: 1. Awakenings from sleep with gasping for air, low position of soft palate, Mallampati III; possible obstructive sleep apnea-hypopnea syndrome. 2. Restless leg symptoms. 3. Periodic limb movements. 4. Hypertension. 5. Acid reflux. 6. History of panic attacks. 7. Hip problems. 8. Knee problems. 9. Swelling of the legs. 10.Status post hysterectomy. 11.Status post bladder suspension. 12.Status post left eye surgery. PLAN: 1. Polysomnography for evaluation of patient's breathing during sleep and also to check her periodic limb movements during the night. 2. Please check iron profile, including ferritin level. Low level of iron may increase risk for periodic limb movements and restless legs syndrome. 3. Sleep hygiene with regular time in bed for 7-1/2 to 8 hours. 4. Precautions related to driving. No driving if feeling sleepiness. 5. Following plan after reviewing results of the sleep study. Thank you very much for referring this patient for consultation. Sincerely, Felipe Valdez MD, PhD, FAASM Diplomat of [employer] Sleep Medicine [employer] of [employer] [facility] [place] [facility] [place] MMODL / COREY: [id number] /
== END | disposition home or self-care (01) ==
LOC: SLEEP 10:34
PROVIDERS: ATTEND Internal Medicine
DX: G47.33 Obstructive sleep apnea (adult) (pediatric) (principal); G25.81 Restless legs syndrome; I10 Essential (primary) hypertension; K21.9 Gastro-esophageal reflux disease without esophagitis; M79.89 Other specified soft tissue disorders; Z90.711 Acquired absence of uterus with remaining cervical stump
CPT/HCPCS: 99211

== ENCOUNTER → 2021-02-04 | Outpatient (CLI) | payer MEDICARE ==
--- NOTE | 2021-02-05 07:43 | ECHOF ---
Referral Reason:R60.0 Bilateral Leg Edema MEASUREMENTS -------- HEIGHT: 152.4 cm WEIGHT: 62.1 kg BP: IVSd: 0.9 cm (0.6 - 1.1) LVIDd: 3.9 cm (3.9 - 5.3) LVPWd: 1.0 cm (0.6 - 1.1) IVSs: 1.5 cm LVIDs: 1.6 cm LVPWs: 1.9 cm Ao Diam: 3.4 cm (2.0 - 3.7) AV Cusp: 2.4 cm (1.5 - 2.6) LA Diam: 2.7 cm (2.7 - 3.8) MV EXCURSION: 16.659 mm (> 18.000) MV EF SLOPE: 119 mm/s (70 - 150) EPSS: 1.8 cm MV E Carlo: 0.63 m/s MV DecT: 194 ms MV A Carlo: 0.97 m/s MV E/A Ratio: 0.65 AR PHT: 610 ms RAP: 5.00 mmHg RVSP: 27.88 mmHg FINDINGS -------- This was a technically difficult study with suboptimal views. The left ventricular size is normal. Left ventricular wall thickness is normal. Overall left vent ricular systolic function is normal with, an EF between 55 - 60 %. The right ventricle is normal in size. The left atrial size is normal. The right atrial size is normal. Lumason used The aortic valve is trileaflet and appears structurally normal. There is mild aortic regurgitation. The mitral valve is normal. There is trace mitral regurgitation. The tricuspid valve appears structurally normal. Trace tricuspid regurgitation present. Right chelsey tricular systolic pressure is normal at < 35 mmHg. There is no pulmonic regurgitation present. The aortic root size is normal. There is no pericardial effusion. CONCLUSIONS -------- 1. The left ventricular size is normal. 2. Left ventricular wall thickness is normal. 3. Overall left ventricular systolic function is normal with, an EF between 55 - 60 %. 4. There is mild aortic regurgitation. 5. There is trace mitral regurgitation. 6. Trace tricuspid regurgitation present. 7. There is no pericardial effusion. DEPUTY REGISTER OF DEEDS: Amy Turner RDCS
== END | disposition home or self-care (01) ==
LOC: RADECHMAIN 14:49
PROVIDERS: ATTEND Family Medicine
DX: I35.1 Nonrheumatic aortic (valve) insufficiency (principal); I34.0 Nonrheumatic mitral (valve) insufficiency; I07.1 Rheumatic tricuspid insufficiency
CPT/HCPCS: C8929; Q9950; 93306

== ENCOUNTER 2021-03-01 09:54 | Emergency (ER) | payer MEDICARE ==
[2021-03-01 10:13] VITALS: BP 212/87; PULSE 78; RESP 18; TEMP 97.7
--- NOTE | 2021-03-01 11:00 | ED ---
Recheck HPI - General Chief Complaint: Recheck/Abnormal Lab/Rx Stated Complaint: tremors Time Seen by Provider: 03/01/21 10:22 Source: patient, RN notes reviewed Mode of arrival: ambulatory Limitations: no limitations - History of Present Illness Initial Comments: Patient is an 89-year-old female that presents to the emergency department complaining of essential tremors that are getting worse. She notes that she does follow-up with a neurologist Dr. Mast. She notes that she has been on several medications with minimal relief but noticed that [place] 5 seems to alleviate symptoms. She notes it is mostly in her legs. She notes that she's been told she's had restless legs in the past. Patient denied any other symptoms or complaints. She was otherwise well-appearing. She denied any chest pain first breath headache nausea vomiting diarrhea constipation fever fatigue chills. - Related Data Home Medications Medication Instructions Recorded Confirmed HYDROcodone/APAP 5-325MG [[place] 1 tab PO BID PRN 08/15/19 03/01/21 5-325] Furosemide [Lasix] 20 mg PO DAILY 03/01/21 03/01/21 Lidex 0.05% Solution 1 applic TOPICAL HS PRN 03/01/21 03/01/21 Ramipril [Altace] 10 mg PO DAILY 03/01/21 03/01/21 Venlafaxine HCl [Effexor XR] 37.5 mg PO DAILY 03/01/21 03/01/21 Previous Rx's Medication Instructions Recorded Nitrofurantoin Monohyd/M-Cryst 100 mg PO Q12HR #14 cap 03/01/21 [Macrobid] Allergies Allergy/AdvReac Type Severity Reaction Status Date / Time No Known Allergies Allergy Verified 03/01/21 11:48 Review of Systems ROS Statement: Those systems with pertinent positive or pertinent negative responses have been documented in the HPI. ROS Other: All systems not noted in ROS Statement are negative. Past Medical History Past Medical History: Hyperlipidemia, Hypertension, Osteoarthritis (OA), Sleep Apnea/CPAP/BIPAP, Thyroid Disorder Additional Past Medical History / Comment(s): rls, arthritis in hands, GERD, gastric ulcer, past uterine fibroids, nephrolithiasis, tremors History of Any Multi-Drug Resistant Organisms: ESBL Date of last positivie culture/infection: 08/24/17 MDRO Source:: URINE Past Surgical History: Adenoidectomy, Appendectomy, Hysterectomy, Tonsillectomy Additional Past Surgical History / Comment(s): Strabismus correction. cataracts- lens implants, blepharoplasty, lithotripsy Past Anesthesia/Blood Transfusion Reactions: No Reported Reaction Past Psychological History: Panic Disorder, PTSD Past Alcohol Use History: Daily Past Drug Use History: None Reported - Past Family History Father Additional Family Medical History / Comment(s): cardiac problems Mother Additional Family Medical History / Comment(s): mom fom old age General Exam Limitations: no limitations General appearance: alert, in no apparent distress, other (Patient did have minimal leg tremors consistent with restless leg. He stopped while patient was concentrating and answering questions.) Head exam: Present: atraumatic, normocephalic, normal inspection Eye exam: Present: normal appearance, PERRL, EOMI. Absent: scleral icterus, conjunctival injection, periorbital swelling ENT exam: Present: normal exam, mucous membranes moist Neck exam: Present: normal inspection Respiratory exam: Present: normal lung sounds bilaterally. Absent: respiratory distress, wheezes, rales, rhonchi, stridor Cardiovascular Exam: Present: regular rate, normal rhythm, normal heart sounds. Absent: systolic murmur, diastolic murmur, rubs, gallop, clicks Extremities exam: Present: normal inspection, full ROM, normal capillary refill. Absent: tenderness, pedal edema, joint swelling, calf tenderness Neurological exam: Present: alert, oriented X3 Psychiatric exam: Present: normal affect, normal mood Skin exam: Present: warm, dry, intact, normal color. Absent: rash Course Vital Signs 03/01/21 10:09 Temperature 97.7 F Pulse Rate 78 Respiratory 18 Rate Blood Pressure 212/87 O2 Sat by Pulse 98 Oximetry Medical Decision Making - Medical Decision Making 89-year-old female with essential tremors running out of [place] which she says helps. Urinalysis ordered per patient's request for possible UTI. Urinalysis shows UTI. 1 g Rocephin ordered. Antibiotics sent to pharmacy. Final 3 starter pack given. Patient follow-up with her neurologist as planned. Case discussed with Dr. Santos, patient discharge home. - Lab Data Lab Results 03/01/21 Range/Units 10:58 Urine Color Light Yellow Urine Appearance Cloudy H (Clear) Urine pH 6.0 (5.0-8.0) Ur Specific [place] 1.010 (1.001-1.035) Urine Protein Trace H (Negative) Urine Glucose (UA) Negative (Negative) Urine Ketones Negative (Negative) Urine Blood Negative (Negative) Urine Nitrite Positive H (Negative) Urine Bilirubin Negative (Negative) Urine Urobilinogen <2.0 (<2.0) mg/dL Ur Leukocyte Esterase Moderate H (Negative) Urine RBC 1 (0-5) /hpf Urine WBC 42 H (0-5) /hpf Ur Squamous Epith Cells 1 (0-4) /hpf Urine Bacteria Rare H (None) /hpf Disposition Clinical Impression: Urinary tract infection, Essential tremor Disposition: HOME SELF-CARE Condition: Stable Instructions (If sedation given, give patient instructions): Urinary Tract Infection in Women (ED) Additional Instructions: Please return to the Emergency Department if symptoms worsen or any other concerns. Follow-up with primary care 1-2 days. Take, 3 as prescribed. Follow-up with specialist as planned. Take antibiotic until complete. Is patient prescribed a controlled substance at d/c from ED?: No Referrals: Carlos Lewis [Primary Care Provider] - 1-2 days Time of Disposition: 12:33
[2021-03-01 11:35] LABS: Appearance,Urine Cloudy (Clear); Bacteria,Urine Rare /hpf; Bilirubin,Urine Negative (Negative); Blood,Urine Negative (Negative); Color,Urine Light Yellow; Glucose,Urine (UA) Negative (Negative); Ketones,Urine Negative (Negative); Leukocyte Esterase,Urine Moderate (Negative); Nitrite,Urine Positive (Negative); Protein,Urine Trace (Negative); RBC,Urine 1 /hpf (0-5); Squamous Epithelial Cell,Urine 1 /hpf (0-4); Urobilinogen,Urine <2.0 mg/dL (<2.0); WBC,Urine 42 /hpf (0-5)
[2021-03-01] MEDS ORDERED: cefTRIAXone 1,000 MG VIAL (IM USE) IM STA (12:00)
[2021-03-01] MEDS ORDERED: ACET/COD 300 MG/30 MG STARTER PACK 6 TAB BTL PO STA (12:32)
== END 2021-03-01 11:00 | disposition home or self-care (01) ==
LOC: EC 09:54
DX: N39.0 Urinary tract infection, site not specified (principal); B96.1 Klebsiella pneumoniae [K. pneumoniae] as the cause of diseases classified elsewhere; G25.0 Essential tremor; I10 Essential (primary) hypertension; Z79.899 Other long term (current) drug therapy
CPT/HCPCS: 81001; 87086; 99283; 96372; J0696; 87077; 87186

== ENCOUNTER → 2021-03-18 | Outpatient (CLI) | payer MEDICARE | END | disposition home or self-care (01) | LOC: LABPAT 10:39 | PROVIDERS: ATTEND Orthopaedic Surgery | DX: Z01.812 Encounter for preprocedural laboratory examination (principal); M16.12 Unilateral primary osteoarthritis, left hip | CPT/HCPCS: 87070 ==

== ENCOUNTER 2021-03-26 06:25 | Day surgery (SDC) | payer MEDICARE ==
[2021-03-22 16:04] VITALS: BMI 27.0
--- NOTE | 2021-03-25 09:25 | HP ---
HISTORY AND PHYSICAL CHIEF COMPLAINT: Left hip pain. HISTORY OF PRESENT ILLNESS: The patient is an 89-year-old retired female who presents with progressive left hip pain for the past several years, worsening recently. She notes groin and thigh pain, worse with any weightbearing activities. She notes she has been limping. She has a difficult time getting around. She does also have night symptoms. She does use a cane. PAST MEDICAL HISTORY: Significant for arthritis, hypertension, gastroesophageal reflux disease, kidney stones in addition to history of SVT. CURRENT MEDICATIONS: [place], ramipril, pantoprazole. ALLERGIES: SHE DENIES DRUG ALLERGIES. SURGICAL HISTORY: Significant for appendectomy, bladder surgery, cataract removal in addition to hysterectomy. FAMILY HISTORY: Significant for cancer. SOCIAL HISTORY: Significant for one-quarter pack per day tobacco use. REVIEW OF SYSTEMS: Sixteen-point review of systems is otherwise reviewed and noncontributory. PHYSICAL EXAMINATION: On examination, patient is approximately 5 feet tall, 120 pounds of ectomorphic habitus. HEENT exam is nonfocal. Neck is supple. Passive motion of the left hip: flexion 90 degrees, external rotation of the hip flexed 70 degrees, internal rotation 10 degrees with pain. Clinically she has mild shortening of the left lower extremity compared to the right. Her distal neurovascular exam appears intact in the left lower extremity. AP of the pelvis obtained in the office shows severe left hip osteoarthrosis with bone- on-bone changes and subchondral sclerosis. IMPRESSION: Left hip severe osteoarthrosis, symptomatic. RECOMMENDATIONS: I talked to the patient at length regarding her condition along with treatment options. At this point she is quite symptomatic and limited because of pain related to her osteoarthrosis despite previous conservative measures. After a thorough discussion, she opts to proceed with surgery. We will plan to proceed with left total hip arthroplasty utilizing an anterior approach. Risks and benefits were discussed at length in layman's terms. We will institute DVT prophylaxis postoperatively. MMODL / IJN: [id number] /
[~2021-03-26 06:25] MED LIST: ACETAMINOPHEN TAB 500 MG TAB PO PRN; LACTATED RINGERS 1,000 ML IV SCH; LIDOCAINE 1% (10MG/ML) FOR IV START INTRADERMA PRN; MELOXICAM 7.5 MG TAB PO PRN; ONDANSETRON 4 MG/2 ML VIAL IVP ONE; TRANEXAMIC ACID 1,000 MG in SODIUM CHLORIDE 0.9% 100 ML IVPB PRN
[2021-03-26] MEDS: LACTATED RINGERS 1,000 ML IV SCH (06:54)
[2021-03-26] MEDS ORDERED: ACETAMINOPHEN TAB 500 MG TAB ONE (07:19)
[2021-03-26] MEDS ORDERED: fentaNYL (PF) 50 MCG/ML 2 ML AMP ONE (07:40)
[2021-03-26] MEDS ORDERED: PHENYLEPHRINE-0.9% NACL SYG 1,000 MCG/10 ML SYRINGE ONE (07:40)
[2021-03-26] MEDS ORDERED: PROPOFOL 10 MG/ML 20 ML VIAL IV ONE (07:40)
[2021-03-26] MEDS ORDERED: MIDAZOLAM 2 MG/2 ML VIAL ONE (07:40)
[2021-03-26] MEDS ORDERED: TRANEXAMIC ACID 1,000 MG/10 ML VIAL ONE (07:40)
[2021-03-26] MEDS ORDERED: SODIUM CHLORIDE 0.9% 100 ML BAG ONE (07:40)
[2021-03-26] MEDS ORDERED: ceFAZolin 1,000 MG in SODIUM CHLORIDE 0.9% 1,000 ML IRRIGATION ONE (08:27)
[2021-03-26] MEDS ORDERED: LACTATED RINGERS 1,000 ML IV ONE (09:11)
[2021-03-26] MEDS ORDERED: NALOXONE 0.4 MG/ML 1 ML VIAL IV PRN (09:31)
[2021-03-26] MEDS ORDERED: HYDROmorphone 0.2 MG/1 ML SYRINGE IVP PRN (09:31)
--- NOTE | 2021-03-26 09:59 | P.OP ---
Date of Procedure: 03/26/21 Preoperative Diagnosis: Left hip severe osteoarthrosis Postoperative Diagnosis: Same Procedure(s) Performed: Left total hip arthroplastyanterior approachpress-fit Implants: Depuy Corail size 8 coxa vara collared press-fit femoral stem, 36+1.5 cobalt chrome femoral head, 52 mm [place] acetabular shell with neutral polyethylene liner Anesthesia: spinal Surgeon: Orestes Rossi Cancer Registrar #1: Saud Whitfield Estimated Blood Loss (ml): 150 Pathology: other (Femoral head) Condition: stable Disposition: PACU Indications for Procedure: The patient's an 89-year-old female presents with progressive left hip pain secondary to osteoarthrosis despite previous conservative measures. A discussion of the risks and benefits of operative intervention versus continued conservative measures was made with patient. She to proceed with surgery. Operative risks to include infection, neurovascular injury, developed blood clots, fracture, leg length discrepancy, instability, component loosening/failure and need for subsequent procedures was discussed. Informed consent was obtained. Operative Findings: as below Description of Procedure: The patient was brought to the operating room, and after induction of spinal anesthesia was placed supine on the Sarah table. Positioning was checked with fluoroscopy. The left hip was then prepped and draped in a normal fashion. A 12 cm incision was then made starting 2 fingerbreadths distal and 3 finger breaths posterior to the ASIS in line with the proximal femur. The skin was incised sharply. Subcutaneous tissues were divided sharply. Electrocautery was used for hemostasis. The fascia was split in line with skin incision. The interval between the sartorius and tensor fascia rani was then bluntly developed. The posterior fascia was opened with electrocautery. The lateral circumflex vessels were identified and cauterized prior to sectioning. A retractor was placed along the superior femoral neck as well as the anterior acetabular rim. A wide capsulotomy was performed. The neck cut was then made at a 45 angle to the shaft approximately 1 1/2 cm above the level of the lesser trochanter. The head was extracted. Attention was then paid towards preparing the acetabular. Anterior and posterior retractors were placed. The remaining capsular labral tissue sharply debrided clearly defining the acetabular margins. I began reaming with a 45 mm reamer taking care to initially medialize then reaming at 45 of abduction and 20 of anteversion. Sequential reaming is performed up to 51 mm. A trial 52 mm acetabular shell was inserted in the same orientation and was fully seated. There was good rim fit and stability. Positioning was checked with fluoroscopy. The final 52 mm acetabular shell was inserted again at 45 of abduction and 20 of anteversion. This was fully seated. There was good rim fit and stability. Again fluoroscopy was used to check the adequacy of placement. A neutral polyethylene liner was gently impacted. Care was taken to avoid any soft tissue interposition. Pulsatile lavage was utilized. Attention was then paid towards preparing the proximal femur. The central region was cleared of soft tissue. A canal finder was used to find the femoral canal. Sequential broaching was performed up to size 8 taking care to lateralize proximally. A calcar mill was used to fashion the medial calcar. There was good rotational stability. A coxa vara neck along with a 36+1.5 mm head was placed. The hip was gently reduced. Fluoroscopy was used to check the adequacy of positioning along with leg lengths. I felt both were good. The hip was gently dislocated. The trial components were removed. The final size 8 collared coxa vara press-fit femoral stem was inserted parallel to the posterior cortex. This was fully seated and there was good rotational stability. A 36 mm +1.5 head was placed. This was gently impacted. The hip was then gently reduced. Final fluoroscopic view showed adequate placement implant along with zoroastrianism of leg length. Stability was checked with 80 of external rotation and 60 of extension of the right hip. The wound was irrigated with sterile lavage. The fascia was closed with running 0 Vicryl suture. There was minimal drainage therefore a deep drain was not placed. The second dose of IV TXA was given. The subcutaneous tissues were reapproximated interrupted 2-0 Vicryl sutures. The skin was reapproximated with 3-0 subcuticular strata fix suture. Skin tape and adhesive was applied. A sterile dressing was applied. The patient was then awoken from sedation and transferred to recovery room in good condition. Blood loss was estimated at 150 mL. No complications were incurred. Sponge and needle counts were correct at the end of the case. Saud LEVY assisted during the major components is case to include exposure, bone resection, implantation, and closure.
--- NOTE | 2021-03-26 10:14 | FL ---
Fluoroscopy History: TOTAL LT ANTERIOR HIP Left anterior hip replacement. 15 sec fl time.
[2021-03-26] MEDS: HYDROmorphone 0.5 MG/0.5 ML SYRINGE IVP PRN ×2 (10:35→11:35)
[2021-03-26] MEDS ORDERED: hydrALAZINE HCL 25 MG TAB PO STA (13:08)
[2021-03-26] MEDS: HYDROcodone/APAP 5-325MG 1 EACH TAB PO PRN ×2 (13:34→19:07)
[2021-03-26] MEDS ORDERED: LORazepam 2 MG/ML INJ IV PRN ×3 (14:00)
[2021-03-26] MEDS ORDERED: THIAMINE 100 MG/ML 2 ML VIAL IM STA (14:00)
[2021-03-26] MEDS ORDERED: ALPRAZolam 0.25 MG TAB PO PRN (14:00)
[2021-03-26] MEDS ORDERED: hydrALAZINE HCL 25 MG TAB PO PRN (14:02)
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
[2021-03-26] MEDS: THIAMINE 100 MG TAB PO SCH (17:20)
[2021-03-26] MEDS ORDERED: SENNOSIDES-DOCUSATE SODIUM 1 EACH TAB PO SCH (21:00)
[2021-03-27 03:42] VITALS: RESP 18
[2021-03-27] MEDS: LACTATED RINGERS 1,000 ML IV SCH (05:32)
[2021-03-27 07:38] VITALS: BP 161/78; PULSE 73; TEMP 98.1
[2021-03-27] MEDS: HYDROcodone/APAP 5-325MG 1 EACH TAB PO PRN (08:03)
[2021-03-27] MEDS ORDERED: HYDROcodone/APAP 5-325MG 1 EACH TAB PO PRN (08:03)
[2021-03-27] MEDS: THIAMINE 100 MG TAB PO SCH (08:04)
[2021-03-27] MEDS ORDERED: ENOXAPARIN 40 MG/0.4 ML SYRINGE SQ SCH (09:00)
[2021-03-27 09:31] LABS: Basophils # (A) 0.03 X 10*3/uL (0.00-0.10); Basophils % (A) 0.4 %; Eosinophils # (A) 0.03 X 10*3/uL (0.04-0.35); Eosinophils % (A) 0.4 %; HCT 36.6 % (37.2-46.3); HGB 11.3 g/dL (12.0-15.0); Lymphocytes # (A) 1.34 X 10*3/uL (0.90-5.00); Lymphocytes % (A) 17.2 %; MCH 30.7 pg (27.0-32.0); MCHC 30.9 g/dL (32.0-37.0); MCV 99.5 fL (80.0-97.0); Mean Platelet Volume 12.2 fL (9.5-12.2); Monocytes # (A) 0.89 X 10*3/uL (0.20-1.00); Monocytes % (A) 11.4 %; Neutrophils # (A) 5.48 X 10*3/uL (1.80-7.70); Neutrophils % (A) 70.3 %; Platelet Count 164 X 10*3/uL (140-440); RBC 3.68 X 10*6/uL (4.10-5.20); RDW 14.5 % (11.5-14.5); WBC 7.79 X 10*3/uL (4.50-10.00)
--- NOTE | 2021-03-27 09:55 | P.DS ---
Providers Date of admission: 03/26/2021 Expected date of discharge: 03/27/21 Attending physician: Orestes Rossi Consults: 03/26/21 09:35 Consult Physician Routine Consulting Provider: Arturo Faust Consult Reason/Comments: Medical Management s/p left total hip arthroplasty Do you want consulting provider notified?: Yes Primary care physician: Carlos Lewis Hospital Course: Date of admission: 03/26/2021 Date of discharge: 03/27/2021 Admission diagnosis: Left hip osteoarthritis Discharge diagnosis: Same Attending physician: Dr. Rossi Surgical procedures: Left total hip arthroplasty Brief history: Patient is a 89-year-old female with a history of progressive primary left hip osteoarthritis. At this point patient has failed conservative treatment measures and has opted to proceed with a elective left total hip arthroplasty. Hospital course: Details of patient's surgery can be found in operative report. Patient tolerated the procedure well and was subsequently transported to orthopedic floor. Patient's orthopedic and medical care was provided daily. Patient had daily laboratory tests performed for evaluation of overall blood counts. Patient had daily physical therapy to include strengthening range of motion as well as education with walker ambulation. Patient was treated with Lovenox for their postoperative DVT prophylaxis during their inpatient stay. Patient was noted to have a relatively uneventful postoperative course. Patient reported satisfactory pain control with oral pain medications by postoperative day 1. Patient showed satisfactory progress with physical therapy. Patient moved steadily through the program and had no difficulty meeting the goals by postoperative day 1. Given patient's otherwise satisfactory course and having met physical therapy goals, plan is to discharge patient home on postoperative day 1. Discharge condition/disposition: Patient will be discharged home in stable condition. Discharge medications: Instructions are given on resumption of patient's normal daily medications per primary care recommendation, in addition patient will be prescribed [place] 5 mg/325 mg; aspirin 81 mg twice a day 30 days; Colace Discharge instructions: 1. Wound care and infection precautions, keep incision dry and covered while showering, no lotions, creams, moisturizers. No soaking, tubs, pools, hottubs. Do not scrub over the incision. 2. Weight-bear as tolerated with walker / cane until follow-up. 3. Ice and elevate when necessary. Do not exceed 20 minutes per hour with ice pack. 4. Utilize compression sleeve until seen at first follow up appointment. 5. Visiting nursing care. 6. Home physical therapy. 7. Pain meds and anticoagulants per prescription. 8. Pain medication has potential to cause constipation. Increase oral fluid and fiber intake. Contact primary care provider if you have not had a bowel movement within 48 hours after discharge 9. No anti-inflammatory medication until discussed at first post operative visit, this including Motrin, Aleve, Mobic, Diclofenac, Aspirin. 10. Follow up in office at 2 weeks postop with Real Moses PA-C / Saud Whitfield PA-C 11. Follow up with your primary care doctor 7-10 days after discharge. 12. Contact [facility] with any questions, . Keep mesh tape on until follow-up in office in 2 weeks. While showering, cover mesh tape with Saran wrap. Meds to go home: [place] 5 mg/325 mg; aspirin 81 mg twice a day 30 days; Colace Assessment: Left hip osteoarthritis Procedures: Left total hip arthroplasty Patient Condition at Discharge: Good Plan - Discharge Summary Discharge Rx Participant: No New Discharge Prescriptions: New HYDROcodone/APAP 5-325MG [[place] 5-325] 1 - 2 tab PO Q6HR PRN #36 tab PRN Reason: Pain Docusate [Colace] 100 mg PO DAILY #30 capsule Aspirin [Adult Low Dose Aspirin EC] 81 mg PO BID #60 tab No Action HYDROcodone/APAP 5-325MG [[place] 5-325] 1 tab PO BID PRN PRN Reason: Pain Ramipril [Altace] 10 mg PO DAILY Furosemide [Lasix] 20 mg PO DAILY Pantoprazole [Protonix] 40 mg PO DAILY Ibuprofen [Motrin Ib] 200 mg PO Q6H PRN PRN Reason: Pain Discharge Medication List HYDROcodone/APAP 5-325MG [[place] 5-325] 1 tab PO BID PRN 08/15/19 [History] Furosemide [Lasix] 20 mg PO DAILY 03/01/21 [History] Ramipril [Altace] 10 mg PO DAILY 03/01/21 [History] Ibuprofen [Motrin Ib] 200 mg PO Q6H PRN 03/22/21 [History] Pantoprazole [Protonix] 40 mg PO DAILY 03/22/21 [History] Aspirin [Adult Low Dose Aspirin EC] 81 mg PO BID #60 tab 03/27/21 [Rx] Docusate [Colace] 100 mg PO DAILY #30 capsule 03/27/21 [Rx] HYDROcodone/APAP 5-325MG [[place] 5-325] 1 - 2 tab PO Q6HR PRN #36 tab 03/27/21 [Rx] Follow up Appointment(s)/Referral(s): Saud Whitfield PAC [PHYSICIAN DRIVER RETRAINING INSTRUCTOR] - 04/11/21 2:10 pm Carlos Lewis [Primary Care Provider] - 1 Week Patient Instructions/Handouts: Total Hip Replacement (GEN) Activity/Diet/Wound Care/Special Instructions: Discharge instructions: 1. Wound care and infection precautions, keep incision dry and covered while showering, no lotions, creams, moisturizers. No soaking, tubs, pools, hottubs. Do not scrub over the incision. 2. Weight-bear as tolerated with walker / cane until follow-up. 3. Ice and elevate when necessary. Do not exceed 20 minutes per hour with ice pack. 4. Utilize compression sleeve until seen at first follow up appointment. 5. Visiting nursing care. 6. Home physical therapy. 7. Pain meds and anticoagulants per prescription. 8. Pain medication has potential to cause constipation. Increase oral fluid and fiber intake. Contact primary care provider if you have not had a bowel movement within 48 hours after discharge 9. No anti-inflammatory medication until discussed at first post operative visit, this including Motrin, Aleve, Mobic, Diclofenac, Aspirin. 10. Follow up in office at 2 weeks postop with Real Moses PA-C / Saud Whitfield PA-C 11. Follow up with your primary care doctor 7-10 days after discharge. 12. Contact [facility] with any questions, . Keep mesh tape on until follow-up in office in 2 weeks. While showering, cover mesh tape with Saran wrap. Meds to go home: [place] 5 mg/325 mg; aspirin 81 mg twice a day 30 days; Colace Discharge Disposition: HOME WITH HOME HEALTH SERVICES
[2021-03-27 09:56] LABS: African American GFR (CKD) 51.9 (60.0-200.0); Anion Gap 8.3 mmol/L (10.00-18.00); BUN/Creat Ratio 16.64 Ratio (12.00-20.00); Blood Urea Nitrogen 18.3 mg/dL (9.0-27.0); Calcium 9.6 mg/dL (8.7-10.3); Carbon Dioxide 25.7 mmol/L (20.0-27.5); Non-African American GFR(CKD) 44.8 (60.0-200.0); Potassium 5.9 mmol/L (3.5-5.5)
--- NOTE | 2021-03-27 10:23 | P.PN ---
Subjective Progress Note Date: 03/27/21 Principal diagnosis: Left hip osteoarthritis Patient was seen at bedside this morning resting carefully sitting up in chair reading a book. Patient says she was up with physical therapy this morning and did well. Patient says she does have a walker at home to use. Patient says she has some generalized achy pain over the incision on her left hip. Patient says she hasn't had bowel movement yet, however, patient says she has been passing gas. Patient denies chest pain, fever, shortness of breath, nausea, vomiting, change in vision, loss of bowel/bladder control. Objective - Vital Signs Vital signs: Vital Signs Temp 98.1 F 03/27/21 07:36 Pulse 73 03/27/21 07:36 Resp 18 03/27/21 07:36 BP 161/78 03/27/21 07:36 Pulse Ox 97 03/27/21 07:36 Intake & Output 03/26/21 03/27/21 03/27/21 18:59 06:59 18:59 Intake Total 1251 290 Output Total 150 Balance 1101 290 Weight 63 kg Intake: IV 1251 Intake, IV Titration 290 Amount Lactated Ringers 1,000 ml 240 @ 20 mls/hr IV .Q24H [facility] Rx#:[id number] ceFAZolin 2 gm In Sodium 50 Chloride 0.9% 50 ml @ 100 mls/hr IVPB Q8HR [facility] Rx# :[id number] Output: Estimated Blood Loss 150 Other: Voiding Method Toilet Toilet # Voids 1 1 - Exam Left hip: Incision is clean, dry, and intact. The mesh tape is in good condition. There is minimal soft tissue swelling and ecchymosis surrounding the medial and lateral aspects of the incision. Calf is soft, no tenderness with palpation. Plantar flexion, dorsiflexion, EHL, FHL are intact. Sensory exam to light touch throughout the extremity is intact, dorsal pedis pulses 2+. - Labs CBC & Chem 7: 03/27/21 06:22 03/27/21 06:22 Labs: Abnormal Lab Results - Last 24 Hours (Table) 03/27/21 Range/Units 06:22 RBC 3.68 L (4.10-5.20) X 10*6/uL Hgb 11.3 L (12.0-15.0) g/dL Hct 36.6 L (37.2-46.3) % MCV 99.5 H (80.0-97.0) fL MCHC 30.9 L (32.0-37.0) g/dL Eosinophils # 0.03 L (0.04-0.35) X 10*3/uL Assessment and Plan Assessment: Left hip osteoarthritis Postoperative day 1 status post left total hip arthroplasty Plan: 1. Left hip osteoarthritis - left total hip arthroplasty performed yesterday, 03/26/21. Patient stable at this morning. Plan discharge home today with health services. 2. Appreciate medical management 3. Pain management - Amber 5 mg/325 mg 4. DVT prophylaxis - going home with aspirin 81 mg twice a day 30 days 5. GI ppx - Colace 6. Encourage incentive spirometer use 7. PT/OT - weightbearing aside with walker for assistance 8. Discharge planning - discharge home today with health services Time with Patient: Less than 30
[2021-03-27 11:38] LABS: Potassium 5.2 mmol/L (3.5-5.1)
--- NOTE | 2021-03-27 21:04 | P.PN ---
Subjective Progress Note Date: 03/27/21 (Delayed charting patient seen at 1005 AM) Patient is 82-year-old female history of hypertension, dyslipidemia and GERD who presented with left hip pain for an elective left total hip arthroplasty. She underwent the procedure without any immediate postoperative complications. She did have some postoperative hypertension likely secondary to pain and anxiety. Patient seen and examined at bedside. Pain is well controlled, no nuasea, no vomiting, no diarrhea. General: non toxic, no distress, appears at stated age Derm: warm, dry Head: atraumatic, normocephalic, symmetric Eyes: EOMI, no lid lag, anicteric sclera Mouth: no lip lesion, mucus membranes moist Cardiovascular: S1S2 reg, no murmur, positive posterior tibial pulse bilateral, Lungs: CTA bilateral, no rhonchi, no rales , no accessory muscle use Abdominal: soft, nontender to palpation, no guarding, no appreciable organomegaly Ext: no gross muscle atrophy, no edema, no contractures Neuro: CN II-XI grossly intact, no focal neuro deficits Psych: Alert, oriented, appropriate affect Accelerated hypertension likely secondary to anxiety -Resume Ramapril and Lasix in a.m. -Follow blood pressures -Outpatient follow-up Hyperkalemia -Stat recheck ordered and patient's potassium 5.2. -Tramadol was held today. She will increase her oral intake and resume her Lasix. She can resume her Ramapril in the morning. - will follow with Dr. Lewis on 04/04 - all other outpatient potassium with in normal Traumatic stress disorder -Outpatient follow-up GERD - Protonix Medicall Optimized for discharge Thank you for allowing us to participate in the care of this pleasant patient. Do not hesitate to contact us with questions. Someone can be reached from the [facility] [place] hospitalist group all hours of the day at [phone] or via perfect serve. Objective - Vital Signs Vital signs: Vital Signs Temp 98.1 F 03/27/21 07:36 Pulse 73 03/27/21 07:36 Resp 18 03/27/21 07:36 BP 161/78 03/27/21 07:36 Pulse Ox 97 03/27/21 07:36 Intake & Output 03/27/21 03/27/21 03/28/21 06:59 18:59 06:59 Intake Total 290 Balance 290 Intake: Intake, IV Titration 290 Amount Lactated Ringers 1,000 ml 240 @ 20 mls/hr IV .Q24H [facility] Rx#:[id number] ceFAZolin 2 gm In Sodium 50 Chloride 0.9% 50 ml @ 100 mls/hr IVPB Q8HR [facility] Rx# :[id number] Other: Voiding Method Toilet Toilet # Voids 1 - Labs CBC & Chem 7: 03/27/21 06:22 03/27/21 10:57 Labs: Abnormal Lab Results - Last 24 Hours (Table) 03/27/21 03/27/21 03/27/21 Range/Units 06:22 06:22 10:57 RBC 3.68 L (4.10-5.20) X 10*6/uL Hgb 11.3 L (12.0-15.0) g/dL Hct 36.6 L (37.2-46.3) % MCV 99.5 H (80.0-97.0) fL MCHC 30.9 L (32.0-37.0) g/dL Eosinophils # 0.03 L (0.04-0.35) X 10*3/uL Sodium 133 L (137-145) mmol/L Potassium 5.9 H 5.2 H (3.5-5.5) mmol/L Anion Gap 8.30 L (10.00-18.00) mmol/L Est GFR (CKD-EPI)AfAm 51.9 L (60.0-200.0) Est GFR (CKD-EPI)NonAf 44.8 L (60.0-200.0) Glucose 111 H (70-110) mg/dL
== END 2021-03-27 13:12 | disposition home health service (06) ==
LOC: OR 06:25 → 4SSUR 09:50 → OR 03-27 13:12
PROVIDERS: ATTEND Orthopaedic Surgery
DX: M16.12 Unilateral primary osteoarthritis, left hip (principal); I10 Essential (primary) hypertension; K21.9 Gastro-esophageal reflux disease without esophagitis; G25.81 Restless legs syndrome; I47.1 Supraventricular tachycardia; E78.5 Hyperlipidemia, unspecified; E07.9 Disorder of thyroid, unspecified; G47.33 Obstructive sleep apnea (adult) (pediatric); Z79.899 Other long term (current) drug therapy; Z20.822 Contact with and (suspected) exposure to COVID-19
CPT/HCPCS: 97116; 97161; 97535; 97165; 80051; 80048; 85025; 88300; 87635; 73501; 27130; C1776; J2250; J3411; J0690 ×2; J2405; J1650; J3010; J2370; J2704; J1170 ×2; 36415; 86850; 86900; 86901

== ENCOUNTER 2021-04-03 15:43 | Emergency (ER) | payer MEDICARE ==
[2021-04-03 16:44] VITALS: TEMP 98
--- NOTE | 2021-04-03 19:56 | US ---
EXAMINATION TYPE: US venous doppler duplex LE LT DATE OF EXAM: 04/03/2021 7:43 PM COMPARISON: NONE CLINICAL HISTORY: r/o dvt. Pain and swelling within the left leg. Hx hip surgery 1 week ago. No hx of DVT. SIDE PERFORMED: Left TECHNIQUE: The lower extremity deep venous system is examined utilizing real time linear array sonog mariela with graded compression, doppler sonography and color-flow sonography. VESSELS IMAGED: Common Femoral Vein Deep Femoral Vein Greater Saphenous Vein * Femoral Vein Popliteal Vein Small Saphenous Vein * Proximal Calf Veins (* superficial vessels) Left Leg: Color flow seen in all veins imaged at this time. Possible internal echoes along vessel wa ll versus wall thickening within GSV, CFV, and proximal femoral vein. Hypoechoic area with hyperechoic center seen within the left groin: 2.2 x 2.8 x 1.2 cm. Left upper calf edema noted. IMPRESSION: 1. Left lower extremity ultrasound negative for obstructing deep venous thrombosis. 2. Left inguinal lymph node. Follow-up is recommended
--- NOTE | 2021-04-03 20:08 | ED ---
General Adult HPI - General Chief complaint: Extremity Problem,Nontraumatic Stated complaint: possible blood clot-sent by PCP Time Seen by Provider: 04/03/21 19:47 Source: patient Mode of arrival: wheelchair Limitations: no limitations - History of Present Illness Initial comments: Dictation was produced using [employer] dictation software. please excuse any grammatical, word or spelling errors. Chief Complaint: 89-year-old female presents emergency department for left left lower extremity swelling History of Present Illness: 89-year-old female she was sent here by her general practitioner. She states that she's had swelling since after surgery 1 week ago. She saw her primary care doctor and was instructed to come to the ER to be evaluated for a DVT. Denies any fever. No shortness of breath. She states that she has pain to her left hip over this from the surgery. She has chronic hyperpigmentation in tibial pain that has been ongoing for the last several weeks. The ROS documented in this emergency department record has been reviewed and confirmed by me. Those systems with pertinent positive or negative responses h ave been documented in the HPI. All other systems are other negative and/or noncontributory. PHYSICAL EXAM: General Impression: Alert and oriented x3, not in acute distress HEENT: Normocephalic atraumatic, extra-ocular movements intact, pupils equal and reactive to light bilaterally, mucous membranes moist. Cardiovascular: Heart regular rate and rhythm Chest: Able to complete full sentences, no retractions, no tachypnea Musculoskeletal: Pulses present and equal in all extremities, no peripheral edema Left shoulder: There is some hyperpigmentation and palpatory tenderness to the left anterior tibial area, there is mild calf tenderness Motor: no focal deficits noted Neurological: CN II-XII grossly intact, no focal motor or sensory deficits noted Skin: Intact with no visualized rashes Psych: Normal affect and mood ED course: 89-year-old male presents to the emergency department after being sent by her primary care doctor for ultrasound to rule out DVT. Signs upon arrival are within acceptable limits. Patient reports that she has chronic left lower extremity hyperpigmentation and pain the last several weeks. Lower extremity venous duplex ultrasound of the left lower extremity shows no acute processes. Patient stable for discharge. Patient advised to follow-up with primary care doctor. - Related Data Home Medications Medication Instructions Recorded Confirmed HYDROcodone/APAP 5-325MG [[place] 1 tab PO BID PRN 08/15/19 03/26/21 5-325] Furosemide [Lasix] 20 mg PO DAILY 03/01/21 03/22/21 Ramipril [Altace] 10 mg PO DAILY 03/01/21 03/22/21 Ibuprofen [Motrin Ib] 200 mg PO Q6H PRN 03/22/21 03/22/21 Pantoprazole [Protonix] 40 mg PO DAILY 03/22/21 03/22/21 Previous Rx's Medication Instructions Recorded Aspirin [Adult Low Dose Aspirin EC] 81 mg PO BID #60 tab 03/27/21 Docusate [Colace] 100 mg PO DAILY #30 capsule 03/27/21 HYDROcodone/APAP 5-325MG [[place] 1 - 2 tab PO Q6HR PRN #36 tab 03/27/21 5-325] Allergies Allergy/AdvReac Type Severity Reaction Status Date / Time No Known Allergies Allergy Verified 04/03/21 16:44 Review of Systems ROS Statement: Those systems with pertinent positive or pertinent negative responses have been documented in the HPI. ROS Other: All systems not noted in ROS Statement are negative. Past Medical History Past Medical History: Hyperlipidemia, Hypertension, Osteoarthritis (OA), Sleep Apnea/CPAP/BIPAP, Thyroid Disorder Additional Past Medical History / Comment(s): hx. gastric ulcer, nephrolithiasis, no longer needs thyroid med, was tx. for years w/[place] for RLS because of "shaking" all over-actually made her sx. worse, now just has shaking @times lower part of body-believes it is from PTSD in past History of Any Multi-Drug Resistant Organisms: ESBL Date of last positivie culture/infection: 08/24/17 MDRO Source:: URINE Past Surgical History: Adenoidectomy, Appendectomy, Hysterectomy, Orthopedic Surgery, Tonsillectomy Additional Past Surgical History / Comment(s): Strabismus correction. cataracts- lens implants, blepharoplasty, lithotripsy, left hip replacment 03/28/21 Past Anesthesia/Blood Transfusion Reactions: No Reported Reaction Past Psychological History: Panic Disorder, PTSD Smoking Status: Never smoker Past Alcohol Use History: None Reported Past Drug Use History: None Reported - Past Family History Father Additional Family Medical History / Comment(s): cardiac problems Mother Additional Family Medical History / Comment(s): mom fom old age General Exam Limitations: no limitations Course Vital Signs 04/03/21 16:41 Temperature 98.0 F Pulse Rate 84 Respiratory 19 Rate Blood Pressure 174/89 O2 Sat by Pulse 99 Oximetry Disposition Clinical Impression: Leg pain Disposition: HOME SELF-CARE Condition: Fair Instructions (If sedation given, give patient instructions): Leg Pain (ED) Is patient prescribed a controlled substance at d/c from ED?: No Referrals: Carlos Lewis [Primary Care Provider] - 1-2 days
[2021-04-03 20:36] VITALS: BP 160/84; PULSE 78; RESP 20
== END 2021-04-03 20:36 | disposition home or self-care (01) ==
LOC: EC 15:43
DX: M25.552 Pain in left hip (principal); M79.89 Other specified soft tissue disorders; I10 Essential (primary) hypertension; Z79.899 Other long term (current) drug therapy; Z96.642 Presence of left artificial hip joint
CPT/HCPCS: 99283

== ENCOUNTER 2022-01-09 15:18 | Emergency (ER) | payer MEDICARE ==
[2022-01-09 15:48] VITALS: PULSE 88; RESP 18; TEMP 98.3
[2022-01-09] MEDS ORDERED: LABETALOL SYRINGE 5 MG/ML IVP STA (16:28)
[2022-01-09 16:35] LABS: Basophils % (A) 0 %; Eosinophils # (A) 0.2 k/uL (0-0.7); Eosinophils % (A) 4 %; HCT 42.9 % (34.0-46.0); HGB 14.1 gm/dL (11.4-16.0); Lymphocytes # (A) 1.2 k/uL (1.0-4.8); Lymphocytes % (A) 20 %; MCH 32.7 pg (25.0-35.0); MCV 99.3 fL (80.0-100.0); Mean Platelet Volume 8.6; Monocytes # (A) 0.4 k/uL (0-1.0); Monocytes % (A) 7 %; Neutrophils # (A) 3.9 k/uL (1.3-7.7); Neutrophils % (A) 66 %; Platelet Count 197 k/uL (150-450); RBC 4.32 m/uL (3.80-5.40); RDW 13.8 % (11.5-15.5)
[2022-01-09 16:42] LABS: Albumin 4.1 g/dL (3.5-5.0); Calcium 9.9 mg/dL (8.4-10.2); Potassium 3.8 mmol/L (3.5-5.1); Total Bilirubin 0.4 mg/dL (0.2-1.3); Total Protein 6.8 g/dL (6.3-8.2)
--- NOTE | 2022-01-09 17:11 | CT ---
EXAMINATION TYPE: CT brain cspine wo con DATE OF EXAM: 01/09/2022 COMPARISON: CT brain December 25, 2021 HISTORY: fall, dizziness, neck pain after injury CT DLP: 1202.7 mGycm. Automated Exposure Control for Dose Reduction was Utilized. TECHNIQUE: CT scan of the head and cervical spine are performed without contrast. FINDINGS: There is no acute intracranial hemorrhage or midline shift identified. Mild ventricular a nd sulcal prominence redemonstrated. Mild low-attenuation in the periventricular white matter redemo nstrated. The calvarium is intact. The globes are intact and the visualized sinuses are clear. Cervical spine is visualized in its entirety from C1 through upper thoracic levels and demonstrates l evoconvex scoliosis centered at C3-C4 level without evidence of acute fracture or dislocation. Preve rtebral soft tissue appears within normal limits. The C1-C2 articulation shows asymmetric left-sided narrowing and spurring on the coronal images. Vertebral body heights are maintained. Grade 1 anterol isthesis C3 on C4. Moderate to severe multilevel disc space narrowing C4-C5 through C6-C7 levels. Sli ght grade 1 anterolisthesis C7 on T1. Axial images show multilevel uncovertebral facet degenerative c hanges causing multilevel bilateral neural foraminal narrowing. Thyroid gland appears within normal l imits. Lung apices show no pneumothorax. There is 1.1 x 0.8 cm lobulated nodule or nodular consolidat ion left upper lung. Follow-up is advised to exclude neoplasm. IMPRESSION: 1. There is no acute fracture or dislocation evident in the cervical spine. 2. No acute intracranial hemorrhage or midline shift is seen.
[2022-01-09 17:37] LABS: Appearance,Urine Clear (Clear); Bilirubin,Urine Negative (Negative); Blood,Urine Negative (Negative); Color,Urine Colorless; Glucose,Urine (UA) Negative (Negative); Ketones,Urine Negative (Negative); Leukocyte Esterase,Urine Negative (Negative); Nitrite,Urine Negative (Negative); PH, Urine 7.5 (5.0-8.0); Protein,Urine Trace (Negative); Specific Gravity,Urine 1.007 (1.001-1.035); Urobilinogen,Urine <2.0 mg/dL (<2.0)
--- NOTE | 2022-01-09 17:39 | ED ---
General Adult HPI - General Chief complaint: Recheck/Abnormal Lab/Rx Stated complaint: High BP, Dr sent Time Seen by Provider: 01/09/22 16:05 Source: patient Mode of arrival: ambulatory Limitations: no limitations - History of Present Illness Initial comments: Patient is an 89-year-old female presenting for evaluation of elevated blood pressure. Patient states that she's been monitoring her blood pressure at home and notices that it is in the 180s systolic over the past few days. Patient had a fall 2 days ago where she was bending over to reach for something got dizzy and fell backwards. Patient denies hitting her head, any loss of consciousness, or use of blood thinners. Patient called her doctor today stating that her blood pressure is been elevated in the advised her to report to the ER. She denies any chest pain, shortness of breath, fever, chills, nausea, vomiting, palpitations, weakness, numbness, tingling, or extremity pain, headache, vision or hearing changes. - Related Data Home Medications Medication Instructions Recorded Confirmed HYDROcodone/APAP 5-325MG [[place] 1 tab PO TID PRN 08/15/19 01/09/22 5-325] Furosemide [Lasix] 20 mg PO DAILY 03/01/21 01/09/22 ramipriL [Altace] 15 mg PO DAILY 03/01/21 01/09/22 Ibuprofen [Motrin Ib] 200 mg PO Q6H PRN 03/22/21 01/09/22 Pantoprazole [Protonix] 40 mg PO DAILY 03/22/21 01/09/22 Allergies Allergy/AdvReac Type Severity Reaction Status Date / Time No Known Allergies Allergy Verified 01/09/22 18:09 Review of Systems ROS Statement: Those systems with pertinent positive or pertinent negative responses have been documented in the HPI. ROS Other: All systems not noted in ROS Statement are negative. Past Medical History Past Medical History: Hyperlipidemia, Hypertension, Osteoarthritis (OA), Sleep Apnea/CPAP/BIPAP, Thyroid Disorder Additional Past Medical History / Comment(s): hx. gastric ulcer, nephrolithiasis, no longer needs thyroid med, was tx. for years w/[place] for RLS because of "shaking" all over-actually made her sx. worse, now just has shaking @times lower part of body-believes it is from PTSD in past History of Any Multi-Drug Resistant Organisms: ESBL Date of last positivie culture/infection: 08/24/17 MDRO Source:: URINE Past Surgical History: Adenoidectomy, Appendectomy, Hysterectomy, Orthopedic Surgery, Tonsillectomy Additional Past Surgical History / Comment(s): Strabismus correction. cataracts- lens implants, blepharoplasty, lithotripsy, left hip replacment 03/28/21 Past Anesthesia/Blood Transfusion Reactions: No Reported Reaction Past Psychological History: Panic Disorder, PTSD Smoking Status: Never smoker Past Alcohol Use History: None Reported Past Drug Use History: None Reported - Past Family History Father Additional Family Medical History / Comment(s): cardiac problems Mother Additional Family Medical History / Comment(s): mom fom old age General Exam Limitations: no limitations General appearance: alert, in no apparent distress Head exam: Present: atraumatic, normocephalic, normal inspection Eye exam: Present: normal appearance, EOMI. Absent: scleral icterus, periorbital swelling Neck exam: Present: normal inspection Respiratory exam: Present: normal lung sounds bilaterally. Absent: respiratory distress, wheezes, rales, rhonchi, stridor Cardiovascular Exam: Present: regular rate, normal rhythm, normal heart sounds. Absent: systolic murmur, diastolic murmur, rubs, gallop, clicks Extremities exam: Present: normal inspection, full ROM Neurological exam: Present: alert, oriented X3, CN II-XII intact Psychiatric exam: Present: normal affect, normal mood Skin exam: Present: warm, dry, intact, normal color. Absent: rash Course Vital Signs 01/09/22 01/09/22 01/09/22 15:45 17:29 18:00 Temperature 98.3 F Pulse Rate 88 Respiratory 18 Rate Blood Pressure 185/88 188/86 183/79 O2 Sat by Pulse 100 Oximetry 01/09/22 19:14 Temperature Pulse Rate 88 Respiratory 18 Rate Blood Pressure 121/81 O2 Sat by Pulse 96 Oximetry EKG Findings - EKG Comments: EKG Findings:: Sinus rhythm with sinus arrhythmia. Rate of 76. [place] interval 180. QRS duration 74. QT/QTC 366/396. Left axis deviation. No ischemic ST or T-wave changes. No changes from previous EKG. Medical Decision Making - Medical Decision Making Patient is an 89-year-old female presenting with chief complaint of hypertension. No chest pain, shortness of breath, palpitations, weakness. Patient had a fall 2 days ago at home, fell backwards after she developed brief onset of dizziness. On examination heart and lungs are clear to auscultation, no neurological deficits. Lab work shows no leukocytosis and hemoglobin of 14.1. PT/INR WNL. Electrolytes WNL. BUN and creatinine 24 and 1.08 respect ively glucose is 114. CT of the brain and cervical spine without contrast shows no acute fracture or dislocation of the cervical spine and no acute intracranial hemorrhage or midline shift. Patient is given labetalol for hypertension, BP continued to stay in the 180's. She was given 10mg hydralizine. Blood pressure came down to 121/81. Patient is stable for discharge with outpatient follow-up at this time. Patient is instructed to double her dose of Lasix until her appointment with her PCP. Follow-up with PCP. Report back to ER with any new or worsening symptoms. Discussed return parameters and answered all questions. Patient conveyed verbal understanding and agreed to the plan. I discussed this case in detail with my attending Dr. Byrne. - Lab Data Result diagrams: 01/09/22 16:24 01/09/22 16:24 Lab Results 01/09/22 01/09/22 01/09/22 Range/Units 16:24 16:24 16:24 WBC 6.0 (3.8-10.6) k/uL RBC 4.32 (3.80-5.40) m/uL Hgb 14.1 (11.4-16.0) gm/dL Hct 42.9 (34.0-46.0) % MCV 99.3 (80.0-100.0) fL MCH 32.7 (25.0-35.0) pg MCHC 33.0 (31.0-37.0) g/dL RDW 13.8 (11.5-15.5) % Plt Count 197 (150-450) k/uL MPV 8.6 Neutrophils % 66 % Lymphocytes % 20 % Monocytes % 7 % Eosinophils % 4 % Basophils % 0 % Neutrophils # 3.9 (1.3-7.7) k/uL Lymphocytes # 1.2 (1.0-4.8) k/uL Monocytes # 0.4 (0-1.0) k/uL Eosinophils # 0.2 (0-0.7) k/uL Basophils # 0.0 (0-0.2) k/uL PT 11.0 (9.0-12.0) sec INR 1.0 (<1.2) Sodium 138 (137-145) mmol/L Potassium 3.8 (3.5-5.1) mmol/L Chloride 98 (98-107) mmol/L Carbon Dioxide 27 (22-30) mmol/L Anion Gap 13 mmol/L BUN 24 H (7-17) mg/dL Creatinine 1.08 H (0.52-1.04) mg/dL Est GFR (CKD-EPI)AfAm 53 (>60 ml/min/1.73 sqM) Est GFR (CKD-EPI)NonAf 46 (>60 ml/min/1.73 sqM) Glucose 114 H (74-99) mg/dL Calcium 9.9 (8.4-10.2) mg/dL Total Bilirubin 0.4 (0.2-1.3) mg/dL AST 27 (14-36) U/L ALT 13 (4-34) U/L Alkaline Phosphatase 137 H (38-126) U/L Total Protein 6.8 (6.3-8.2) g/dL Albumin 4.1 (3.5-5.0) g/dL Urine Color Urine Appearance (Clear) Urine pH (5.0-8.0) Ur Specific [place] (1.001-1.035) Urine Protein (Negative) Urine Glucose (UA) (Negative) Urine Ketones (Negative) Urine Blood (Negative) Urine Nitrite (Negative) Urine Bilirubin (Negative) Urine Urobilinogen (<2.0) mg/dL Ur Leukocyte Esterase (Negative) 01/09/22 Range/Units 17:27 WBC (3.8-10.6) k/uL RBC (3.80-5.40) m/uL Hgb (11.4-16.0) gm/dL Hct (34.0-46.0) % MCV (80.0-100.0) fL MCH (25.0-35.0) pg MCHC (31.0-37.0) g/dL RDW (11.5-15.5) % Plt Count (150-450) k/uL MPV Neutrophils % % Lymphocytes % % Monocytes % % Eosinophils % % Basophils % % Neutrophils # (1.3-7.7) k/uL Lymphocytes # (1.0-4.8) k/uL Monocytes # (0-1.0) k/uL Eosinophils # (0-0.7) k/uL Basophils # (0-0.2) k/uL PT (9.0-12.0) sec INR (<1.2) Sodium (137-145) mmol/L Potassium (3.5-5.1) mmol/L Chloride (98-107) mmol/L Carbon Dioxide (22-30) mmol/L Anion Gap mmol/L BUN (7-17) mg/dL Creatinine (0.52-1.04) mg/dL Est GFR (CKD-EPI)AfAm (>60 ml/min/1.73 sqM) Est GFR (CKD-EPI)NonAf (>60 ml/min/1.73 sqM) Glucose (74-99) mg/dL Calcium (8.4-10.2) mg/dL Total Bilirubin (0.2-1.3) mg/dL AST (14-36) U/L ALT (4-34) U/L Alkaline Phosphatase (38-126) U/L Total Protein (6.3-8.2) g/dL Albumin (3.5-5.0) g/dL Urine Color Colorless Urine Appearance Clear (Clear) Urine pH 7.5 (5.0-8.0) Ur Specific [place] 1.007 (1.001-1.035) Urine Protein Trace H (Negative) Urine Glucose (UA) Negative (Negative) Urine Ketones Negative (Negative) Urine Blood Negative (Negative) Urine Nitrite Negative (Negative) Urine Bilirubin Negative (Negative) Urine Urobilinogen <2.0 (<2.0) mg/dL Ur Leukocyte Esterase Negative (Negative) Disposition Clinical Impression: Hypertension Disposition: HOME SELF-CARE Condition: Good Instructions (If sedation given, give patient instructions): Hypertension (ED) Additional Instructions: Follow-up with PCP. Report back to ER with any new or worsening symptoms. You can double your Lasix dose for the next 1 week until you are able to get in with your PCP. Is patient prescribed a controlled substance at d/c from ED?: No Referrals: Carlos Lewis [Primary Care Provider] - 1-2 days Time of Disposition: 19:10
[2022-01-09] MEDS ORDERED: hydrALAZINE HCL 20 MG/ML 1 ML VIAL IVP STA (18:06)
[2022-01-09] MEDS ORDERED: HYDROcodone/APAP 5-325MG 1 EACH TAB PO STA (18:46)
[2022-01-09 19:15] VITALS: BP 121/81
== END 2022-01-09 19:33 | disposition home or self-care (01) ==
LOC: EC 15:18
DX: I10 Essential (primary) hypertension (principal); E78.5 Hyperlipidemia, unspecified; M19.90 Unspecified osteoarthritis, unspecified site; E07.9 Disorder of thyroid, unspecified; Z79.899 Other long term (current) drug therapy
CPT/HCPCS: 36415; 93005; 80053; 85025; 85610; 81003; 72125; 70450; 99284; 96374; 96375; J0360

== ENCOUNTER 2022-01-15 16:01 | Emergency (ER) | payer MEDICARE ==
[2022-01-15 16:27] VITALS: RESP 18; TEMP 97.9
[2022-01-15] MEDS ORDERED: hydrALAZINE HCL 20 MG/ML 1 ML VIAL IVP STA ×2 (19:29→19:51)
--- NOTE | 2022-01-15 19:29 | ED ---
General Adult HPI - General Chief complaint: Recheck/Abnormal Lab/Rx Stated complaint: HIGH BP Time Seen by Provider: 01/15/22 19:05 Source: patient, RN notes reviewed, old records reviewed Mode of arrival: wheelchair Limitations: no limitations - History of Present Illness Initial comments: This is an 89-year-old female presents emergency Department complaining that her blood pressures been high. Patient states she's also noted she was a little shaky today. Patient states she was here couple days ago with elevated blood pressure and she doubled her current blood pressure medication but has not helped her blood pressure. Patient states she is without a primary medical care doctor currently because her primary medical care doctor abruptly left. Patient states she does have appointment a week with another physician. Patient denies any chest pain or palpitations. Patient denies any shortness of breath or difficulty breathing. Patient denies any blurred vision or headache. Patient denies numbness or weakness. Patient denies abdominal pain patient denies any back pain patient denies nausea vomiting diarrhea. - Related Data Home Medications Medication Instructions Recorded Confirmed HYDROcodone/APAP 5-325MG [[place] 1 tab PO TID PRN 08/15/19 01/09/22 5-325] Furosemide [Lasix] 20 mg PO DAILY 03/01/21 01/09/22 ramipriL [Altace] 15 mg PO DAILY 03/01/21 01/09/22 Ibuprofen [Motrin Ib] 200 mg PO Q6H PRN 03/22/21 01/09/22 Pantoprazole [Protonix] 40 mg PO DAILY 03/22/21 01/09/22 Previous Rx's Medication Instructions Recorded hydrALAZINE HCL [Apresoline] 10 mg PO BID #20 tablet 01/15/22 Allergies Allergy/AdvReac Type Severity Reaction Status Date / Time No Known Allergies Allergy Verified 01/15/22 16:27 Review of Systems ROS Statement: Those systems with pertinent positive or pertinent negative responses have been documented in the HPI. ROS Other: All systems not noted in ROS Statement are negative. Past Medical History Past Medical History: Hyperlipidemia, Hypertension, Osteoarthritis (OA), Sleep Apnea/CPAP/BIPAP, Thyroid Disorder Additional Past Medical History / Comment(s): hx. gastric ulcer, nephrolithiasis, no longer needs thyroid med, was tx. for years w/[place] for RLS because of "shaking" all over-actually made her sx. worse, now just has shaking @times lower part of body-believes it is from PTSD in past History of Any Multi-Drug Resistant Organisms: ESBL Date of last positivie culture/infection: 08/24/17 MDRO Source:: URINE Past Surgical History: Adenoidectomy, Appendectomy, Hysterectomy, Orthopedic Surgery, Tonsillectomy Additional Past Surgical History / Comment(s): Strabismus correction. cataracts- lens implants, blepharoplasty, lithotripsy, left hip replacment 03/28/21 Past Anesthesia/Blood Transfusion Reactions: No Reported Reaction Past Psychological History: Panic Disorder, PTSD Smoking Status: Never smoker Past Alcohol Use History: None Reported Past Drug Use History: None Reported - Past Family History Father Additional Family Medical History / Comment(s): cardiac problems Mother Additional Family Medical History / Comment(s): mom fom old age General Exam - General Exam Comments Initial Comments: GENERAL: Patient is well-developed and well-nourished. Patient is nontoxic and well- hydrated and is in no acute distress. ENT: Neck is soft and supple. No significant lymphadenopathy is noted. Oropharynx is clear. Moist mucous membranes. Neck has full range of motion without eliciting any pain. EYES: The sclera were anicteric and conjunctiva were pink and moist. Extraocular movements were intact and pupils were equal round and reactive to light. Eyelids were unremarkable. PULMONARY: Unlabored respirations. Good breath sounds bilaterally. No audible rales rhonchi or wheezing was noted. CARDIOVASCULAR: There is a regular rate and rhythm without any murmurs gallops or rubs ABDOMEN: Soft and nontender with normal bowel sounds. SKIN: Skin is clear with no lesions or rashes and otherwise unremarkable. NEUROLOGIC: Patient is alert and oriented x3. Cranial nerves II through XII are grossly intact. Motor and sensory are also intact. Normal speech, volume and content. Symmetrical smile. MUSCULOSKELETAL: Normal extremities with adequate strength and full range of motion. LYMPHATICS: No significant lymphadenopathy is noted PSYCHIATRIC: Normal psychiatric evaluation. Limitations: no limitations Course Vital Signs 01/15/22 01/15/22 01/15/22 16:23 19:30 19:41 Temperature 97.9 F Pulse Rate 82 83 Respiratory 18 Rate Blood Pressure 163/87 219/95 232/105 O2 Sat by Pulse 99 Oximetry 01/15/22 01/15/22 19:51 20:20 Temperature Pulse Rate 86 Respiratory Rate Blood Pressure 189/83 174/83 O2 Sat by Pulse Oximetry Medical Decision Making - Medical Decision Making Patient remained asymptomatic throughout her ED course. Patient received 20 mg of hydralazine which brought her blood pressure down nicely. - Lab Data Result diagrams: 01/15/22 19:48 01/15/22 19:48 Lab Results 01/15/22 01/15/22 01/15/22 Range/Units 19:48 19:48 19:48 WBC 6.9 (3.8-10.6) k/uL RBC 4.41 (3.80-5.40) m/uL Hgb 13.5 (11.4-16.0) gm/dL Hct 43.0 (34.0-46.0) % MCV 97.5 (80.0-100.0) fL MCH 30.7 (25.0-35.0) pg MCHC 31.5 (31.0-37.0) g/dL RDW 13.2 (11.5-15.5) % Plt Count 159 (150-450) k/uL MPV 8.8 Neutrophils % 62 % Lymphocytes % 24 % Monocytes % 7 % Eosinophils % 4 % Basophils % 1 % Neutrophils # 4.3 (1.3-7.7) k/uL Lymphocytes # 1.7 (1.0-4.8) k/uL Monocytes # 0.5 (0-1.0) k/uL Eosinophils # 0.3 (0-0.7) k/uL Basophils # 0.1 (0-0.2) k/uL Sodium 136 L (137-145) mmol/L Potassium 3.9 (3.5-5.1) mmol/L Chloride 103 (98-107) mmol/L Carbon Dioxide 22 (22-30) mmol/L Anion Gap 11 mmol/L BUN 23 H (7-17) mg/dL Creatinine 0.94 (0.52-1.04) mg/dL Est GFR (CKD-EPI)AfAm 62 (>60 ml/min/1.73 sqM) Est GFR (CKD-EPI)NonAf 54 (>60 ml/min/1.73 sqM) Glucose 82 (74-99) mg/dL Calcium 9.9 (8.4-10.2) mg/dL Magnesium 1.7 (1.6-2.3) mg/dL Total Bilirubin 0.5 (0.2-1.3) mg/dL AST 29 (14-36) U/L ALT 11 (4-34) U/L Alkaline Phosphatase 134 H (38-126) U/L Troponin I <0.012 (0.000-0.034) ng/mL Total Protein 6.7 (6.3-8.2) g/dL Albumin 4.1 (3.5-5.0) g/dL Disposition Clinical Impression: Hypertensive urgency Disposition: HOME SELF-CARE Condition: Good Instructions (If sedation given, give patient instructions): Hypertension (ED) Prescriptions: hydrALAZINE HCL [Apresoline] 10 mg PO BID #20 tablet Is patient prescribed a controlled substance at d/c from ED?: No Referrals: Carlos Lewis [Primary Care Provider] - 1-2 days Time of Disposition: 20:31
[2022-01-15 20:07] LABS: Basophils # (A) 0.1 k/uL (0-0.2); Basophils % (A) 1 %; Eosinophils # (A) 0.3 k/uL (0-0.7); Eosinophils % (A) 4 %; HGB 13.5 gm/dL (11.4-16.0); Lymphocytes # (A) 1.7 k/uL (1.0-4.8); Lymphocytes % (A) 24 %; MCH 30.7 pg (25.0-35.0); MCHC 31.5 g/dL (31.0-37.0); MCV 97.5 fL (80.0-100.0); Mean Platelet Volume 8.8; Monocytes # (A) 0.5 k/uL (0-1.0); Monocytes % (A) 7 %; Neutrophils # (A) 4.3 k/uL (1.3-7.7); Neutrophils % (A) 62 %; Platelet Count 159 k/uL (150-450); RBC 4.41 m/uL (3.80-5.40); RDW 13.2 % (11.5-15.5); WBC 6.9 k/uL (3.8-10.6)
[2022-01-15 20:10] LABS: Albumin 4.1 g/dL (3.5-5.0); Calcium 9.9 mg/dL (8.4-10.2); Magnesium 1.7 mg/dL (1.6-2.3); Potassium 3.9 mmol/L (3.5-5.1); Total Bilirubin 0.5 mg/dL (0.2-1.3); Total Protein 6.7 g/dL (6.3-8.2)
[2022-01-15] MEDS ORDERED: HYDROcodone/APAP 5-325MG 1 EACH TAB PO STA (20:16)
[2022-01-15 21:07] VITALS: BP 172/74; PULSE 105
== END 2022-01-15 21:14 | disposition home or self-care (01) ==
LOC: EC 16:01
DX: I16.0 Hypertensive urgency (principal); E78.5 Hyperlipidemia, unspecified; I10 Essential (primary) hypertension; M19.90 Unspecified osteoarthritis, unspecified site; E07.9 Disorder of thyroid, unspecified
CPT/HCPCS: 36415; 93005; 80053; 83735; 84484; 85025; 99282; 96374; J0360

== ENCOUNTER 2022-06-03 16:39 | Inpatient (IN) | payer MEDICARE ==
[2022-06-03] MEDS ORDERED: SODIUM CHLORIDE 0.9% 1,000 ML IV STA (17:48)
[2022-06-03 18:25] LABS: Basophils % (A) 0 %; Eosinophils # (A) 0.1 k/uL (0-0.7); Eosinophils % (A) 1 %; HCT 41.6 % (34.0-46.0); HGB 13.8 gm/dL (11.4-16.0); Lymphocytes # (A) 0.9 k/uL (1.0-4.8); Lymphocytes % (A) 10 %; MCH 33.1 pg (25.0-35.0); MCHC 33.2 g/dL (31.0-37.0); MCV 99.7 fL (80.0-100.0); Mean Platelet Volume 8.6; Monocytes # (A) 0.5 k/uL (0-1.0); Monocytes % (A) 5 %; Neutrophils # (A) 7.3 k/uL (1.3-7.7); Neutrophils % (A) 81 %; Platelet Count 178 k/uL (150-450); RBC 4.17 m/uL (3.80-5.40); RDW 13.2 % (11.5-15.5)
--- NOTE | 2022-06-03 18:26 | ED ---
Fall HPI - General Chief Complaint: Fall Stated Complaint: Fall Time Seen by Provider: 06/03/22 17:23 Source: patient, EMS, Caregiver Mode of arrival: EMS - History of Present Illness Initial Comments: 89-year-old female brought in for evaluation for frequent falls recently she f ell against a table last evening complains of severe right-sided flank lower rib pain. She believes she did not hit her head or neck also though she is been suffering from insomnia recently not sleeping well. No reports of fevers chills nausea vomiting sweats. Patient is on blood thinners MD Complaint: fall - Related Data Home Medications Medication Instructions Recorded Confirmed HYDROcodone/APAP 5-325MG [[place] 1 tab PO TID PRN 08/15/19 01/09/22 5-325] Furosemide [Lasix] 20 mg PO DAILY 03/01/21 01/09/22 ramipriL [Altace] 15 mg PO DAILY 03/01/21 01/09/22 Ibuprofen [Motrin Ib] 200 mg PO Q6H PRN 03/22/21 01/09/22 Pantoprazole [Protonix] 40 mg PO DAILY 03/22/21 01/09/22 Previous Rx's Medication Instructions Recorded hydrALAZINE HCL [Apresoline] 10 mg PO BID #20 tablet 01/15/22 Allergies Allergy/AdvReac Type Severity Reaction Status Date / Time No Known Allergies Allergy Verified 06/03/22 16:48 Review of Systems ROS Statement: Those systems with pertinent positive or pertinent negative responses have been documented in the HPI. ROS Other: All systems not noted in ROS Statement are negative. Past Medical History Past Medical History: Hyperlipidemia, Hypertension, Osteoarthritis (OA), Sleep Apnea/CPAP/BIPAP, Thyroid Disorder Additional Past Medical History / Comment(s): hx. gastric ulcer, nephrolithias is, no longer needs thyroid med, was tx. for years w/[place] for RLS because of "shaking" all over-actually made her sx. worse, now just has shaking @times lower part of body-believes it is from PTSD in past History of Any Multi-Drug Resistant Organisms: ESBL Date of last positivie culture/infection: 08/24/17 MDRO Source:: URINE Past Surgical History: Adenoidectomy, Appendectomy, Hysterectomy, Orthopedic Surgery, Tonsillectomy Additional Past Surgical History / Comment(s): Strabismus correction. cataracts- lens implants, blepharoplasty, lithotripsy, left hip replacment 03/28/21 Past Anesthesia/Blood Transfusion Reactions: No Reported Reaction Past Psychological History: Panic Disorder, PTSD Smoking Status: Current every day smoker Past Alcohol Use History: Heavy Past Drug Use History: Marijuana - Past Family History Father Additional Family Medical History / Comment(s): cardiac problems Mother Additional Family Medical History / Comment(s): mom fom old age General Exam - General Exam Comments Initial Comments: This is a well-developed well-nourished awake alert oriented 6 female [place] Coma Scale of 15 Limitations: no limitations General appearance: alert Head exam: Present: atraumatic, normocephalic, normal inspection Eye exam: Present: normal appearance, PERRL, EOMI. Absent: scleral icterus, conjunctival injection, periorbital swelling ENT exam: Present: mucous membranes dry Neck exam: Present: normal inspection, full ROM, other (No stridor JVD or bruits). Absent: tenderness, meningismus, lymphadenopathy Respiratory exam: Present: normal lung sounds bilaterally, chest wall tenderness (Left lateral inferior chest wall tenderness no definite of step-off or crepitation some ecchymosis seen in this area). Absent: respiratory distress, wheezes, rales, rhonchi, stridor Cardiovascular Exam: Present: regular rate, normal rhythm, normal heart sounds. Absent: systolic murmur, diastolic murmur, rubs, gallop, clicks GI/Abdominal exam: Present: soft, tenderness (Flank tenderness no overt guarding or rebound mild tenderness on palpation over the left side the abdomen.), normal bowel sounds. Absent: distended, guarding, rebound, rigid Rectal exam: Present: deferred Extremities exam: Present: normal inspection, full ROM, normal capillary refill, other (No tenderness on palpation of the hips head neck or back additionally. Some evidence of stasis changes and bruising to the lower extremities). Absent: tenderness, pedal edema, joint swelling, calf tenderness Back exam: Present: normal inspection. Absent: tenderness Neurological exam: Present: alert, oriented X3, CN II-XII intact Psychiatric exam: Present: normal affect, normal mood Skin exam: Present: warm, dry, intact. Absent: normal color (As above), rash Course Vital Signs 0106/03/22 06/03/22 16:41 18:50 20:35 Temperature 98.0 F Pulse Rate 71 66 86 Respiratory 17 20 16 Rate Blood Pressure 174/74 181/84 189/90 O2 Sat by Pulse 97 98 99 Oximetry Medical Decision Making - Medical Decision Making I did discuss findings with patient family patient is demonstrating right-sided pain at the site of the rib fracture. No evidence of any other internal injuries however she is somewhat weak does also demonstrate evidence of renal insufficiency dehydration. I did discuss the case with Dr. Ward as well as with Dr. Lozano. Patient will be admitted IV hydration pain control family is in agreement as well as the patient.Was pt. sent in by a medical professional or institution (, PA, PHARMACOGNOSIST, urgent care, hospital, or [place] health care facility...) When possible be specific @ -[No] Did you speak to anyone other than the patient for history (EMS, parent, family, police, friend...)? What history was obtained from this source @ -[EMS] Did you review nursing and triage notes (agree or disagree)? Why? @ -[I reviewed and agree with nursing and triage notes] Were old charts reviewed (outside hosp., previous admission, EMS record, old EKG, old radiological studies, urgent care reports/EKG's, [place] health care facility records)? Report findings @ -[ old charts were reviewed] Differential Diagnosis (chest pain, altered mental status, abdominal pain women, abdominal pain men, vaginal bleeding, weakness, fever, dyspnea, syncope, headache, dizziness, GI bleed, back pain, seizure, CVA, palpatations, mental health)? @ -[Chest pain, rib fracture, pneumothorax, intra-abdominal organ injury] EKG interpreted by me (3pts min.). @ -[As above] X-rays interpreted by me (1pt min.). @ -[As above] CT interpreted by me (1pt min.). @ -[As above] U/S interpreted by me (1pt. min.). @ -[None done] What testing was considered but not performed or refused? (CT, X-rays, U/S, labs)? Why? @ -[None] What meds were considered but not given or refused? Why? @ -[None] Did you discuss the management of the patient with other professionals (professionals i.e. , PA, PHARMACOGNOSIST, lab, RT, psych nurse, clinical social work therapist, retail salesperson, teacher, stream control officer, case therapist)? Give summary @ -[Dr. Ward, Dr. Lozano] Was smoking cessation discussed for >3mins.? @ -[No] Was critical care preformed (if so, how long)? @ -[No] Were there social determinants of health that impacted care today? How? (Homelessness, low income, unemployed, alcoholism, drug addiction, transportation, low edu. Level, literacy, decrease access to med. care, residential, rehab)? @ -[Lives alone] Was there de-escalation of care discussed even if they declined (Discuss DNR or withdrawal of care, Hospice)? DNR status @ -[No] What co-morbidities impacted this encounter? (DM, HTN, Smoking, COPD, CAD, Cancer, CVA, ARF, Chemo, Hep., AIDS, mental health diagnosis, sleep apnea, morbid obesity)? @ -[Elderly] Was patient admitted / discharged? Hospital course, mention meds given and route, prescriptions, significant lab abnormalities, going to OR and other pertinent info. @ -[hospital course] admitted Undiagnosed new problem with uncertain prognosis? @ -[No] Drug Therapy requiring intensive monitoring for toxicity (Heparin, Nitro, I nsulin, Cardizem)? @ -[No] Were any procedures done? @ -[No] Diagnosis/symptom? @ -[default] Acute, or Chronic, or Acute on Chronic? @ -[default] Uncomplicated (without systemic symptoms) or Complicated (systemic symptoms)? @ -[default] Side effects of treatment? @ -[No] Exacerbation, Progression, or Severe Exacerbation? @ -[No] Poses a threat to life or bodily function? How? (Chest pain, [place], VA, pneumonia, PE, COPD, DKA, ARF, appy, cholecystitis, CVA, Diverticulitis, Homicidal, Suicidal, threat to staff... and all critical care pts) @ -[No] - Lab Data Result diagrams: 06/03/22 17:59 06/03/22 17:59 Lab Results 06/03/22 06/03/22 06/03/22 Range/Units 17:59 17:59 17:59 WBC 9.0 (3.8-10.6) k/uL RBC 4.17 (3.80-5.40) m/uL Hgb 13.8 (11.4-16.0) gm/dL Hct 41.6 (34.0-46.0) % MCV 99.7 (80.0-100.0) fL MCH 33.1 (25.0-35.0) pg MCHC 33.2 (31.0-37.0) g/dL RDW 13.2 (11.5-15.5) % Plt Count 178 (150-450) k/uL MPV 8.6 Neutrophils % 81 % Lymphocytes % 10 % Monocytes % 5 % Eosinophils % 1 % Basophils % 0 % Neutrophils # 7.3 (1.3-7.7) k/uL Lymphocytes # 0.9 L (1.0-4.8) k/uL Monocytes # 0.5 (0-1.0) k/uL Eosinophils # 0.1 (0-0.7) k/uL Basophils # 0.0 (0-0.2) k/uL PT 10.1 (9.0-12.0) sec INR 0.9 (<1.2) APTT 24.7 (22.0-30.0) sec Sodium 139 (137-145) mmol/L Potassium 4.7 (3.5-5.1) mmol/L Chloride 107 (98-107) mmol/L Carbon Dioxide 24 (22-30) mmol/L Anion Gap 8 mmol/L BUN 38 H (7-17) mg/dL Creatinine 1.21 H (0.52-1.04) mg/dL Est GFR (CKD-EPI)AfAm 46 (>60 ml/min/1.73 sqM) Est GFR (CKD-EPI)NonAf 40 (>60 ml/min/1.73 sqM) Glucose 93 (74-99) mg/dL Plasma Lactic Acid Don (0.7-2.0) mmol/L Calcium 9.6 (8.4-10.2) mg/dL Magnesium 2.0 (1.6-2.3) mg/dL Total Bilirubin 0.5 (0.2-1.3) mg/dL AST 32 (14-36) U/L ALT 18 (4-34) U/L Alkaline Phosphatase 123 (38-126) U/L Creatine Kinase 171 H (30-135) U/L Troponin I (0.000-0.034) ng/mL Total Protein 7.5 (6.3-8.2) g/dL Albumin 4.4 (3.5-5.0) g/dL Lipase 234 (23-300) U/L 06/03/22 06/03/22 Range/Units 17:59 17:59 WBC (3.8-10.6) k/uL RBC (3.80-5.40) m/uL Hgb (11.4-16.0) gm/dL Hct (34.0-46.0) % MCV (80.0-100.0) fL MCH (25.0-35.0) pg MCHC (31.0-37.0) g/dL RDW (11.5-15.5) % Plt Count (150-450) k/uL MPV Neutrophils % % Lymphocytes % % Monocytes % % Eosinophils % % Basophils % % Neutrophils # (1.3-7.7) k/uL Lymphocytes # (1.0-4.8) k/uL Monocytes # (0-1.0) k/uL Eosinophils # (0-0.7) k/uL Basophils # (0-0.2) k/uL PT (9.0-12.0) sec INR (<1.2) APTT (22.0-30.0) sec Sodium (137-145) mmol/L Potassium (3.5-5.1) mmol/L Chloride (98-107) mmol/L Carbon Dioxide (22-30) mmol/L Anion Gap mmol/L BUN (7-17) mg/dL Creatinine (0.52-1.04) mg/dL Est GFR (CKD-EPI)AfAm (>60 ml/min/1.73 sqM) Est GFR (CKD-EPI)NonAf (>60 ml/min/1.73 sqM) Glucose (74-99) mg/dL Plasma Lactic Acid Don 1.2 (0.7-2.0) mmol/L Calcium (8.4-10.2) mg/dL Magnesium (1.6-2.3) mg/dL Total Bilirubin (0.2-1.3) mg/dL AST (14-36) U/L ALT (4-34) U/L Alkaline Phosphatase (38-126) U/L Creatine Kinase (30-135) U/L Troponin I <0.012 (0.000-0.034) ng/mL Total Protein (6.3-8.2) g/dL Albumin (3.5-5.0) g/dL Lipase (23-300) U/L - EKG Data -: EKG Interpreted by Me EKG Comments: EKG interpreted by me shows sinus rhythm of 81. Interval 181 QRS duration 82 QT since QTC 375/413 occasional PACs low-voltage minimal voltage criteria for LVH - Radiology Data Interpreted by me: I did interpret the imaging x-rays are unremarkable computed tomography scan was negative except for evidence of isolated right ninth rib fracture. Disposition Clinical Impression: Fall, Rib fracture, Chest wall contusion, Dehydration, Renal insufficiency Disposition: ADMITTED IP TO THIS [facility] Condition: Stable Referrals: Nathaniel Leon MD [Primary Care Provider] - 1-2 days Decision Date: 06/03/22 Decision Time: 21:00
[2022-06-03 18:38] LABS: INR 0.9 (<1.2); Partial Thromboplastin Time 24.7 sec (22.0-30.0); Prothrombin Time 10.1 sec (9.0-12.0)
[2022-06-03 18:51] LABS: Albumin 4.4 g/dL (3.5-5.0); Calcium 9.6 mg/dL (8.4-10.2); Potassium 4.7 mmol/L (3.5-5.1); Total Bilirubin 0.5 mg/dL (0.2-1.3); Total Protein 7.5 g/dL (6.3-8.2)
--- NOTE | 2022-06-03 19:20 | XR ---
EXAMINATION TYPE: XR chest 2V DATE OF EXAM: 06/03/2022 COMPARISON: 08/28/19 HISTORY: Shortness of breath TECHNIQUE: Frontal and lateral views of the chest are obtained. FINDINGS: Scattered senescent parenchymal changes noted. No evidence for infiltrate. No evidence for atelectasis. Heart size is stable. Mediastinal structures are stable and grossly unremarkable. No evidence for hilar prominence. Degenerative changes dorsal spine. IMPRESSION: 1. No evidence for acute pulmonary disease.
--- NOTE | 2022-06-03 19:48 | CT ---
EXAMINATION TYPE: CT brain wo con DATE OF EXAM: 06/03/2022 COMPARISON: 01/09/22 HISTORY: fall CT DLP: 991.[address] of the brain was performed. The ventricles, basal cisterns and sulci overlying the cerebral convexities demonstrate mild enlargem ent. There is no evidence for intracranial hemorrhage or sulcal effacement. There is decreased attenuation about the periventricular white matter and deep white matter of both c erebral hemispheres, compatible with chronic small vessel ischemia. Differential diagnosis does inclu de demyelination. No mass effects are seen.No midline shift. Osseous calvarium is intact. If symptoms persist consider MRI. IMPRESSION: 1. Age related atrophic and chronic small vessel ischemic change without acute intracranial process s een at this time.
--- NOTE | 2022-06-03 20:08 | CT ---
EXAMINATION TYPE: CT ChestAbdPelvis w con DATE OF EXAM: 06/03/2022 COMPARISON: HISTORY: fall CT DLP: 1093.6 mGycm CONTRAST: Contrast enhanced Trauma CT of the Chest, Abdomen and Pelvis is performed with IV Contrast, patient i njected with 65cc mL of Isovue 300. Chest: LUNGS: There is no evidence for pneumothorax. The lungs are clear and free of focal contusion or ate lectasis. No pleural effusion MEDIASTINUM: Thoracic aorta is of normal caliber without CT evidence to suggest traumatic induced ao rtic injury. No mediastinal fluid or blood. No pericardial fluid or cardia abnormality. HILAR STRUCTURES: No evidence for mass. No hilar adenopathy is appreciated. OTHER: No significant abnormality. OSSEOUS: Nondisplaced fracture right rib anteriorly #9 seen best on sagittal data sets thousand and [address] ABDOMEN AND PELVIS FINDINGS: LIVER/GB: No focal laceration, contusion or subcapsular hemorrhage. Soft gallstones noted. No space occupying hepatic lesion. Biliary tree is of normal caliber. PANCREAS: No evidence for transection. No inflammation. No distinct mass. SPLEEN: No focal laceration, contusion or subcapsular hemorrhage. ADRENALS: No hemorrhage. No nodule. No thickening. KIDNEYS/BLADDER: No focal laceration, contusion or subcapsular hemorrhage. Nonobstructing left renal calculus. Simple cysts seen bilaterally. BOWEL: Bowel is intact. No evidence for pneumoperitoneum. GENITAL ORGANS: No gross abnormality. LYMPH NODES: No greater than 1cm abdominal or pelvic lymph nodes are appreciated. AORTA: No traumatic aortic injury visualized. OSSEOUS STRUCTURES: Left hip prosthesis noted. OTHER: No evidence for hemoperitoneum. IMPRESSION: 1. Nondisplaced fracture right rib #9. Otherwise unremarkable study. 2. No evidence for traumatic injury to the abdomen or pelvis.
[2022-06-03] MEDS ORDERED: HYDROmorphone 0.5 MG/0.5 ML SYRINGE IVP PRN (21:37)
[2022-06-03] MEDS ORDERED: NALOXONE 0.4 MG/ML 1 ML VIAL IV PRN (21:37)
[2022-06-03] MEDS ORDERED: ACETAMINOPHEN TAB 325 MG TAB PO PRN (21:37)
[2022-06-03] MEDS ORDERED: HYDROmorphone 0.5 MG/0.5 ML SYRINGE IVP STA (21:39)
[2022-06-03] MEDS: SODIUM CHLORIDE 0.9% 1,000 ML IV SCH (22:15)
--- NOTE | 2022-06-04 02:18 | P.CONS ---
History of Present Illness - Reason for Consult Consult date: 06/03/22 - History of Present Illness The patient is a 89-year-old female with a PMH of hypertension and depression who had been brought to the emergency room after a fall with complaints of right chest pain. The patient who lives independently states that she had recently been falling morning at home, most recently falling twice earlier today where she lost her balance while using her walker, falling and hitting her right chest wall on the kitchen dining table. She had immediate pain at the bedside, and activated her medical alert bracelet. She denied experiencing loss of consciousness or head trauma. At time of interview, her only complaint was right pleuritic lateral chest wall pain at the site of the trauma. She denied nausea, vomiting, palpitations, abdominal pain, lower extremity swelling, lower extremity pain. She underwent an extensive evaluation in the emergency room with a CT chest abdomen and pelvis with contrast showing a nondisplaced right rib #[address] brain was unremarkable with no acute abnormalities. EKG revealed sinus rhythm with PVCs at 81 bpm with T-wave inversion in leads III and V2. Chest x- ray was unremarkable. Laboratory evaluation was remarkable for creatinine of 1.21, up slightly from 0.94 on 01/23. The patient was admitted to the surgery service with medicine on consult. Review of systems: Pertinent positives and negatives as discussed in HPI, a complete review of sy stems was performed and all other systems are negative. Physical examination: General: non toxic, no distress, appears at stated age, normal weight Derm: Thin skin overlying bilateral lower extremities with diffuse ecchymosis, warm Head: atraumatic, normocephalic, symmetric Eyes: EOMI, no lid lag, anicteric sclera, pupils equal round reactive to light ENT: Nose and ears atraumatic Neck: No cervical lymphadenopathy, trachea midline, supple Mouth: no lip lesion, mucus membranes moist Cardiovascular: S1S2 reg, no murmur, positive dorsalis pedis pulse bilateral, no edema Lungs: CTA bilateral, no rhonchi, no rales, no accessory muscle use, right lateral chest wall tenderness to palpation Abdominal: soft, nontender to palpation, no guarding Ext: muscle strength 5 out of 5 in all 4 extremities grossly, no gross muscle atrophy, no contractures, Neuro: CN II-XI grossly intact, no gross focal neuro deficits Psych: Alert, oriented, appropriate affect Assessment/plan Acute kidney injury, mild -IV fluids -Monitor BMP -Hold off on home diuretic Chronic conditions: Hypertension -Continue with home lisinopril -Hold off on home diuretic Right rib fracture status post trauma -Defer management including pain control and DVT prophylaxis to the primary surgery service Past Medical History Past Medical History: Hyperlipidemia, Hypertension, Osteoarthritis (OA), Sleep Apnea/CPAP/BIPAP, Thyroid Disorder Additional Past Medical History / Comment(s): hx. gastric ulcer, nephrolithiasis, no longer needs thyroid med, was tx. for years w/[place] for RLS because of "shaking" all over-actually made her sx. worse, now just has shaking @times lower part of body-believes it is from PTSD in past History of Any Multi-Drug Resistant Organisms: ESBL Year Discovered:: 08/24/17 MDRO Source:: URINE Past Surgical History: Adenoidectomy, Appendectomy, Hysterectomy, Orthopedic Surgery, Tonsillectomy Additional Past Surgical History / Comment(s): Strabismus correction. cataracts- lens implants, blepharoplasty, lithotripsy, left hip replacment 03/28/21 Past Anesthesia/Blood Transfusion Reactions: No Reported Reaction Past Psychological History: Panic Disorder, PTSD Smoking Status: Current every day smoker Past Alcohol Use History: Heavy Past Drug Use History: Marijuana - Past Family History Father Additional Family Medical History / Comment(s): cardiac problems Mother Additional Family Medical History / Comment(s): mom fom old age Medications and Allergies Home Medications Medication Instructions Recorded Confirmed Type HYDROcodone/APAP 5-325MG [[place] 1 tab PO BID PRN 08/15/19 06/03/22 History 5-325] Furosemide [Lasix] 20 mg PO DAILY PRN 03/01/21 06/03/22 History Sertraline [Zoloft] 100 mg PO DAILY 06/03/22 06/03/22 History hydroCHLOROthiazide 12.5 mg PO DAILY 06/03/22 06/03/22 History lisinopriL [Zestril] 20 mg PO DAILY 06/03/22 06/03/22 History Allergies Allergy/AdvReac Type Severity Reaction Status Date / Time No Known Allergies Allergy Verified 06/03/22 22:20 Physical Exam Vitals: Vital Signs Temp Pulse Resp BP Pulse Ox 06/04/22 02:00 67 13 139/63 97 06/03/22 22:34 88 16 128/64 99 06/03/22 20:35 86 16 189/90 99 06/03/22 18:50 66 20 181/84 98 06/03/22 16:41 98.0 F 71 17 174/74 97 Intake and Output 06/03/22 06/03/22 06/04/22 14:59 22:59 06:59 Other: Weight 58.967 kg Results CBC & Chem 7: 06/03/22 17:59 06/03/22 17:59 Labs: Abnormal Lab Results - Last 24 Hours (Table) 06/03/22 06/03/22 Range/Units 17:59 17:59 Lymphocytes # 0.9 L (1.0-4.8) k/uL BUN 38 H (7-17) mg/dL Creatinine 1.21 H (0.52-1.04) mg/dL Creatine Kinase 171 H (30-135) U/L
[2022-06-04 07:19] LABS: Appearance,Urine Clear (Clear); Bilirubin,Urine Negative (Negative); Blood,Urine Negative (Negative); Color,Urine Light Yellow; Glucose,Urine (UA) Negative (Negative); Ketones,Urine Negative (Negative); Leukocyte Esterase,Urine Negative (Negative); Nitrite,Urine Negative (Negative); PH, Urine 5.5 (5.0-8.0); Protein,Urine Trace (Negative); Specific Gravity,Urine 1.027 (1.001-1.035); Urobilinogen,Urine <2.0 mg/dL (<2.0)
[2022-06-04] MEDS: PANTOPRAZOLE 40 MG TABLET PO SCH (09:10)
[2022-06-04] MEDS: lisinopriL 20 MG TAB PO SCH (09:10)
[2022-06-04] MEDS: hydrALAZINE HCL 10 MG TAB PO SCH ×2 (09:10→21:50)
[2022-06-04] MEDS: guaiFENesin 600 MG TABLET.ER PO SCH ×2 (10:20→21:50)
[2022-06-04] MEDS: SERTRALINE 100 MG TAB PO SCH (10:20)
--- NOTE | 2022-06-04 10:59 | XR ---
EXAMINATION TYPE: XR chest 2V DATE OF EXAM: 06/04/2022 COMPARISON: 06/03/2022 HISTORY: Shortness of breath TECHNIQUE: Frontal and lateral views of the chest are obtained. FINDINGS: Scattered senescent parenchymal changes noted. Hyperinflation compatible with COPD. No evidence for infiltrate. No evidence for atelectasis. Heart size is stable. Mediastinal structures are stable and grossly unremarkable. No evidence for hilar prominence. Degenerative changes dorsal spine. IMPRESSION: 1. No evidence for acute pulmonary disease.
--- NOTE | 2022-06-04 11:48 | P.GSHP ---
History of Present Illness H&P Date: 06/04/22 CHIEF COMPLAINT: Fall with right-sided rib pain HISTORY OF PRESENT ILLNESS: This is a 89-year-old female who lives independently. Patient has been having frequent falls. Thursday evening she fell hitting her right rib cage the table. She denies any loss of consciousness. She denies hitting her head. She denies any injury to her abdomen or extremities. Patient reports that she had gone to bed that night but did wake up with increasing pain with breathing and pain in the right rib cage. She was brought into the ER for further evaluation which shows nondisplaced fracture right rib #9. Otherwise no evidence of trochanteric injury to the abdomen or pelvis. Patient also had evidence of dehydration and acute kidney injury. It started on IV fluids for hydration. And admitted to the hospital for pain control regarding rib fracture. Patient admitted to the trauma service. Patient denies being on any blood thinners PAST MEDICAL HISTORY: Insomnia, Hyperlipidemia, Hypertension, Osteoarthritis (OA), Sleep Apnea/CPAP/BIPAP, Thyroid Disorder, gastric ulcer, kidney stones PAST SURGICAL HISTORY: Adenoidectomy, Appendectomy, Hysterectomy, Orthopedic Surgery, Tonsillectomy MEDICATIONS: See below ALLERGIES: See below SOCIAL HISTORY: No illicit drug use. REVIEW OF SYSTEMS: CONSTITUTIONAL: Denies fever or chills. HEENT: Denies blurred vision, vision changes, or eye pain. Denies hemoptysis CARDIOVASCULAR: Denies chest pain or pressure. RESPIRATORY: No shortness of breath. GASTROINTESTINAL: See HPI for pertinent findings HEMATOLOGIC: Denies bleeding disorders. GENITOURINARY: Denies any blood in urine or increased urinary frequency. SKIN: Denies pruitis. Denies rash. PHYSICAL EXAM: VITAL SIGNS: Reviewed GENERAL: Well-developed in no acute distress. HEENT: No sclera icterus. Extraocular movements grossly intact. Moist buccal mucosa. Head is atraumatic, normocephalic. No nasal drainage. Chest tenderness palpation of the lower right chest wall. No bruising noted ABDOMEN: Soft. Nondistended. Nontender NEUROLOGIC: Alert and oriented. Cranial nerves II through XII grossly intact. Able to move all 4 extremities LABORATORY DATA: WBC 9.0 hemoglobin 13.8 platelets 178 INR 0.9 Sodium 139 potassium is 4.7 creatinine 1.21 Lactic acid 1.2 Magnesium 2.0 liver enzymes normal troponin less than 0.012 Lipase 234 Urinalysis negative for infection IMAGING: computed tomography scan chest abdomen pelvis nondisplaced fracture right rib #9. Otherwise unremarkable study. No evidence for traumatic injury to the abdomen or pelvis. ASSESSMENT: 1. Fall with fracture to the right rib 2. Nondisplaced fracture right rib #9 3. Dehydration and acute kidney injury PLAN: -Follow up chest x-ray ordered for today -Encourage patient to use incentive spirometer -[place] and Lidoderm patch added for pain management -Encourage patient to use incentive spirometer -Continue to monitor oxygen level -Consult PT OT -Encourage patient to increase activity level -Continue regular diet -Continue IV fluids -Medicine consulted for medical management -GI prophylaxis Protonix and DVT prophylaxis subcu heparin Physician [employer] Clerk note has been reviewed by physician. Signing provider agrees with the documented findings, assessment, and plan of care. Past Medical History Past Medical History: Hyperlipidemia, Hypertension, Osteoarthritis (OA), Sleep Apnea/CPAP/BIPAP, Thyroid Disorder Additional Past Medical History / Comment(s): hx. gastric ulcer, nephrolithiasis, no longer needs thyroid med, was tx. for years w/[place] for RLS because of "shaking" all over-actually made her sx. worse, now just has shaking @times lower part of body-believes it is from PTSD in past History of Any Multi-Drug Resistant Organisms: ESBL Date of last positivie culture/infection: 08/24/17 MDRO Source:: URINE Past Surgical History: Adenoidectomy, Appendectomy, Hysterectomy, Orthopedic Surgery, Tonsillectomy Additional Past Surgical History / Comment(s): Strabismus correction. cataracts- lens implants, blepharoplasty, lithotripsy, left hip replacment 03/28/21 Past Anesthesia/Blood Transfusion Reactions: No Reported Reaction Past Psychological History: Panic Disorder, PTSD Smoking Status: Current every day smoker Past Alcohol Use History: Heavy Past Drug Use History: Marijuana - Past Family History Father Additional Family Medical History / Comment(s): cardiac problems Mother Additional Family Medical History / Comment(s): mom fom old age Medications and Allergies Home Medications Medication Instructions Recorded Confirmed Type HYDROcodone/APAP 5-325MG [[place] 1 tab PO BID PRN 08/15/19 06/03/22 History 5-325] Furosemide [Lasix] 20 mg PO DAILY PRN 03/01/21 06/03/22 History Sertraline [Zoloft] 100 mg PO DAILY 06/03/22 06/03/22 History hydroCHLOROthiazide 12.5 mg PO DAILY 06/03/22 06/03/22 History lisinopriL [Zestril] 20 mg PO DAILY 06/03/22 06/03/22 History Allergies Allergy/AdvReac Type Severity Reaction Status Date / Time No Known Allergies Allergy Verified 06/03/22 22:20 Surgical - Exam Vital Signs Temp Pulse Resp BP Pulse Ox 98.0 F 71 17 174/74 97 06/03/22 16:41 06/03/22 16:41 06/03/22 16:41 06/03/22 16:41 06/03/22 16:41 Results - Labs 06/03/22 17:59 06/03/22 17:59 Abnormal Lab Results - Last 24 Hours (Table) 06/03/22 06/03/22 06/04/22 Range/Units 17:59 17:59 06:57 Lymphocytes # 0.9 L (1.0-4.8) k/uL BUN 38 H (7-17) mg/dL Creatinine 1.21 H (0.52-1.04) mg/dL Creatine Kinase 171 H (30-135) U/L Urine Protein Trace H (Negative) Diabetes panel 06/03/22 Range/Units 17:59 Sodium 139 (137-145) mmol/L Potassium 4.7 (3.5-5.1) mmol/L Chloride 107 (98-107) mmol/L Carbon Dioxide 24 (22-30) mmol/L BUN 38 H (7-17) mg/dL Creatinine 1.21 H (0.52-1.04) mg/dL Glucose 93 (74-99) mg/dL Calcium 9.6 (8.4-10.2) mg/dL AST 32 (14-36) U/L ALT 18 (4-34) U/L Alkaline Phosphatase 123 (38-126) U/L Total Protein 7.5 (6.3-8.2) g/dL Albumin 4.4 (3.5-5.0) g/dL Calcium panel 06/03/22 Range/Units 17:59 Calcium 9.6 (8.4-10.2) mg/dL Albumin 4.4 (3.5-5.0) g/dL Pituitary panel 06/03/22 Range/Units 17:59 Sodium 139 (137-145) mmol/L Potassium 4.7 (3.5-5.1) mmol/L Chloride 107 (98-107) mmol/L Carbon Dioxide 24 (22-30) mmol/L BUN 38 H (7-17) mg/dL Creatinine 1.21 H (0.52-1.04) mg/dL Glucose 93 (74-99) mg/dL Calcium 9.6 (8.4-10.2) mg/dL Adrenal panel 06/03/22 Range/Units 17:59 Sodium 139 (137-145) mmol/L Potassium 4.7 (3.5-5.1) mmol/L Chloride 107 (98-107) mmol/L Carbon Dioxide 24 (22-30) mmol/L BUN 38 H (7-17) mg/dL Creatinine 1.21 H (0.52-1.04) mg/dL Glucose 93 (74-99) mg/dL Calcium 9.6 (8.4-10.2) mg/dL Total Bilirubin 0.5 (0.2-1.3) mg/dL AST 32 (14-36) U/L ALT 18 (4-34) U/L Alkaline Phosphatase 123 (38-126) U/L Total Protein 7.5 (6.3-8.2) g/dL Albumin 4.4 (3.5-5.0) g/dL
[2022-06-04 12:25] LABS: ALT 16 U/L (4-34); AST 33 U/L (14-36); African American GFR (CKD) 61 (>60 ml/min/1.73 sqM); Albumin 3.4 g/dL (3.5-5.0); Albumin/Globulin Ratio 1.3; Alkaline Phosphatase 85 U/L (38-126); Anion Gap 9 mmol/L; Blood Urea Nitrogen 31 mg/dL (7-17); Carbon Dioxide 19 mmol/L (22-30); Chloride 111 mmol/L (98-107); Globulin 2.6 g/dL; Glucose 102 mg/dL (74-99); Non-African American GFR(CKD) 53 (>60 ml/min/1.73 sqM); Potassium 4.1 mmol/L (3.5-5.1); Sodium 139 mmol/L (137-145); Total Bilirubin 0.7 mg/dL (0.2-1.3)
--- NOTE | 2022-06-04 12:49 | P.PN ---
Subjective Patient seen and examined at bedside. Patient denies shortness of breath but admits to rib pain status post fall. Patient's blood pressure this morning was elevated. Patient has yet to receive her morning medications on exam. Patient denies fever, chills, nausea, vomiting, diarrhea, or constipation. Objective - Vital Signs Vital signs: Vital Signs Temp 98.1 F 06/04/22 11:33 Pulse 71 06/04/22 11:33 Resp 18 06/04/22 11:33 BP 161/66 06/04/22 11:33 Pulse Ox 97 06/04/22 11:33 FiO2 Intake & Output 06/03/22 06/04/22 06/04/22 18:59 06:59 18:59 Intake Total 180 Balance 180 Weight 58.967 kg Intake: Oral 180 - Exam General: [non toxic], [no distress], [appears at stated age] Derm: [warm], [dry] Head: [atraumatic], [normocephalic], [symmetric] Eyes: [EOMI], [no lid lag], [anicteric sclera] Mouth: [no lip lesion], [mucus membranes moist] Cardiovascular: [S1S2 reg], [no murmur], [positive posterior tibial pulse bilateral], Lungs: [CTA bilateral], [no rhonchi, no rales] , [no accessory muscle use] rib pain right-sided Abdominal: [soft], [ nontender to palpation], [no guarding], [no appreciable organomegaly] Ext: [no gross muscle atrophy], [no edema], [no contractures] Neuro: [ CN II-XI grossly intact], [no focal neuro deficits] Psych: [Alert], [oriented], [appropriate affect] - Labs CBC & Chem 7: 06/03/22 17:59 06/04/22 11:20 Labs: Abnormal Lab Results - Last 24 Hours (Table) 06/03/22 06/03/22 06/04/22 Range/Units 17:59 17:59 06:57 Lymphocytes # 0.9 L (1.0-4.8) k/uL Chloride (98-107) mmol/L Carbon Dioxide (22-30) mmol/L BUN 38 H (7-17) mg/dL Creatinine 1.21 H (0.52-1.04) mg/dL Glucose (74-99) mg/dL Creatine Kinase 171 H (30-135) U/L Total Protein (6.3-8.2) g/dL Albumin (3.5-5.0) g/dL Urine Protein Trace H (Negative) 06/04/22 Range/Units 11:20 Lymphocytes # (1.0-4.8) k/uL Chloride 111 H (98-107) mmol/L Carbon Dioxide 19 L (22-30) mmol/L BUN 31 H (7-17) mg/dL Creatinine (0.52-1.04) mg/dL Glucose 102 H (74-99) mg/dL Creatine Kinase (30-135) U/L Total Protein 6.0 L (6.3-8.2) g/dL Albumin 3.4 L (3.5-5.0) g/dL Urine Protein (Negative) Assessment and Plan Assessment: Assessment/plan Acute kidney injury, resolved -IV fluids -Monitor BMP -Hold off on home diuretic Hypertension uncontrolled -Add metoprolol succinate 25 mg by mouth daily with parameters -Continue with home lisinopril -Hold off on home diuretic Right rib fracture status post trauma -Defer management including pain control and DVT prophylaxis to the primary surgery service
[2022-06-04] MEDS: HYDROcodone/APAP 5-325MG 1 EACH TAB PO PRN ×2 (13:07→21:52)
[2022-06-04] MEDS: LIDOCAINE 5% PATCH TOPICAL SCH (13:07)
[2022-06-04] MEDS: METOPROLOL SUCCINATE (ER) 25 MG TAB.ER.24H PO SCH (13:07)
[2022-06-04] MEDS: SODIUM CHLORIDE 0.9% 1,000 ML IV SCH (15:25)
[2022-06-04] MEDS: HEPARIN SODIUM,PORCINE/PF 5,000 UNIT/0.5 ML SYRINGE SQ SCH (21:50)
[2022-06-05] MEDS: SODIUM CHLORIDE 0.9% 1,000 ML IV SCH (01:00)
[2022-06-05] MEDS: HYDROcodone/APAP 5-325MG 1 EACH TAB PO PRN ×2 (01:52→10:24)
[2022-06-05 07:02] LABS: African American GFR (CKD) 54 (>60 ml/min/1.73 sqM); Anion Gap 0 mmol/L; Blood Urea Nitrogen 25 mg/dL (7-17); Calcium 8.7 mg/dL (8.4-10.2); Carbon Dioxide 23 mmol/L (22-30); Chloride 113 mmol/L (98-107); Glucose 86 mg/dL (74-99); Non-African American GFR(CKD) 46 (>60 ml/min/1.73 sqM); Potassium 3.7 mmol/L (3.5-5.1); Sodium 136 mmol/L (137-145)
[2022-06-05 08:40] VITALS: TEMP 97.7
[2022-06-05] MEDS: LIDOCAINE 5% PATCH TOPICAL SCH (09:23)
[2022-06-05] MEDS: PANTOPRAZOLE 40 MG TABLET PO SCH (09:25)
[2022-06-05] MEDS: HEPARIN SODIUM,PORCINE/PF 5,000 UNIT/0.5 ML SYRINGE SQ SCH (09:25)
[2022-06-05] MEDS: guaiFENesin 600 MG TABLET.ER PO SCH (09:25)
[2022-06-05] MEDS: METOPROLOL SUCCINATE (ER) 25 MG TAB.ER.24H PO SCH (09:26)
[2022-06-05] MEDS: SERTRALINE 100 MG TAB PO SCH (09:26)
[2022-06-05] MEDS: hydrALAZINE HCL 10 MG TAB PO SCH (09:26)
[2022-06-05] MEDS: lisinopriL 20 MG TAB PO SCH (09:26)
[2022-06-05 11:12] VITALS: BP 162/68; PULSE 67; RESP 17
[2022-06-05] MEDS ORDERED: BENZONATATE 100 MG CAP PO PRN (11:41)
--- NOTE | 2022-06-05 12:57 | P.DS ---
Providers Date of admission: 06/03/22 21:39 Expected date of discharge: 06/05/22 Attending physician: James Santos DO Consults: 06/03/22 21:37 Consult Physician Routine Consulting Provider: Estrada Ward Consult Reason/Comments: Medical management Do you want consulting provider notified?: Already Contacted Primary care physician: Nathaniel Leon MD Hospital Course: Discharge Diagnosis: Acute traumatic rib fracture Fall Imbalance Chest pain Hypertension Hospital Course: 89-year-old female with a PMH of hypertension and depression who had been brought to the emergency room after a fall with complaints of right chest pain. Patient claims that she has been recently falling at home, he attributes to losing her balance. She denies any lightheadedness, chest pain prior to falling. She denies any loss of consciousness or hitting her head. She underwent an extensive evaluation in the emergency room with a CT chest abdomen and pelvis with contrast showing a nondisplaced right rib #[address] brain was unremarkable with no acute abnormalities. EKG revealed sinus rhythm with PVCs at 81 bpm with T-wave inversion in leads III and V2. Chest x-ray was unremarkable. Laboratory evaluation was remarkable for creatinine of 1.21, up slightly from 0.94 on 01/23. Surgery was consulted. No acute interventions. Renal function improved with IV fluids. Orthostatic vitals not done prior to giving IV fluids. Due to her age, history of recent falls, diuretics discontinued. Patient also has lower extremity edema, hence not started on amlodipine. We'll discharge on new blood pressure regimen, needs outpatient follow-up for repeat BMP and further adjustments. Last echo in 02/21 showed LVEF of 55-60%, with no significant valvular dysfunction. Patient seen and examined at bedside. Vital signs reviewed and stable. General: nontoxic, no distress, appears at stated age Derm: warm, dry Head: atraumatic, normocephalic, symmetric Eyes: EOMI, no lid lag, anicteric sclera Mouth: no lip lesion, mucus membranes moist Cardiovascular: S1S2 reg, no murmur, right chest wall tenderness Lungs: CTA bilateral, no rhonchi, no rales , no accessory muscle use Abdominal: soft, nontender to palpation, no guarding, no appreciable organomegaly Ext: no gross muscle atrophy, no edema, no contractures Neuro: CN II-XI grossly intact, no focal neuro deficits Psych: Alert, oriented, appropriate affect A total of 33 minutes of time were spent preparing this complex discharge summary. Patient was discharged on 06/05/22 at 12:48. Patient Condition at Discharge: Stable Plan - Discharge Summary Discharge Rx Participant: No New Discharge Prescriptions: New hydrALAZINE HCL [Apresoline] 10 mg PO BID #60 tab Metoprolol Succinate (ER) [Toprol XL] 25 mg PO DAILY #30 tab lisinopriL [Zestril] 40 mg PO DAILY #60 tab Lidocaine 5% Patch [Lidoderm 5% Patch] 1 patch TOPICAL DAILY #14 patch guaiFENesin [Mucinex] 600 mg PO Q12HR #20 tab Acetaminophen Tab [Tylenol] 650 mg PO Q6HR PRN #60 tab PRN Reason: Mild Pain Or Fever > 100.5 Continue HYDROcodone/APAP 5-325MG [[place] 5-325] 1 tab PO BID PRN PRN Reason: Pain Sertraline [Zoloft] 100 mg PO DAILY Multivitamins, Thera [Multivitamin (formulary)] 1 tab PO DAILY Cranberry Fruit Extract [Cranberry] 500 mg PO DAILY Discontinued lisinopriL [Zestril] 20 mg PO DAILY hydroCHLOROthiazide 12.5 mg PO DAILY Furosemide [Lasix] 20 mg PO DAILY PRN PRN Reason: Edema Discharge Medication List HYDROcodone/APAP 5-325MG [[place] 5-325] 1 tab PO BID PRN 08/15/19 [History] Sertraline [Zoloft] 100 mg PO DAILY 06/03/22 [History] Cranberry Fruit Extract [Cranberry] 500 mg PO DAILY 06/04/22 [History] Multivitamins, Thera [Multivitamin (formulary)] 1 tab PO DAILY 06/04/22 [History] Acetaminophen Tab [Tylenol] 650 mg PO Q6HR PRN #60 tab 06/05/22 [Rx] Lidocaine 5% Patch [Lidoderm 5% Patch] 1 patch TOPICAL DAILY #14 patch 06/05/22 [Rx] Metoprolol Succinate (ER) [Toprol XL] 25 mg PO DAILY #30 tab 06/05/22 [Rx] guaiFENesin [Mucinex] 600 mg PO Q12HR #20 tab 06/05/22 [Rx] hydrALAZINE HCL [Apresoline] 10 mg PO BID #60 tab 02/02/23 [Rx] lisinopriL [Zestril] 40 mg PO DAILY #60 tab 06/05/22 [Rx] Follow up Appointment(s)/Referral(s): Nathaniel Leon MD [Primary Care Provider] - 1-2 days Patient Instructions/Handouts: Chronic Hypertension (DC), Rib Fracture (DC) Activity/Diet/Wound Care/Special Instructions: Please see your PCP as soon as possible to further adjust your BP medications. Discharge Disposition: HOME SELF-CARE
--- NOTE | 2022-06-05 13:29 | P.PN ---
Subjective Progress Note Date: 06/05/22 CHIEF COMPLAINT: Fall with fracture to right rib HISTORY OF PRESENT ILLNESS: The patient reports her pain is controlled. She has been ambulating with physical therapy. She is working on being discharged to [facility]. Patient lives at home alone and has had frequent falls. She is tolerating diet. Her pain is controlled. She is afebrile. She denies any new pain. Denies any abdominal pain. Afebrile. Sodium 136 potassium 3.7 creatinine 1.07 PHYSICAL EXAM: VITAL SIGNS: Reviewed. GENERAL: Well-developed in no acute distress. HEENT: No sclera icterus. Extraocular movements grossly intact. Moist buccal mucosa. Head is atraumatic, normocephalic. ABDOMEN: Soft. Nondistended. Nontender. NEUROLOGIC: Alert and oriented. Cranial nerves II through XII grossly intact. ASSESSMENT: 1. Fall with fracture to the right rib 2. Nondisplaced fracture right rib #9 3. Dehydration and acute kidney injury PLAN: -Patient can be discharged from surgical standpoint -Continue pain management with Lidoderm patch, Tylenol and [place] as needed -Patient follow-up with PCP -Agree with discharge to [facility] Physician B[employer] Grinder note has been reviewed by physician. Signing provider agrees with the documented findings, assessment, and plan of care. Objective - Vital Signs Vital signs: Vital Signs Temp 97.7 F 06/05/22 07:55 Pulse 67 06/05/22 11:00 Resp 17 06/05/22 11:00 BP 162/68 06/05/22 11:00 Pulse Ox 97 06/05/22 11:00 FiO2 Intake & Output 06/04/22 06/05/22 06/05/22 18:59 06:59 18:59 Intake Total 370 900 Output Total 450 Balance 370 450 Weight 58.967 kg Intake: IV 10 Invasive Line 1 10 Intake, IV Titration 900 Amount Sodium Chloride 0.9% 1, 900 000 ml @ 75 mls/hr IV . [id number] [facility] Rx#:[id number] Oral 360 Output: Urine 450 Other: Voiding Method External Catheter External Catheter External Catheter - Labs CBC & Chem 7: 06/03/22 17:59 06/05/22 06:17 Labs: Abnormal Lab Results - Last 24 Hours (Table) 06/05/22 Range/Units 06:17 Sodium 136 L (137-145) mmol/L Chloride 113 H (98-107) mmol/L BUN 25 H (7-17) mg/dL Creatinine 1.07 H (0.52-1.04) mg/dL
== END 2022-06-05 15:07 | DRG 206 ==
LOC: EC 16:39 → 4SSUR 21:39
PROVIDERS: ADMIT Internal Medicine; ATTEND Internal Medicine
DX: S22.31XA Fracture of one rib, right side, initial encounter for closed fracture (principal); N17.9 Acute kidney failure, unspecified; E86.0 Dehydration; I10 Essential (primary) hypertension; E78.5 Hyperlipidemia, unspecified; G47.30 Sleep apnea, unspecified; M19.90 Unspecified osteoarthritis, unspecified site; F17.210 Nicotine dependence, cigarettes, uncomplicated; F41.0 Panic disorder [episodic paroxysmal anxiety]; R29.6 Repeated falls; R26.89 Other abnormalities of gait and mobility; F43.10 Post-traumatic stress disorder, unspecified; G25.81 Restless legs syndrome; Z87.442 Personal history of urinary calculi; Z87.11 Personal history of peptic ulcer disease; W01.0XXA Fall on same level from slipping, tripping and stumbling without subsequent striking against object, initial encounter; Z79.899 Other long term (current) drug therapy; Z96.1 Presence of intraocular lens; Z98.42 Cataract extraction status, left eye; Z98.41 Cataract extraction status, right eye; Z90.710 Acquired absence of both cervix and uterus; I49.3 Ventricular premature depolarization
CPT/HCPCS: 36415; 70450; 71046; 71260; 74177; 80048; 80053; 81003; 82550; 83605; 83690; 83735; 84484; 85025; 85610; 85730; 93005; 96361; 96374; 99285